=== PATIENT | male | born 1940 | race Caucasian/White ===

== ENCOUNTER 2021-08-09 22:47 | Emergency (ER) | payer MEDICARE, SELFPAY ==
[2021-08-09 22:55] VITALS: BP 94/58; PULSE 85; RESP 17; TEMP 37.3; O2SAT 96; BMI 21.4
--- NOTE | 2021-08-10 00:43 | XRR_ITS ---
PROCEDURE INFORMATION: Exam: XR Chest Exam date and time: 08/10/2021 12:43 AM Age: 80 years old Clinical indication: Patient HX: C/O fever with loss of appetite. TECHNIQUE: Imaging protocol: XR of the chest. Views: 1 view. COMPARISON: No relevant prior studies available. FINDINGS: Lungs: Unremarkable. No consolidation. Pleural spaces: Unremarkable. No pleural effusion. No pneumothorax. Heart/Mediastinum: Unremarkable. No cardiomegaly. Bones/joints: Dextroscoliosis. XR/XR chest 1V portable [id number] IMPRESSION: No acute findings.
[2021-08-10 02:57] LABS: Basophils # 0.1 10^3/uL (0.0-0.1); Basophils % 0.5 %; Eosinophils % 0.1 %; Hematocrit 43.4 % (42.0-52.0); Hemoglobin 14.5 g/dL (11.7-16.6); Lymphocytes # 0.7 10^3/uL (0.8-4.8); Lymphocytes % 4.2 %; Mean Corpuscular HGB Conc 33.4 g/dL (30.0-36.0); Mean Corpuscular Hemoglobin 30.5 pg (28.0-34.0); Mean Corpuscular Volume 91.2 fl (80-94); Mean Platelet Volume 10.1 fL (7.4-10.4); Monocytes # 1.2 10^3/uL (0.2-0.9); Monocytes % 7.6 %; Neutrophils # 14.23 10^3/uL (1.8-7.7); Neutrophils % 86.9 %; Nucleated Red Blood Cells % 0 %; Platelet Count 183 10^3/cmm (130-400); Red Blood Count 4.76 10^6/uL (4.1-5.3); Red Cell Distribution Width 13.2 % (12.1-15.1); White Blood Count 16.4 10^3/uL (4.0-10.0)
--- NOTE | 2021-08-10 03:03 | CTR_ITS ---
PROCEDURE INFORMATION: Exam: CT Abdomen And Pelvis With Contrast Exam date and time: 08/10/2021 3:03 AM Age: 80 years old Clinical indication: Abdominal pain; Prior surgery; Surgery type: Gb; Patient HX: Periumbilical pain with fever and elevated wbc. ; Additional info: Abd oain TECHNIQUE: Imaging protocol: Computed tomography of the abdomen and pelvis with contrast. Radiation optimization: All CT scans at this facility use at least one of these dose optimization techniques: automated exposure control; mA and/or kV adjustment per patient size (includes targeted exams where dose is matched to clinical indication); or iterative reconstruction. Contrast material: OMNI 300; Contrast volume: 95 ml; Contrast route: INTRAVENOUS (IV); COMPARISON: CR (CHEST, ) 08/10/2021 2:59 AM RADIATION DOSE METRICS: Total DLP (mGy-cm): 956.62 FINDINGS: Lungs: Bibasilar fibrosis or scarring and tiny right basilar calcified granulomas. Liver: No acute abnormality. Incidental small inferior right hepatic lobe cyst. Gallbladder and bile ducts: Previous cholecystectomy. Pancreas: No acute abnormality. No ductal dilation. Spleen: No acute abnormality. Adrenal glands: No acute abnormality. No mass. Kidneys and ureters: Incidental simple appearing 6 cm posterior left renal cyst. No hydronephrosis or hydroureter. Stomach and bowel: A couple mid and distal duodenal diverticula. No significant or disproportionate large or small bowel distention. Fluid within small bowel with scattered air-fluid levels. [id number] amount of gas and stool within the colon. Colonic diverticulosis without CT evidence of diverticulitis. Appendix: No findings to suggest acute appendicitis. Intraperitoneal space: No significant fluid collection. No free air. Vasculature: Atherosclerotic vascular calcification. No aortic aneurysm. Lymph nodes: No enlarged lymph nodes. Urinary bladder: Mildly thickened but incompletely distended urinary bladder. Reproductive: Enlarged prostate which indents the urinary bladder base. Bones/joints: No acute osseous abnormality. No dislocation. Soft tissues: Mild right inguinal scarring. CT/CT abdomen pelvis w con* [id number] IMPRESSION: 1. Mild nonspecific ileus versus enteritis. 2. Colonic diverticulosis without CT evidence of diverticulitis. 3. Mildly thickened urinary bladder which may be secondary to incomplete distention versus cystitis/UTI. 4. Enlarged prostate which indents the urinary bladder base. 5. Previous cholecystectomy. COMMENTS: Consistent with the [employer]'s Incidental Findings Committee white paper (J Am Umesh Radiol 2018): Any incidental renal lesion less than 1 cm or classified as too small to characterize, or any incidental cystic renal lesion characterized as simple-appearing, is likely benign. No follow-up imaging is recommended for these lesions per consensus recommendations based on imaging criteria.
--- NOTE | 2021-08-10 03:11 | W.ED.FEVER ---
HPI - Fever General: Chief Complaint: Fever Stated Complaint: FEVER Time Seen by Provider: 08/10/21 02:59 Source: patient Mode of arrival: ambulatory Limitations: no limitations History of Present Illness: 80-year-old male states that over the last 5 to 6 days has been having generalized abdominal pain that is been cramping in nature states that it is currently a 4 out of 10 at its worst was yesterday about a 7 out of 10. He states that he is also had low-grade fevers he does have a temperature 99.2 here. Had some nausea denies any vomiting or diarrhea. Denies any worsening improving factors he is resting comfortably here. Denies any cough or congestion. Associated symptoms: Reports abdominal pain and chills; Deny chest pain, dysuria or headache(s) Review of Systems Const: Reports: fever(s) and chills Eyes: Denies: blurry vision or eye discomfort ENMT: Denies: throat pain or dental pain Card: Denies: chest pain Resp: Denies: dyspnea GI: Reports: abdominal pain : Denies: dysuria Musc: Denies: neck pain or back pain Skin/Breast: Denies: rash Neuro: Denies: headache(s) Psych: Denies: depression Eddie/Lymph: Denies: easy bruising All/Imm: Denies: urticaria PFSH ED PFSH: Family History (Updated 08/10/21 @ 03:12 by Bret Quesada MD) Denies family history of Cancer Social History (Updated 08/10/21 @ 03:12 by Bret Quesada MD) Substance/Drug Use: never Physical Exam Const: COMMON NORMALS: patient oriented x3 and healthy appearing HENMT: COMMON NORMALS: normocephalic and atraumatic HEAD & SCALP: normocephalic and atraumatic Eye: COMMON NORMALS: Equal, round and reactive pupils present and EOMs intact bilaterally PUPIL: Yes Equal, round and reactive pupils present Neck/C-Spine: COMMON NORMALS: full ROM and supple Chest: COMMONS NORMALS: normal inspection of the chest and normal palpation of entire chest wall Resp: COMMON NORMALS: normal respiratory effort, No retractions, No use of accessory muscles and clear to auscultation bilaterally AUSCULTATION: clear to auscultation bilaterally Cardio: COMMON NORMALS: regular rate, regular rhythm and No murmurs present (Cardio) RATE: regular rate RHYTHM: regular rhythm GI: COMMON NORMALS: Normal to inspection, nondistended, normoactive bowel sounds present, Soft to palpation, non-tender and no masses PALPATION: Yes Soft to palpation Extremity: COMMON NORMALS: normal to inspection and full ROM Neuro: COMMON NORMALS: patient oriented x3, moves all extremities and no focal motor deficits Psych: COMMON NORMALS: mental status grossly normal, Normal thought process present and cooperative THOUGHT PROCESS: Normal thought process present Skin: COMMON NORMALS: no rashes or lesions noted and no wounds GENERAL SKIN EXAM: no rashes or lesions noted Course Vital Signs: Vital signs: Vital Signs Temperature 99.2 F 08/09/21 22:55 Pulse Rate 82 08/10/21 04:04 Respiratory Rate 17 08/10/21 04:04 Blood Pressure 102/54 08/10/21 04:04 Pulse Oximetry 94 08/10/21 04:04 MDM - Fever Medical Decision Making Patient presents here with some abdominal cramping especially his lower abdominal area along with a fever. Does have an elevated white count possible urinary tract infection seen on CT does have hematuria as well. Lactates normal his exam initially and at discharge is benign with no signs of acute abdomen. We will place him on Keflex getting follow-up with urology. If he has any worsening symptoms he is to return immediately he understands and agrees to plan. Lab Data : 08/10/21 02:54 08/10/21 02:54 Radiology Impressions Chest X-Ray 08/10/21 00:43 IMPRESSION: No acute findings. Abdomen/Pelvis CT 08/10/21 03:03 IMPRESSION: 1. Mild nonspecific ileus versus enteritis. 2. Colonic diverticulosis without CT evidence of diverticulitis. 3. Mildly thickened urinary bladder which may be secondary to incomplete distention versus cystitis/UTI. 4. Enlarged prostate which indents the urinary bladder base. 5. Previous cholecystectomy. COMMENTS: Consistent with the [employer]'s Incidental Findings Committee white paper (J Am Umesh Radiol 2018): Any incidental renal lesion less than 1 cm or classified as too small to characterize, or any incidental cystic renal lesion characterized as simple-appearing, is likely benign. No follow-up imaging is recommended for these lesions per consensus recommendations based on imaging criteria. Laboratory Results WBC 16.4 10^3/uL (4.0-10.0) H 08/10/21 02:54 RBC 4.76 10^6/uL (4.1-5.3) 08/10/21 02:54 Hgb 14.5 g/dL (11.7-16.6) 08/10/21 02:54 Hct 43.4 % (42.0-52.0) 08/10/21 02:54 MCV 91.2 fl (80-94) 08/10/21 02:54 MCH 30.5 pg (28.0-34.0) 08/10/21 02:54 MCHC 33.4 g/dL (30.0-36.0) 08/10/21 02:54 RDW 13.2 % (12.1-15.1) 08/10/21 02:54 Plt Count 183 10^3/cmm (130-400) 08/10/21 02:54 MPV 10.1 fL (7.4-10.4) 08/10/21 02:54 Neut % (Auto) 86.9 % 08/10/21 02:54 Lymph % (Auto) 4.2 % 08/10/21 02:54 [place] % (Auto) 7.6 % 08/10/21 02:54 Eos % (Auto) 0.1 % 08/10/21 02:54 Baso % (Auto) 0.5 % 08/10/21 02:54 Neut # (Auto) 14.23 10^3/uL (1.8-7.7) H 08/10/21 02:54 Lymph # (Auto) 0.7 10^3/uL (0.8-4.8) L 08/10/21 02:54 [place] # (Auto) 1.2 10^3/uL (0.2-0.9) H 08/10/21 02:54 Eos # (Auto) 0.0 10^3/uL (0.0-0.8) 08/10/21 02:54 Baso # (Auto) 0.1 10^3/uL (0.0-0.1) 08/10/21 02:54 Nucleated RBC % (auto) 0 % 08/10/21 02:54 Nucleated RBCs # 0.0 /100WBC 08/10/21 02:54 Sodium 132 mmol/L (136-145) L 08/10/21 02:54 Potassium 4.7 mmol/L (3.5-5.1) 08/10/21 02:54 Chloride 98 mmol/L (98-107) 08/10/21 02:54 Carbon Dioxide 18 mmol/L (22-29) L 08/10/21 02:54 Anion Gap 20.7 (5-19) H 08/10/21 02:54 BUN 28 mg/dL (8-23) H 08/10/21 02:54 Creatinine 1.0 mg/dL (0.7-1.2) 08/10/21 02:54 GFR Calculation Not Reportable 08/10/21 02:54 Glucose 143 mg/dL (65-115) H 08/10/21 02:54 Calculated Osmolality 282 mOsm/kg (285-295) L 08/10/21 02:54 Lactate 1.3 mmol/L (0.5-2.2) 08/10/21 03:47 Calcium 9.5 mg/dL (8.5-10.5) 08/10/21 02:54 Total Bilirubin 0.7 mg/dL (0.15-1.2) 08/10/21 02:54 AST 47 U/L (0-40) H 08/10/21 02:54 ALT 31 U/L (0-41) 08/10/21 02:54 Alkaline Phosphatase 115 IU/L (40-130) 08/10/21 02:54 Total Protein 7.3 g/dL (6.6-8.7) 08/10/21 02:54 Albumin 3.7 g/dL (3.5-5.2) 08/10/21 02:54 Globulin 3.6 g/dL (1.3-4.6) 08/10/21 02:54 Lipase 34 U/L (13-60) 08/10/21 02:54 Urine Color Yellow (Yellow) 08/10/21 05:28 Urine Appearance Sl hazy (CLEAR) 08/10/21 05:28 Urine pH 5 (5-7) 08/10/21 05:28 Ur Specific [place] 1.020 (1.005-1.030) 08/10/21 05:28 Urine Protein Trace (Negative) 08/10/21 05:28 Urine Glucose (UA) Norm (Normal) 08/10/21 05:28 Urine Ketones 1+ (Negative) H 08/10/21 05:28 Urine Blood 3+ (Negative) H 08/10/21 05:28 Urine Nitrate Negative (Negative) 08/10/21 05:28 Urine Bilirubin 1+ (Negative) H 08/10/21 05:28 Urine Urobilinogen 1 mg/dL (Negative) H 08/10/21 05:28 Ur Leukocyte Esterase Negative (Negative) 08/10/21 05:28 Urine RBC >100 /hpf (0-2) H 08/10/21 05:28 Urine WBC 0-4 /hpf (0-5) H 08/10/21 05:28 Ur Squamous Epith Cells 0-4 /hpf (0-5) H 08/10/21 05:28 Amorphous Sediment Not Reportable 08/10/21 05:28 Urine Bacteria Trace /hpf (NONE) 08/10/21 05:28 Hyaline Casts 0-4 /lpf H 08/10/21 05:28 Urine Mucus 2+ /hpf 08/10/21 05:28 SARS-CoV-2 Ag (Rapid) Negative (Negative) 08/10/21 03:37 Imaging Data CXR: Radiologist's impression: XR/XR chest 1V portable [id number] IMPRESSION: No acute findings. CT Abd/Pel: Radiologist's impression: IMPRESSION: 1. Mild nonspecific ileus versus enteritis. 2. Colonic diverticulosis without CT evidence of diverticulitis. 3. Mildly thickened urinary bladder which may be secondary to incomplete distention versus cystitis/UTI. 4. Enlarged prostate which indents the urinary bladder base. 5. Previous cholecystectomy. 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
[2021-08-10 03:25] LABS: Alanine Aminotransferase 31 U/L (0-41); Albumin Level 3.7 g/dL (3.5-5.2); Alkaline Phosphatase 115 IU/L (40-130); Anion Gap 20.7 (5-19); Aspartate Amino Transferase 47 U/L (0-40); Blood Urea Nitrogen 28 mg/dL (8-23); Calcium 9.5 mg/dL (8.5-10.5); Carbon Dioxide 18 mmol/L (22-29); Chloride 98 mmol/L (98-107); Globulin 3.6 g/dL (1.3-4.6); Glucose 143 mg/dL (65-115); Lipase 34 U/L (13-60); Osmolality Calculated 282 mOsm/kg (285-295); Potassium 4.7 mmol/L (3.5-5.1); Sodium 132 mmol/L (136-145); Total Bilirubin 0.7 mg/dL (0.15-1.2); Total Protein 7.3 g/dL (6.6-8.7)
[2021-08-10 03:28] VITALS: BP 99/61; PULSE 88; RESP 17; O2SAT 93
[2021-08-10] MEDS: sodium chloride 0.9% 1,000 ML 999 ML IV (03:58)
[2021-08-10] MEDS: ondansetron 2 mg/ML SDV 2 mL 4 MG IVP (03:59)
[2021-08-10] MEDS: acetaminophen 325 mg Tablet 650 MG PO (03:59)
[2021-08-10 04:04] VITALS: BP 102/54; PULSE 82; RESP 17; O2SAT 94
[2021-08-10 04:32] LABS: Lactate (Lactic Acid level) 1.3 mmol/L (0.5-2.2)
[2021-08-10] MEDS: iohexol 300 mg/mL 100 mL Btl IV (04:37)
[2021-08-10 04:46] LABS: SARS Covid-2 Antigen Negative (Negative)
[2021-08-10 05:38] LABS: Bilirubin Urine 1+ (Negative); Blood Urine 3+ (Negative); Glucose Urine UA Norm (Normal); Ketones Urine 1+ (Negative); Leukocyte Esterase Urine Negative (Negative); Nitrate Urine Negative (Negative); Protein Urine Trace (Negative); Urine Appearance SL Hazy (CLEAR); Urine Color Yellow (Yellow); Urobilinogen Urine 1 mg/dL (Negative); pH Urine 5 (5-7)
[2021-08-10 05:39] LABS: Add Urine Culture? Yes; Add Urine Microscopic? YES; Bacteria Urine TRACE /hpf; Hyaline Casts Urine 0-4 /lpf; Mucus Urine 2+ /hpf; RBC Urine >100 /hpf (0-2); Squamous Epithelial Cell Urine 0-4 /hpf (0-5); WBC Urine 0-4 /hpf (0-5)
[2021-08-10 05:50] VITALS: TEMP 36.9
[2021-08-10 05:54] VITALS: BP 113/60; PULSE 76; RESP 18; O2SAT 95
--- NOTE | 2021-08-11 11:39 | DCPLANNER ---
Addendum entered by Deana Chavez 09/23/21 11:40: Patient had a follow up appointment scheduled for 09.02.[address] - patient did attend appointment. Addendum entered by Deana Chavez 08/12/21 04:32: Patient has a follow up appointment scheduled for Thursday, September 02, 2021 at 11:[address] Clinic will call patient with appointment information. Original Note: subcontracts manager had message to schedule a follow up appointment for patient with Dr. St. subcontracts manager emailed patients information to Yohan Baker and Julie at the office of Dr. St. Patients information will be printed and reviewed. Clinic will call patient with appointment information.
== END 2021-08-10 05:52 | disposition home or self-care (01) ==
PROVIDERS: Emergency Provider Emergency Medicine
DX: N30.01 Acute cystitis with hematuria (principal); Z20.822 Contact with and (suspected) exposure to COVID-19
CPT/HCPCS: 36415; 71045; 74177; 80053; 81001; 83605; 83690; 85025; 87086; 87426; 96361; 96374; 99284; J2405; J7030; Q9967

== ENCOUNTER → 2021-09-02 11:39 | Outpatient (BNVA) | payer MEDICARE, SELFPAY | PROVIDERS: PCP Urology; Visit Provider Urology | DX: R31.29 Other microscopic hematuria (principal) | CPT/HCPCS: 81003 ==

== ENCOUNTER 2021-12-30 15:41 | Emergency (ER) | payer MEDICARE, SELFPAY ==
[2021-12-30 16:02] VITALS: BP 117/74; PULSE 74; RESP 18; TEMP 37.6; O2SAT 97; BMI 21.6
[2021-12-30 17:02] LABS: Basophils # 0.1 10^3/uL (0.0-0.1); Eosinophils # 0.2 10^3/uL (0.0-0.8); Eosinophils % 1.8 %; Hematocrit 42.9 % (42.0-52.0); Hemoglobin 14.9 g/dL (11.7-16.6); Lymphocytes # 1.1 10^3/uL (0.8-4.8); Lymphocytes % 12.2 %; Mean Corpuscular HGB Conc 34.7 g/dL (30.0-36.0); Mean Corpuscular Hemoglobin 30.7 pg (28.0-34.0); Mean Corpuscular Volume 88.3 fl (80-94); Mean Platelet Volume 9.8 fL (7.4-10.4); Monocytes # 1.3 10^3/uL (0.2-0.9); Monocytes % 14.1 %; Neutrophils # 6.61 10^3/uL (1.8-7.7); Neutrophils % 70.4 %; Nucleated Red Blood Cells % 0 %; Platelet Count 165 10^3/cmm (130-400); Red Blood Count 4.86 10^6/uL (4.1-5.3); Red Cell Distribution Width 13.2 % (12.1-15.1); White Blood Count 9.4 10^3/uL (4.0-10.0)
[2021-12-30 17:21] LABS: Alanine Aminotransferase 21 U/L (0-41); Albumin Level 3.7 g/dL (3.5-5.2); Alkaline Phosphatase 74 IU/L (40-130); Anion Gap 16.5 (5-19); Aspartate Amino Transferase 27 U/L (0-40); Blood Urea Nitrogen 19 mg/dL (8-23); Calcium 8.8 mg/dL (8.5-10.5); Carbon Dioxide 22 mmol/L (22-29); Chloride 100 mmol/L (98-107); Globulin 4.1 g/dL (1.3-4.6); Glucose 67 mg/dL (65-115); Osmolality Calculated 279 mOsm/kg (285-295); Potassium 4.5 mmol/L (3.5-5.1); Sodium 134 mmol/L (136-145); Total Bilirubin 0.6 mg/dL (0.15-1.2); Total Protein 7.8 g/dL (6.6-8.7)
--- NOTE | 2021-12-30 17:36 | W.ED.WEAKNES ---
Documented by User: Maxim Louis DO 01/02/22 08:48 HPI - Weakness General: Chief complaint: Weakness Stated complaint: PCP sent for possible sepsis Time Seen by Provider: 12/30/21 17:35 Source: patient Mode of arrival: ambulatory Limitations: no limitations History of Present Illness: 81 yo male with generalized weakness. Sent in by his PCP. Patient was reporting hypotension generalized weakness. Report was at the doctor's office his blood pressures in the 80s he says he is felt weak for the last several days. He reports having history of pyelonephritis he still has several times the past he denies dysuria urgency or frequency or hematuria. MD Complaint: generalized weakness Onset (ago): minute(s) Duration: constant Location: generalized Severity: mild Relieving factors: none Exacerbating factors: none Associated symptoms: Denies chest pain, chills, confusion, melena, decreased appetite, diaphoresis, dysuria, easy bruising, fever(s), headache(s), myalgias, nausea, rash, short of breath, syncope or vomiting Review of Systems Const: Denies: fever(s), chills or diaphoresis Card: Denies: chest pain or syncope GI: Denies: nausea, vomiting or melena : Denies: dysuria Neuro: Denies: headache(s) or confusion Eddie/Lymph: Denies: easy bruising PFSH ED PFSH: Medical History (Updated 01/02/22 @ 08:48 by Maxim Louis DO) Diabetes mellitus Hematuria Myasthenia gravis Surgical History (Updated 01/02/22 @ 08:48 by Maxim Louis DO) Hx of appendectomy Hx of cholecystectomy Family History Father , AT 73 Heart disease Mother , AT 64 Diabetes Social History Smoking and tobacco status: never smoked Alcohol intake: never Marital status: Current occupational status: retired and disabled History of recent travel: No Physical Exam Const: GENERAL APPEARANCE: cooperative and comfortable ORIENTATION/CONSCIOUSNESS: Yes awake, Yes oriented to person, Yes oriented to place and Yes oriented to time HENMT: COMMON NORMALS: normocephalic and atraumatic HEAD & SCALP: normocephalic and atraumatic Neck/C-Spine: COMMON NORMALS: no JVD Resp: COMMON NORMALS: normal respiratory effort, No retractions, No use of accessory muscles and clear to auscultation bilaterally AUSCULTATION: clear to auscultation bilaterally Cardio: COMMON NORMALS: no JVD, regular rate, regular rhythm and No murmurs present (Cardio) RATE: regular rate RHYTHM: regular rhythm GI: COMMON NORMALS: Soft to palpation and No hepatosplenomegaly present AUSCULTATION: Yes normoactive bowel sounds PALPATION: Yes Soft to palpation, No Tenderness to palpation present (GI), No Guarding due to palpation present (GI) and Yes No hepatosplenomegaly present Extremity: COMMON NORMALS: normal to inspection, capillary refill normal, no clubbing, cyanosis or edema, no calf tenderness and no pedal edema Neuro: SENSORIUM/ORIENTATION: Yes oriented to person, Yes oriented to place and Yes oriented to time Skin: COMMON NORMALS: no rashes or lesions noted GENERAL SKIN EXAM: no rashes or lesions noted Course Vital Signs: Vital signs: Vital Signs Temperature 99.7 F H 12/30/21 16:02 Pulse Rate 72 12/30/21 20:03 Respiratory Rate 16 12/30/21 20:03 Blood Pressure 140/68 12/30/21 20:03 Pulse Oximetry 98 12/30/21 20:03 MDM - Weakness Medical Decision Making Care turned over to Dr. Benton at change of shift see his notes for final diagnosis and disposition Chest x-ray reveals a right lower lobe thin infiltrate, likely early. CBC is normal. BMP is normal. Urinalysis shows hematuria without infection. He will be placed on doxycycline, allowed home. His temperature was 99.7 here. He has not hypoxic. He has normal vital signs Lab Data : 12/30/21 16:55 12/30/21 16:55 Radiology Impressions Chest X-Ray 12/30/21 19:27 IMPRESSION: Background chronic interstitial lung disease. Cannot exclude more localized right lower lobe airspace disease. Consider pneumonia. Laboratory Results WBC 9.4 10^3/uL (4.0-10.0) 12/30/21 16:55 RBC 4.86 10^6/uL (4.1-5.3) 12/30/21 16:55 Hgb 14.9 g/dL (11.7-16.6) 12/30/21 16:55 Hct 42.9 % (42.0-52.0) 12/30/21 16:55 MCV 88.3 fl (80-94) 12/30/21 16:55 MCH 30.7 pg (28.0-34.0) 12/30/21 16:55 MCHC 34.7 g/dL (30.0-36.0) 12/30/21 16:55 RDW 13.2 % (12.1-15.1) 12/30/21 16:55 Plt Count 165 10^3/cmm (130-400) 12/30/21 16:55 MPV 9.8 fL (7.4-10.4) 12/30/21 16:55 Neut % (Auto) 70.4 % 12/30/21 16:55 Lymph % (Auto) 12.2 % 12/30/21 16:55 [place] % (Auto) 14.1 % 12/30/21 16:55 Eos % (Auto) 1.8 % 12/30/21 16:55 Baso % (Auto) 1.0 % 12/30/21 16:55 Neut # (Auto) 6.61 10^3/uL (1.8-7.7) 12/30/21 16:55 Lymph # (Auto) 1.1 10^3/uL (0.8-4.8) 12/30/21 16:55 [place] # (Auto) 1.3 10^3/uL (0.2-0.9) H 12/30/21 16:55 Eos # (Auto) 0.2 10^3/uL (0.0-0.8) 12/30/21 16:55 Baso # (Auto) 0.1 10^3/uL (0.0-0.1) 12/30/21 16:55 Nucleated RBC % (auto) 0 % 12/30/21 16:55 Nucleated RBCs # 0.0 /100WBC 12/30/21 16:55 Sodium 134 mmol/L (136-145) L 12/30/21 16:55 Potassium 4.5 mmol/L (3.5-5.1) 12/30/21 16:55 Chloride 100 mmol/L (98-107) 12/30/21 16:55 Carbon Dioxide 22 mmol/L (22-29) 12/30/21 16:55 Anion Gap 16.5 (5-19) 12/30/21 16:55 BUN 19 mg/dL (8-23) 12/30/21 16:55 Creatinine 1.0 mg/dL (0.7-1.2) 12/30/21 16:55 GFR Calculation Not Reportable 12/30/21 16:55 Glucose 67 mg/dL (65-115) 12/30/21 16:55 Calculated Osmolality 279 mOsm/kg (285-295) L 12/30/21 16:55 Calcium 8.8 mg/dL (8.5-10.5) 12/30/21 16:55 Total Bilirubin 0.6 mg/dL (0.15-1.2) 12/30/21 16:55 AST 27 U/L (0-40) 12/30/21 16:55 ALT 21 U/L (0-41) 12/30/21 16:55 Alkaline Phosphatase 74 IU/L (40-130) 12/30/21 16:55 Total Protein 7.8 g/dL (6.6-8.7) 12/30/21 16:55 Albumin 3.7 g/dL (3.5-5.2) 12/30/21 16:55 Globulin 4.1 g/dL (1.3-4.6) 12/30/21 16:55 Urine Color Yellow (Yellow) 12/30/21 17:25 Urine Appearance Clear (CLEAR) 12/30/21 17:25 Urine pH 5 (5-7) 12/30/21 17:25 Ur Specific [place] 1.020 (1.005-1.030) 12/30/21 17:25 Urine Protein Neg (Negative) 12/30/21 17:25 Urine Glucose (UA) Norm (Normal) 12/30/21 17:25 Urine Ketones Negative (Negative) 12/30/21 17:25 Urine Blood 3+ (Negative) H 12/30/21 17:25 Urine Nitrate Negative (Negative) 12/30/21 17:25 Urine Bilirubin Neg (Negative) 12/30/21 17:25 Urine Urobilinogen Norm mg/dL (Negative) 12/30/21 17:25 Ur Leukocyte Esterase Negative (Negative) 12/30/21 17:25 Urine RBC 5-10 /hpf (0-2) H 12/30/21 17:25 Urine WBC 0-4 /hpf (0-5) H 12/30/21 17:25 Ur Squamous Epith Cells 0-4 /hpf (0-5) H 12/30/21 17:25 Amorphous Sediment Not Reportable 12/30/21 17:25 Urine Bacteria None /hpf (NONE) 12/30/21 17:25 Discharge Plan Discharge Patient Disposition: Home Clinical Impression: Pneumonia Condition: Stable Prescriptions: New doxycycline hyclate 100 mg capsule 100 mg PO BID 10 Days Qty: 20 0RF No Action carvedilol 6.25 mg tablet 6.25 mg PO BID 0RF Rx Instructions: must administer with a meal/food Levemir FlexTouch U-100 Insuln 100 unit/mL (3 mL) insulin pen 100 unit SUBCUT DAILY 0RF acyclovir 200 mg capsule 200 mg PO DAILY 0RF docusate sodium 100 mg capsule 100 mg PO DAILY 0RF pyridostigmine bromide 60 mg tablet 60 mg PO TID 0RF pantoprazole 40 mg tablet,delayed release (DR/EC) 40 mg PO DAILY 0RF multivitamin Tablet 1 tab PO DAILY 0RF simvastatin 40 mg tablet 40 mg PO DAILY 0RF ramipril 5 mg capsule 5 mg PO DAILY 0RF rivaroxaban 20 mg tablet 20 mg PO DAILY 0RF Rx Instructions: must administer with evening meal insulin aspart U-100 [Novolog U-100 Insulin aspart] 100 unit/mL solution 10 unit SUBCUT TID 0RF Discharge Orders: Discharge ED (Routine); Ordered 12/30/21 Ordered By: Jackson Benton Referrals: Amado St MD [Primary Care Provider] - Discharge Diet: Advance as tolerated Discharge Activity: Increase activity as tolerated Patient Instructions: Pneumonia (ED) Activity Restrictions/Additional Instructions: Watch your temperature at least twice daily for the next 48 hours. Antibiotics as directed. Return for inability to control temperature with Tylenol, etc. Return also for worsening mental status, shortness of breath, fever despite 3-4 doses of antibiotics, any other concerning symptoms. Coding Level of Care Code ED Waterworks Operator for Chg Fwd Exam Comprehensive Documented by User: Jackson Benton DO 01/02/22 13:25 HPI - Weakness General: Chief complaint: Weakness Stated complaint: PCP sent for possible sepsis Time Seen by Provider: 12/30/21 17:35 History of Present Illness: 81 yo male with generalized weakness. Sent in by his doctor. No specific complaints. PFSH ED PFSH: Medical History (Updated 01/02/22 @ 08:48 by Maxim Louis DO) Diabetes mellitus Hematuria Myasthenia gravis Surgical History (Updated 01/02/22 @ 08:48 by Maxim Louis DO) Hx of appendectomy Hx of cholecystectomy Family History Father , AT 73 Heart disease Mother , AT 64 Diabetes Social History Smoking and tobacco status: never smoked Alcohol intake: never Marital status: Current occupational status: retired and disabled History of recent travel: No Course Vital Signs: Vital signs: Vital Signs Temperature 99.7 F H 12/30/21 16:02 Pulse Rate 72 12/30/21 20:03 Respiratory Rate 16 12/30/21 20:03 Blood Pressure 140/68 12/30/21 20:03 Pulse Oximetry 98 12/30/21 20:03 MDM - Weakness Medical Decision Making Chest x-ray reveals a right lower lobe thin infiltrate, likely early. CBC is normal. BMP is normal. Urinalysis shows hematuria without infection. He will be placed on doxycycline, allowed home. His temperature was 99.7 here. He has not hypoxic. He has normal vital signs Lab Data : 12/30/21 16:55 12/30/21 16:55 Radiology Impressions Chest X-Ray 12/30/21 19:27 IMPRESSION: Background chronic interstitial lung disease. Cannot exclude more localized right lower lobe airspace disease. Consider pneumonia. Laboratory Results WBC 9.4 10^3/uL (4.0-10.0) 12/30/21 16:55 RBC 4.86 10^6/uL (4.1-5.3) 12/30/21 16:55 Hgb 14.9 g/dL (11.7-16.6) 12/30/21 16:55 Hct 42.9 % (42.0-52.0) 12/30/21 16:55 MCV 88.3 fl (80-94) 12/30/21 16:55 MCH 30.7 pg (28.0-34.0) 12/30/21 16:55 MCHC 34.7 g/dL (30.0-36.0) 12/30/21 16:55 RDW 13.2 % (12.1-15.1) 12/30/21 16:55 Plt Count 165 10^3/cmm (130-400) 12/30/21 16:55 MPV 9.8 fL (7.4-10.4) 12/30/21 16:55 Neut % (Auto) 70.4 % 12/30/21 16:55 Lymph % (Auto) 12.2 % 12/30/21 16:55 [place] % (Auto) 14.1 % 12/30/21 16:55 Eos % (Auto) 1.8 % 12/30/21 16:55 Baso % (Auto) 1.0 % 12/30/21 16:55 Neut # (Auto) 6.61 10^3/uL (1.8-7.7) 12/30/21 16:55 Lymph # (Auto) 1.1 10^3/uL (0.8-4.8) 12/30/21 16:55 [place] # (Auto) 1.3 10^3/uL (0.2-0.9) H 12/30/21 16:55 Eos # (Auto) 0.2 10^3/uL (0.0-0.8) 12/30/21 16:55 Baso # (Auto) 0.1 10^3/uL (0.0-0.1) 12/30/21 16:55 Nucleated RBC % (auto) 0 % 12/30/21 16:55 Nucleated RBCs # 0.0 /100WBC 12/30/21 16:55 Sodium 134 mmol/L (136-145) L 12/30/21 16:55 Potassium 4.5 mmol/L (3.5-5.1) 12/30/21 16:55 Chloride 100 mmol/L (98-107) 12/30/21 16:55 Carbon Dioxide 22 mmol/L (22-29) 12/30/21 16:55 Anion Gap 16.5 (5-19) 12/30/21 16:55 BUN 19 mg/dL (8-23) 12/30/21 16:55 Creatinine 1.0 mg/dL (0.7-1.2) 12/30/21 16:55 GFR Calculation Not Reportable 12/30/21 16:55 Glucose 67 mg/dL (65-115) 12/30/21 16:55 Calculated Osmolality 279 mOsm/kg (285-295) L 12/30/21 16:55 Calcium 8.8 mg/dL (8.5-10.5) 12/30/21 16:55 Total Bilirubin 0.6 mg/dL (0.15-1.2) 12/30/21 16:55 AST 27 U/L (0-40) 12/30/21 16:55 ALT 21 U/L (0-41) 12/30/21 16:55 Alkaline Phosphatase 74 IU/L (40-130) 12/30/21 16:55 Total Protein 7.8 g/dL (6.6-8.7) 12/30/21 16:55 Albumin 3.7 g/dL (3.5-5.2) 12/30/21 16:55 Globulin 4.1 g/dL (1.3-4.6) 12/30/21 16:55 Urine Color Yellow (Yellow) 12/30/21 17:25 Urine Appearance Clear (CLEAR) 12/30/21 17:25 Urine pH 5 (5-7) 12/30/21 17:25 Ur Specific [place] 1.020 (1.005-1.030) 12/30/21 17:25 Urine Protein Neg (Negative) 12/30/21 17:25 Urine Glucose (UA) Norm (Normal) 12/30/21 17:25 Urine Ketones Negative (Negative) 12/30/21 17:25 Urine Blood 3+ (Negative) H 12/30/21 17:25 Urine Nitrate Negative (Negative) 12/30/21 17:25 Urine Bilirubin Neg (Negative) 12/30/21 17:25 Urine Urobilinogen Norm mg/dL (Negative) 12/30/21 17:25 Ur Leukocyte Esterase Negative (Negative) 12/30/21 17:25 Urine RBC 5-10 /hpf (0-2) H 12/30/21 17:25 Urine WBC 0-4 /hpf (0-5) H 12/30/21 17:25 Ur Squamous Epith Cells 0-4 /hpf (0-5) H 12/30/21 17:25 Amorphous Sediment Not Reportable 12/30/21 17:25 Urine Bacteria None /hpf (NONE) 12/30/21 17:25 Discharge Plan Discharge Patient Disposition: Home Clinical Impression: Pneumonia Condition: Stable Prescriptions: New doxycycline hyclate 100 mg capsule 100 mg PO BID 10 Days Qty: 20 0RF No Action carvedilol 6.25 mg tablet 6.25 mg PO BID 0RF Rx Instructions: must administer with a meal/food Levemir FlexTouch U-100 Insuln 100 unit/mL (3 mL) insulin pen 100 unit SUBCUT DAILY 0RF acyclovir 200 mg capsule 200 mg PO DAILY 0RF docusate sodium 100 mg capsule 100 mg PO DAILY 0RF pyridostigmine bromide 60 mg tablet 60 mg PO TID 0RF pantoprazole 40 mg tablet,delayed release (DR/EC) 40 mg PO DAILY 0RF multivitamin Tablet 1 tab PO DAILY 0RF simvastatin 40 mg tablet 40 mg PO DAILY 0RF ramipril 5 mg capsule 5 mg PO DAILY 0RF rivaroxaban 20 mg tablet 20 mg PO DAILY 0RF Rx Instructions: must administer with evening meal insulin aspart U-100 [Novolog U-100 Insulin aspart] 100 unit/mL solution 10 unit SUBCUT TID 0RF Discharge Orders: Discharge ED (Routine); Ordered 12/30/21 Ordered By: Jackson Benton Referrals: Amado St MD [Primary Care Provider] - Discharge Diet: Advance as tolerated Discharge Activity: Increase activity as tolerated Patient Instructions: Pneumonia (ED) Activity Restrictions/Additional Instructions: Watch your temperature at least twice daily for the next 48 hours. Antibiotics as directed. Return for inability to control temperature with Tylenol, etc. Return also for worsening mental status, shortness of breath, fever despite 3-4 doses of antibiotics, any other concerning symptoms. Coding Level of Care Code ED Waterworks Operator for g Fwd Exam Comprehensive
[2021-12-30 17:49] VITALS: BP 129/64; PULSE 73; RESP 16; O2SAT 95
[2021-12-30 18:01] LABS: Add Urine Microscopic? YES; Bilirubin Urine Neg (Negative); Blood Urine 3+ (Negative); Glucose Urine UA Norm (Normal); Ketones Urine Negative (Negative); Leukocyte Esterase Urine Negative (Negative); Nitrate Urine Negative (Negative); Protein Urine Neg (Negative); Urine Appearance Clear (CLEAR); Urine Color Yellow (Yellow); Urobilinogen Urine Norm (Negative); pH Urine 5 (5-7)
[2021-12-30 18:05] LABS: Add Urine Culture? No; Squamous Epithelial Cell Urine 0-4 /hpf (0-5); WBC Urine 0-4 /hpf (0-5)
--- NOTE | 2021-12-30 19:27 | XRR_ITS ---
PROCEDURE INFORMATION: Exam: XR Chest Exam date and time: 12/30/2021 7:33 PM Age: 81 years old Clinical indication: Other: Weakness TECHNIQUE: Imaging protocol: Radiologic exam of the chest. Views: 1 view. COMPARISON: CR XR chest 1V portable [id number] 08/10/2021 2:59 AM FINDINGS: Lungs: Reticular changes of interstitium. Suspect lower lung fibrosis. No definite consolidation. However, increased infrahilar markings on the right are nonspecific. Pleural spaces: Unremarkable. No pleural effusion. No pneumothorax. Heart/Mediastinum: Unremarkable. No cardiomegaly. Bones/joints: Unremarkable. XR/XR chest 1V portable [id number] IMPRESSION: Background chronic interstitial lung disease. Cannot exclude more localized right lower lobe airspace disease. Consider pneumonia.
[2021-12-30] MEDS: doxycycline 100 mg Tablet PO (20:00)
[2021-12-30 20:03] VITALS: BP 140/68; PULSE 72; RESP 16; O2SAT 98
== END 2021-12-30 20:07 | disposition home or self-care (01) ==
PROVIDERS: Family Medicine; Emergency Provider Emergency Medicine; PCP Urology
DX: J18.9 Pneumonia, unspecified organism (principal); Z79.4 Long term (current) use of insulin; E11.9 Type 2 diabetes mellitus without complications
CPT/HCPCS: 71045; 80053; 81000; 81001; 85025; 99284

== ENCOUNTER 2022-01-17 12:25 | Observation (INO) | payer MEDICARE, SELFPAY ==
[2022-01-17 12:54] VITALS: BP 83/49; PULSE 87; RESP 20; TEMP 36.7; O2SAT 95; BMI 21.2
--- NOTE | 2022-01-17 13:01 | XRR_ITS ---
PROCEDURE INFORMATION: Exam: XR Chest Exam date and time: 01/17/2022 2:21 PM Age: 81 years old Clinical indication: Shortness of breath; Prior surgery; Surgery type: Gallbladder, appendix TECHNIQUE: Imaging protocol: Radiologic exam of the chest. Views: 1 view. COMPARISON: CR (CHEST, ) 12/30/2021 7:33 PM FINDINGS: Lungs: Unremarkable. No consolidation. Pleural spaces: Unremarkable. No pleural effusion. No pneumothorax. Heart/Mediastinum: Unremarkable. No cardiomegaly. Bones/joints: Unremarkable. XR/XR chest 1V portable [id number] IMPRESSION: No acute findings.
[2022-01-17 13:59] LABS: Influenza A by IFA Negative (Negative); Influenza B by IFA Negative (Negative)
[2022-01-17 14:16] LABS: Add Urine Microscopic? NO; Charge for UA Resulting for Rev
[2022-01-17 14:18] LABS: Bilirubin Urine Neg (Negative); Blood Urine Neg (Negative); Glucose Urine UA Norm (Normal); Ketones Urine Negative (Negative); Leukocyte Esterase Urine Negative (Negative); Nitrate Urine Negative (Negative); Protein Urine Neg (Negative); Urine Appearance Clear (CLEAR); Urine Color Yellow (Yellow); Urobilinogen Urine Norm (Negative); pH Urine 5 (5-7)
[2022-01-17 14:27] LABS: Basophils # 0.1 10^3/uL (0.0-0.1); Basophils % 0.6 %; Eosinophils # 0.1 10^3/uL (0.0-0.8); Eosinophils % 0.6 %; Hematocrit 45.9 % (42.0-52.0); Hemoglobin 15.8 g/dL (11.7-16.6); Lymphocytes # 1.2 10^3/uL (0.8-4.8); Lymphocytes % 5.8 %; Mean Corpuscular HGB Conc 34.4 g/dL (30.0-36.0); Mean Corpuscular Hemoglobin 30.6 pg (28.0-34.0); Mean Corpuscular Volume 88.8 fl (80-94); Monocytes # 1.6 10^3/uL (0.2-0.9); Monocytes % 7.6 %; Neutrophils # 17.95 10^3/uL (1.8-7.7); Neutrophils % 84.2 %; Nucleated Red Blood Cells % 0 %; Platelet Count 239 10^3/cmm (130-400); Red Blood Count 5.17 10^6/uL (4.1-5.3); Red Cell Distribution Width 13.3 % (12.1-15.1); White Blood Count 21.3 10^3/uL (4.0-10.0)
[2022-01-17 14:43] LABS: Lactic Sepsis W/Reflex 2.2 mmol/L (0.5-2.2)
[2022-01-17 15:17] LABS: Alanine Aminotransferase 49 U/L (0-41); Albumin Level 3.8 g/dL (3.5-5.2); Alkaline Phosphatase 80 IU/L (40-130); Anion Gap 14.2 (5-19); Aspartate Amino Transferase 39 U/L (0-40); Blood Urea Nitrogen 25 mg/dL (8-23); Calcium 9.3 mg/dL (8.5-10.5); Carbon Dioxide 29 mmol/L (22-29); Chloride 99 mmol/L (98-107); Globulin 3.2 g/dL (1.3-4.6); Glucose 99 mg/dL (65-115); Osmolality Calculated 290 mOsm/kg (285-295); Potassium 4.2 mmol/L (3.5-5.1); Sodium 138 mmol/L (136-145); Total Bilirubin 0.6 mg/dL (0.15-1.2)
[2022-01-17 15:20] LABS: Procalcitonin 1.91 ng/mL (0-0.5)
[2022-01-17 16:11] LABS: Reflex Lactate Order REFLEX LACTIC ORDERD
[2022-01-17 16:58] LABS: Adenovirus Not Detected (NOT DETECT); Chlamydia Pneumoniae Not Detected (NOT DETECT); Coronavirus 229E,HKU1,NL63,OC4 Not Detected (NOT DETECT); Human Metapneumovirus Not Detected (NOT DETECT); Human Rhinovirus/Enterovirus Not Detected (NOT DETECT); Influenza A Not Detected (NOT DETECT); Influenza A H1 Not Detected (NOT DETECT); Influenza A H1-2009 Not Detected (NOT DETECT); Influenza A H3 Not Detected (NOT DETECT); Influenza B Not Detected (NOT DETECT); Mycoplasma Pneumoniae Not Detected (NOT DETECT); Parainfluenza Virus Type 1 Not Detected (NOT DETECT); Parainfluenza Virus Type 2 Not Detected (NOT DETECT); Parainfluenza Virus Type 3 Not Detected (NOT DETECT); Parainfluenza Virus Type 4 Not Detected (NOT DETECT); Respiratory Syncytial Virus A Not Detected (NOT DETECT); Respiratory Syncytial Virus B Not Detected (NOT DETECT); SARS-COV-2 Not Detected (NOT DETECT)
[2022-01-17 17:39] LABS: Glucose Point of Care 233 mg/dL (70-110)
[2022-01-17 18:00] VITALS: BP 92/42; PULSE 72; RESP 16; TEMP 37.5; O2SAT 97
--- NOTE | 2022-01-17 18:22 | ED_ITS ---
HPI - General Adult General: Chief complaint: COVID symptoms Stated complaint: cough, fever, ams Time Seen by Provider: 01/17/22 17:42 History of Present Illness: Patient is a 81-year-old male with a history of diabetes, myasthenia gravis who presents the emergency room for evaluation of nonproductive cough, fever and chills and respiratory distress this morning. Patient woke up this morning feeling chills since then has not been feeling well. Patient reports shortness of breath and nonproductive cough. Patient denies any history of COPD or asthma does not require oxygen at baseline. Denies any history of smoking. Patient denies any associate chest pain, nausea/vomiting, diarrhea melena hematochezia. Patient denies any urinary complaints Onset: earlier today Duration:ongoing Location:home Severity:moderate Associated symptoms: Reports dyspnea and malaise; Deny chest pain, nausea, rash, palpitations or vomiting Review of Systems Const: Reports: fever(s), chills, fatigue and malaise Eyes: Denies: change in vision ENMT: Denies: mouth pain Card: Denies: chest pain or palpitations Resp: Reports: dyspnea and non-productive cough GI: Denies: abdominal pain, nausea, vomiting or diarrhea : Denies: dysuria Musc: Denies: extremity pain Skin/Breast: Denies: rash or new lesions Neuro: Denies: weakness in extremities Psych: Reports: other (Normal mood) Eddie/Lymph: Denies: easy bruising PFSH ED PFSH: Medical History Diabetes mellitus Hematuria Myasthenia gravis Surgical History Hx of appendectomy Hx of cholecystectomy Family History Father , AT 73 Heart disease Mother , AT 64 Diabetes Social History Smoking and tobacco status: never smoked Alcohol intake: never Marital status: Current occupational status: retired and disabled History of recent travel: No Physical Exam Const: COMMON NORMALS: alert HENMT: COMMON NORMALS: atraumatic HEAD & SCALP: atraumatic MOUTH: moist mucous membranes not abnormal Eye: COMMON NORMALS: EOMs intact bilaterally and conjunctivae normal CONJUNCTIVA: Yes conjunctivae normal Neck/C-Spine: COMMON NORMALS: full ROM and supple Resp: COMMON NORMALS: normal respiratory effort and clear to auscultation bilaterally AUSCULTATION: clear to auscultation bilaterally Cardio: COMMON NORMALS: regular rate RATE: regular rate GI: COMMON NORMALS: Soft to palpation and non-tender PALPATION: Yes Soft to palpation Extremity: COMMON NORMALS: full ROM Neuro: SENSORIUM/ORIENTATION: Yes alert MOTOR EXAM: No Abnormal motor strength present and Other motor observations present (no focal motor deficits) Psych: COMMON NORMALS: speech normal SPEECH: Yes normal speech MOOD & AFFECT: Yes euthymic mood Course Vital Signs: Vital signs: Vital Signs Temperature 99.5 F 01/17/22 18:00 Pulse Rate 67 01/17/22 19:26 Respiratory Rate 19 H 01/17/22 19:26 Blood Pressure 95/52 01/17/22 19:26 Pulse Oximetry 95 01/17/22 19:26 [facility] - General Adult Medical Decision Making 81-year-old male with history of diabetes, myasthenia gravis presenting to the emergency room with dyspnea, generalized weakness, cough, and fatigue since this morning. On arrival, patient is afebrile in ER. O2 sats greater 96% on room air. Patient is noted to have white count 21 0.3. X-ray chest negative for any pneumonia. Pro-Gabe appears to be elevated. COVID PCR is negative. At this time, it is presumed that patient may have pneumonia. Patient received ceftriaxone azithromycin. Patient will be admitted to the hospital for further evaluation. Disposition: admission Lab Data : 01/17/22 14:20 01/17/22 14:20 Radiology Impressions Chest X-Ray 01/17/22 13:01 IMPRESSION: No acute findings. Laboratory Results WBC 21.3 10^3/uL (4.0-10.0) H 01/17/22 14:20 RBC 5.17 10^6/uL (4.1-5.3) 01/17/22 14:20 Hgb 15.8 g/dL (11.7-16.6) 01/17/22 14:20 Hct 45.9 % (42.0-52.0) 01/17/22 14:20 MCV 88.8 fl (80-94) 01/17/22 14:20 MCH 30.6 pg (28.0-34.0) 01/17/22 14:20 MCHC 34.4 g/dL (30.0-36.0) 01/17/22 14:20 RDW 13.3 % (12.1-15.1) 01/17/22 14:20 Plt Count 239 10^3/cmm (130-400) 01/17/22 14:20 MPV 10.0 fL (7.4-10.4) 01/17/22 14:20 Neut % (Auto) 84.2 % 01/17/22 14:20 Lymph % (Auto) 5.8 % 01/17/22 14:20 [place] % (Auto) 7.6 % 01/17/22 14:20 Eos % (Auto) 0.6 % 01/17/22 14:20 Baso % (Auto) 0.6 % 01/17/22 14:20 Neut # (Auto) 17.95 10^3/uL (1.8-7.7) H 01/17/22 14:20 Lymph # (Auto) 1.2 10^3/uL (0.8-4.8) 01/17/22 14:20 [place] # (Auto) 1.6 10^3/uL (0.2-0.9) H 01/17/22 14:20 Eos # (Auto) 0.1 10^3/uL (0.0-0.8) 01/17/22 14:20 Baso # (Auto) 0.1 10^3/uL (0.0-0.1) 01/17/22 14:20 Nucleated RBC % (auto) 0 % 01/17/22 14:20 Nucleated RBCs # 0.0 /100WBC 01/17/22 14:20 Sodium 138 mmol/L (136-145) 01/17/22 14:20 Potassium 4.2 mmol/L (3.5-5.1) 01/17/22 14:20 Chloride 99 mmol/L (98-107) 01/17/22 14:20 Carbon Dioxide 29 mmol/L (22-29) 01/17/22 14:20 Anion Gap 14.2 (5-19) 01/17/22 14:20 BUN 25 mg/dL (8-23) H 01/17/22 14:20 Creatinine 1.1 mg/dL (0.7-1.2) 01/17/22 14:20 GFR Calculation Not Reportable 01/17/22 14:20 Glucose 99 mg/dL (65-115) 01/17/22 14:20 POC Glucose 233 mg/dL (70-110) H 01/17/22 17:37 Calculated Osmolality 290 mOsm/kg (285-295) 01/17/22 14:20 Lactic Acid 2.2 mmol/L (0.5-2.2) 01/17/22 14:20 Lactic Acid (Sepsis) 3.0 mmol/L (0.5-2.2) H 01/17/22 17:42 Calcium 9.3 mg/dL (8.5-10.5) 01/17/22 14:20 Total Bilirubin 0.6 mg/dL (0.15-1.2) 01/17/22 14:20 AST 39 U/L (0-40) 01/17/22 14:20 ALT 49 U/L (0-41) H 01/17/22 14:20 Alkaline Phosphatase 80 IU/L (40-130) 01/17/22 14:20 Total Protein 7.0 g/dL (6.6-8.7) 01/17/22 14:20 Albumin 3.8 g/dL (3.5-5.2) 01/17/22 14:20 Globulin 3.2 g/dL (1.3-4.6) 01/17/22 14:20 Procalcitonin 1.91 ng/mL (0-0.5) H 01/17/22 14:20 Urine Color Yellow (Yellow) 01/17/22 14:12 Urine Appearance Clear (CLEAR) 01/17/22 14:12 Urine pH 5 (5-7) 01/17/22 14:12 Ur Specific [place] 1.010 (1.005-1.030) 01/17/22 14:12 Urine Protein Neg (Negative) 01/17/22 14:12 Urine Glucose (UA) Norm (Normal) 01/17/22 14:12 Urine Ketones Negative (Negative) 01/17/22 14:12 Urine Blood Neg (Negative) 01/17/22 14:12 Urine Nitrate Negative (Negative) 01/17/22 14:12 Urine Bilirubin Neg (Negative) 01/17/22 14:12 Urine Urobilinogen Norm mg/dL (Negative) 01/17/22 14:12 Ur Leukocyte Esterase Negative (Negative) 01/17/22 14:12 Coronavirus 229E (PCR) Not detected (NOT DETECT) 01/17/22 13:00 Influenza Type A Ag Negative (Negative) 01/17/22 13:00 Influenza Type B Ag Negative (Negative) 01/17/22 13:00 SARS-CoV-2 (PCR) Not detected (NOT DETECT) 01/17/22 13:00 Imaging Data Other Imaging: Radiologist's impression: [address] [id number] XRay Report Signed Patient: Willam Christina Unit #: [id number] : 1940 Age/Sex: 81 / M ADM Date: 01/17/22 Loc: ER Room/Bed: Attending Dr: Ordering Provider/Ordering MD: Maxim Louis DO Date of Service: 01/17/22 Procedure(s): XR chest 1V portable [id number] Accession Number(s): [id number] Report Number: [id number] PROCEDURE INFORMATION: Exam: XR Chest Exam date and time: 01/17/2022 2:21 PM Age: 81 years old Clinical indication: Shortness of breath; Prior surgery; Surgery type: Gallbladder, appendix TECHNIQUE: Imaging protocol: Radiologic exam of the chest. Views: 1 view. COMPARISON: CR (CHEST, ) 12/30/2021 7:33 PM FINDINGS: Lungs: Unremarkable. No consolidation. Pleural spaces: Unremarkable. No pleural effusion. No pneumothorax. Heart/Mediastinum: Unremarkable. No cardiomegaly. Bones/joints: Unremarkable. XR/XR chest 1V portable [id number] IMPRESSION: No acute findings. ? Dictated By: Willam Vides MD Signed By: Willam Vides MD Signed Date/Time: 01/17/22 1443 DD/ 1421 Discharge Plan Discharge Patient Disposition: Admitted As Inpatient Clinical Impression: Dyspnea, Fever, Cough Condition: Stable Coding Level of Care Code ED Application Development Consultant for Chg Fwd Exam Comprehensive
[2022-01-17 18:25] VITALS: O2SAT 97
[2022-01-17] MEDS: cefTRIAXone 1,000 MG in sodium chloride 0.9% (plus) 50 ML 100 MG IV (18:56)
[2022-01-17] MEDS: sodium chloride 0.9% 500 ML IV (18:57)
[2022-01-17 19:26] VITALS: BP 95/52; PULSE 67; RESP 19; O2SAT 95
[2022-01-17] MEDS: azithromycin 500 MG in sodium chloride 0.9% 250 ML 250 MG IV (19:47)
[2022-01-17 20:30] VITALS: BP 135/61; PULSE 68; RESP 16; O2SAT 95
--- NOTE | 2022-01-17 20:31 | PM.HP ---
Providers/Chief Complaint Chief Complaint: cough, fever, ams History of Present Illness Very pleasant 81-year-old gentleman with history of myasthenia gravis, history of colitis, diabetes, with peritoneal disease, presented to the hospital due to fever at home 102 Fahrenheit, malaise, body aches. In ER noted with leukocytosis 21.3, mostly neutrophilic. She reports having some mild dry cough (although he states it is chronic for years) although this is mostly chronic, and so in ER was thought to be possibly developing pneumonia, PCR viral studies negative for coronavirus, negative influenza antigen. Chest x-ray without acute findings. Urinalysis without acute findings. As per discussion with his family they also note that he had had multiple sessions of dental work done, several months ago he had very deep cleaning done, and 2 weeks ago he had a posterior right lower molar grounded down in preparation for a crown. It appears that despite quite tooth decay, plans were to try to salvage the teeth he has instead of getting them extracted. He had an additional dental examination yesterday, pending additional evaluation due to chronic soreness in his mouth to the point that he has difficulty chewing anything, and family states that plans have been for him to be referred for a gum biopsy. In addition, he states that he was scheduled for tomorrow to have a procedure to dilate his throat due to difficulties with swallowing secondary to myasthenia gravis. He states that intermittently food will come up after eating at. Family state he occasionally coughs with drinking water. He tells me he has to cut down his food into quite small pieces. Review of Systems Const: Reports: fever(s), chills, body aches and malaise Eyes: Denies: change in vision, eye discomfort or eye redness ENMT: Reports: mouth pain and dental pain; Denies: throat pain or ear or mastoid pain Card: Denies: chest pain, edema, pre-syncope or dyspnea on exertion Resp: Denies: dyspnea, productive cough, change in phlegm color or hemoptysis GI: Denies: abdominal pain, nausea, vomiting, diarrhea, constipation, hematochezia or melena : Denies: flank pain, difficulty urinating, urinary frequency or hematuria Musc: Denies: back pain, joint swelling or joint redness Skin/Breast: Denies: rash or new lesions Neuro: Denies: headache(s), numbness in extremities, weakness in extremities, dizziness, confusion or seizure-like activity Endo: Denies: polyuria or polydipsia Eddie/Lymph: Denies: easy bleeding or tender lymph nodes All/Imm: Denies: urticaria or tongue swelling Medications/Allergies Home Medications Medication Instructions Recorded Confirmed Last Taken Type acyclovir 200 mg capsule 200 mg PO DAILY cap 09/02/21 01/17/22 01/17/22 History carvedilol 6.25 mg tablet 6.25 mg PO BID 09/02/21 01/17/22 01/17/22 History docusate sodium 100 mg capsule 100 mg PO DAILY 09/02/21 01/17/22 01/17/22 History insulin aspart U-100 100 unit/mL 10 unit SUBCUT TID 09/02/21 01/17/22 01/17/22 History subcutaneous solution (Novolog U-100 Insulin aspart) insulin detemir U-100 100 unit/mL 18 unit SUBCUT DAILY 09/02/21 01/17/22 01/17/22 History (3 mL) subcutaneous pen (Levemir FlexTouch U-100 Insulin) multivitamin 1 tab PO DAILY 09/02/21 01/17/22 01/17/22 History pantoprazole 40 mg tablet,delayed 40 mg PO DAILY 09/02/21 01/17/22 01/17/22 History release pyridostigmine bromide 60 mg tablet 60 mg PO TID 09/02/21 01/17/22 Unknown History ramipril 5 mg capsule 5 mg PO DAILY 09/02/21 01/17/22 01/17/22 History rivaroxaban 20 mg tablet 20 mg PO DAILY 09/02/21 01/17/22 01/17/22 History simvastatin 40 mg tablet 40 mg PO DAILY 09/02/21 01/17/22 01/17/22 History acetaminophen 325 mg capsule 325 mg PO QID PRN 01/17/22 01/17/22 01/17/22 History (Tylenol) Allergies Allergy/AdvReac Type Severity Reaction Status Date / Time Penicillins Allergy ALGY-Hives Verified 01/17/22 19:13 PFSH Acute PFSH: Medical History (Updated 01/17/22 @ 20:35 by Jeanmarie Wilder MD) C. difficile colitis Diabetes mellitus Dysphagia Hematuria Myasthenia gravis Periodontal disease Tooth decay Surgical History Hx of appendectomy Hx of cholecystectomy Family History Father , AT 73 Heart disease Mother , AT 64 Diabetes Social History Smoking and tobacco status: never smoked Alcohol intake: never Marital status: Current occupational status: retired and disabled History of recent travel: No Vitals/I&O/Wt Last Vital Signs Temp 99.5 F 01/17/22 18:00 Pulse 67 01/17/22 19:26 Resp 19 H 01/17/22 19:26 BP 95/52 01/17/22 19:26 Pulse Ox 95 01/17/22 19:26 Weight last 48 hrs Weight 63.503 kg Physical Exam Narrative: Accompanied by family by the bedside Const: COMMON NORMALS: alert GENERAL APPEARANCE: cooperative ORIENTATION/CONSCIOUSNESS: Yes awake HENMT: COMMON NORMALS: normocephalic, EAC's normal, Normal external nose present and moist oral mucous membranes HEAD & SCALP: normocephalic NOSE: Normal external nose present EXTERNAL AUDITORY CANAL: EAC's normal TEETH & GINGIVA: Yes abnormal tooth and associated gingiva, Yes caries, Yes poor dentition, Yes teeth discoloration and Yes other (periodontitis) Neck/C-Spine: COMMON NORMALS: no meningeal signs Chest: CHEST: Yes Symmetrical chest wall rise Resp: COMMON NORMALS: clear to auscultation bilaterally AUSCULTATION: clear to auscultation bilaterally Cardio: COMMON NORMALS: regular rate, regular rhythm and No murmurs present (Cardio) RATE: regular rate RHYTHM: regular rhythm GI: COMMON NORMALS: Normal to inspection, nondistended, normoactive bowel sounds present, Soft to palpation and non-tender PALPATION: Yes Soft to palpation Extremity: COMMON NORMALS: no pedal edema Neuro: COMMON NORMALS: moves all extremities SENSORIUM/ORIENTATION: Yes alert MENINGEAL SIGNS: Yes no meningeal signs Psych: COMMON NORMALS: mental status grossly normal Skin: COMMON NORMALS: no wounds RASHES: no rashes Data : 01/17/22 14:20 07/19/22 14:20 Micro: Microbiology 01/17/22 17:42 Blood Culture - Preliminary Blood SPECIMEN COLLECTED 01/17/22 17:42 Blood Culture - Preliminary Blood SPECIMEN COLLECTED A&P Assessment and plan (1) Fever: With significant tooth decay, peritonitis, and after multiple dental procedures. He does have dry cough, and so initially thought was possibly developing pneumonia and discussed with his family as well, however, I discussed also higher suspicion that peridental disease is causing his fever, possible sepsis. With multiple dental procedures recently, concern may also be regarding possibility of bacteremia, transient, or consideration may need to be also given to possibility of endocarditis. Blood cultures were collected. Empiric antibiotics at this time. Was started on ceftriaxone and azithromycin, will add Flagyl. Follow blood cultures. Consider repeat cultures in case of persistent symptoms or positive cultures. At the moment I do not see stigmata of embolic disease, however, continue reevaluation with this in mind. We will also repeat chest x-ray tomorrow, as he does also have risk of aspiration, has dysphagia, family reports occasional cough with water. Chest x-ray currently is unremarkable, less likely pneumonia/aspiration pneumonia. Follow-up chest x-ray. ST evaluation. He states also pending balloon dilation (unclear if esophageal or other), due to intermittent food regurgitation. Possible sepsis with leukocytosis 21.3, fever 102 Fahrenheit, lactic acid elevation of 3. Blood cultures collected. Antibiotics as above. Received partial IV hydration with 500 now NS bolus. Will give additional liter. I see that he is just coming off steroids as well after a Solu-Medrol course, and with myasthenia gravis, due to concern for possible adrenal sufficiency, will hold for now provide coverage with hydrocortisone as well. May need a taper. Status: Acute (2) Periodontal disease: Discussed with him and his family, I am not a dentist, but with significant tooth decay, periductal disease, fever, history of C. difficile, it may not be worth trying to save the decaying teeth and consider rather proceeding with extraction especially if there is risk that he may need additional course of antibiotics, risk of recurrence of C. difficile. Status: Acute (3) Tooth decay: Status: Acute (4) Dysphagia: ST evaluation. Dysphagia diet. Reports has a pending scheduled balloon dilation (possibly esophageal) procedure. Status: Acute (5) Cough: Mild dry cough currently. Possibility of aspiration discussed. Although he does report some chronicity of this cough over the last years. Status: Acute Plan Myasthenia gravis History of C. difficile Penicillin allergy: Discussed with him and family to discuss further with primary provider consideration of penicillin allergy testing. Attestations Medical Necessity Statement*: Admission of over 2 midnights is anticipated for fever, possible sepsis, with lactic acidosis, not a clear source, possible dental source, with possible bacteremia after recent dental procedures. Possible pneumonia. 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
[2022-01-17] MEDS: hydrocortisone 100 mg/2 mL SDV 50 MG IVP (22:10)
[2022-01-17] MEDS: sodium chloride 0.9% 1,000 ML 999 ML IV (22:10)
[2022-01-17 22:47] VITALS: BP 145/67; PULSE 86; RESP 16; TEMP 37.2; O2SAT 98
[2022-01-18] VITALS (8 sets, daily range): BP systolic 104–148; BP diastolic 45–62; PULSE 43–81; RESP 16–22; TEMP 36.8–37.4; O2SAT 94–99
[2022-01-18 00:18] LABS: Glucose Point of Care 213 mg/dL (70-110)
[2022-01-18] MEDS: insulin lispro 100 unit/1 mL SUBCUT ×4 (00:25→21:11)
[2022-01-18] MEDS: pyridostigmine 60 mg Tablet PO ×4 (00:26→20:44)
[2022-01-18] MEDS: metroNIDAZOLE IV 500 MG/100 ML PREMIX 100 MG IV ×4 (00:26→23:37)
[2022-01-18 07:48] LABS: Glucose Point of Care 141 mg/dL (70-110)
[2022-01-18] MEDS: lisinopril 10 mg Tablet PO (09:51)
[2022-01-18] MEDS: docusate sodium 100 mg Capsule PO (09:51)
[2022-01-18] MEDS: atorvastatin 40 mg Tablet 20 MG PO (09:51)
[2022-01-18] MEDS: pantoprazole DR 40 mg Tablet PO (09:51)
[2022-01-18] MEDS: rivaroxaban 10 mg Tablet 20 MG PO (09:51)
[2022-01-18] MEDS: acyclovir 400 mg Tablet 200 MG PO (09:52)
[2022-01-18] MEDS: hydrocortisone 100 mg/2 mL SDV 50 MG IVP ×2 (09:54→22:11)
[2022-01-18 10:16] LABS: Basophils # 0.1 10^3/uL (0.0-0.1); Basophils % 0.5 %; Eosinophils # 0.1 10^3/uL (0.0-0.8); Eosinophils % 0.8 %; Hematocrit 41.5 % (42.0-52.0); Hemoglobin 14.3 g/dL (11.7-16.6); Lymphocytes # 1.9 10^3/uL (0.8-4.8); Lymphocytes % 13.3 %; Mean Corpuscular HGB Conc 34.5 g/dL (30.0-36.0); Mean Corpuscular Hemoglobin 30.6 pg (28.0-34.0); Mean Corpuscular Volume 88.9 fl (80-94); Mean Platelet Volume 10.2 fL (7.4-10.4); Monocytes # 1.2 10^3/uL (0.2-0.9); Monocytes % 8.3 %; Neutrophils # 11.06 10^3/uL (1.8-7.7); Neutrophils % 76.7 %; Nucleated Red Blood Cells % 0 %; Platelet Count 185 10^3/cmm (130-400); Red Blood Count 4.67 10^6/uL (4.1-5.3); Red Cell Distribution Width 13.4 % (12.1-15.1); White Blood Count 14.4 10^3/uL (4.0-10.0)
[2022-01-18 10:54] LABS: Alanine Aminotransferase 40 U/L (0-41); Albumin Level 3.5 g/dL (3.5-5.2); Alkaline Phosphatase 77 IU/L (40-130); Aspartate Amino Transferase 28 U/L (0-40); Blood Urea Nitrogen 18 mg/dL (8-23); Calcium 8.5 mg/dL (8.5-10.5); Carbon Dioxide 27 mmol/L (22-29); Chloride 100 mmol/L (98-107); Globulin 2.2 g/dL (1.3-4.6); Glucose 137 mg/dL (65-115); Osmolality Calculated 286 mOsm/kg (285-295); Sodium 136 mmol/L (136-145); Total Bilirubin 0.7 mg/dL (0.15-1.2); Total Protein 5.7 g/dL (6.6-8.7)
[2022-01-18 11:38] LABS: Glucose Point of Care 258 mg/dL (70-110)
[2022-01-18 16:32] LABS: Glucose Point of Care 205 mg/dL (70-110)
[2022-01-18] MEDS: cefTRIAXone 2,000 MG in sodium chloride 0.9% (plus) 50 ML 100 MG IV (17:51)
--- NOTE | 2022-01-18 19:37 | P.PN_ITS ---
Subjective Subjective: Patient was seen and examined this morning, has remained afebrile, saturating well on room air, has longstanding persistent cough, He was able to tolerate diet, continue to be empirically on antibiotics, his other vitals and labs have been reviewed. Medications: Medication Review Details: Generic Name Dose Route Start Last Admin Trade Name Viviana PRN Reason Stop Dose Admin Acyclovir 200 mg 01/18/22 09:00 01/18/22 09:52 Acyclovir 400 Mg Tablet PO 200 mg DAILY BING Administration Atorvastatin Calci um 20 mg 01/18/22 09:00 01/18/22 09:51 Atorvastatin 40 Mg Tablet PO 20 mg DAILY BING Administration Carvedilol 6.25 mg 01/18/22 09:00 01/18/22 17:19 Carvedilol 6.25 Mg Tablet PO Not Given BID BING Docusate Sodium 100 mg 01/18/22 09:00 01/18/22 09:51 Docusate Sodium 100 Mg Capsule PO 100 mg DAILY BING Administration Hydrocortisone Sod ium Succinate 50 mg 01/17/22 21:15 01/18/22 09:54 Hydrocortisone 1 00 Mg/2 Ml Sdv IVP 50 mg Q12H BING Administration Ceftriaxone Sodium 2,000 mg/ 50 mls @ 100 mls/ hr 01/18/22 18:00 01/18/22 19:33 Sodium Chloride IV Infused Q24H BING Infusion Protocol Metronidazole 500 mg in 100 mls @ 100 mls/hr 01/17/22 23:24 01/18/22 19:33 Flagyl Iv IV Infused Q8H BING Infusion Protocol Insulin Human Lisp ro 0 unit 01/17/22 23:24 01/18/22 18:15 Insulin Lispro 1 00 Unit/1 Ml SUBCUT 4 unit WM&BEDTIME BING Administration Protocol Lisinopril 10 mg 01/18/22 09:00 01/18/22 09:51 Lisinopril 10 Mg Tablet PO 10 mg DAILY BING Administration Pantoprazole Sodiu m 40 mg 01/18/22 09:00 01/18/22 09:[address] 40 Mg Tablet PO 40 mg DAILY BING Administration Pyridostigmine Bro mide 60 mg 01/17/22 23:24 01/18/22 15:52 Pyridostigmine 6 0 Mg Tablet PO 60 mg TID BING Administration Rivaroxaban 20 mg 01/18/22 09:00 01/18/22 09:51 Rivaroxaban 10 M g Tablet PO 20 mg DAILY BING Administration Vitals/I&O/Wt Last Vital Signs Temp 99.3 F 01/18/22 15:23 Pulse 81 01/18/22 15:23 Resp 17 01/18/22 15:23 BP 104/45 01/18/22 15:23 Pulse Ox 96 01/18/22 15:23 01/18/22 01/18/22 01/18/22 06:59 14:59 22:59 Intake Total 100 / 100 100 / 100 390 / 490 Output Total 400 / 400 Balance 100 / 100 100 / 100 -10 / 90 Weight last 48 hrs Weight 67.784 kg Weight 63.503 kg Physical Exam Const: COMMON NORMALS: patient oriented x3 HENMT: COMMON NORMALS: normocephalic and atraumatic HEAD & SCALP: normocephalic and atraumatic Resp: COMMON NORMALS: clear to auscultation bilaterally EFFORT & INSPECTION: Yes symmetric chest movement AUSCULTATION: clear to auscultation bilaterally Cardio: COMMON NORMALS: regular rate, regular rhythm, S1 normal heart sound present, S2 normal heart sound present, No gallops present (Cardio), No murmurs present (Cardio), No rub (Cardio) and Peripheral pulses 2+ throughout RATE: regular rate RHYTHM: regular rhythm HEART SOUNDS: S1 normal heart sound present and S2 normal heart sound present PERIPHERAL PULSES: Peripheral puls es 2+ throughout GI: COMMON NORMALS: Normal to inspection, nondistended, normoactive bowel sounds present, Soft to palpation, non-tender, No hepatosplenomegaly present and no masses AUSCULTATION: Yes normoactive bowel sounds PALPATION: Yes Soft to palpation and Yes No hepatosplenomegaly present RECTAL EXAM: Yes deferred Extremity: COMMON NORMALS: no clubbing, cyanosis or edema and no pedal edema Neuro: COMMON NORMALS: patient oriented x3 Data : 01/18/22 09:52 01/18/22 09:52 Micro: Microbiology 01/17/22 17:42 Blood Culture - Preliminary Blood NEGATIVE TO DATE 01/17/22 17:42 Blood Culture - Preliminary Blood NEGATIVE TO DATE A&P Assessment and plan (1) Fever: With significant tooth decay, peritonitis, and after multiple dental procedures. He does have dry cough, and so initially thought was possibly developing pneumonia and discussed with his family as well, however, I discussed also higher suspicion that peridental disease is causing his fever, possible sepsis. With multiple dental procedures recently, concern may also be regarding possibility of bacteremia, transient, or consideration may need to be also given to possibility of endocarditis. Blood cultures were collected. Empiric antibiotics at this time. Was started on ceftriaxone and azithromycin, will add Flagyl. Follow blood cultures. Consider repeat cultures in case of persistent symptoms or positive cultures. At the moment I do not see stigmata of embolic disease, however, continue reevaluation with this in mind. We will also repeat chest x-ray tomorrow, as he does also have risk of aspiration, has dysphagia, family reports occasional cough with water. Chest x- ray currently is unremarkable, less likely pneumonia/aspiration pneumonia. Follow-up chest x-ray. ST evaluation. He states also pending balloon dilation (unclear if esophageal or other), due to intermittent food regurgitation. Possible sepsis with leukocytosis 21.3, fever 102 Fahrenheit, lactic acid elevation of 3. Blood cultures collected. Antibiotics as above. Received partial IV hydration with 500 now NS bolus. Will give additional liter. I see that he is just coming off steroids as well after a Solu-Medrol course, and with myasthenia gravis, due to concern for possible adrenal sufficiency, will hold for now provide coverage with hydrocortisone as well. May need a taper. Status: Acute (2) Periodontal disease: Discussed with him and his family, I am not a dentist, but with significant tooth decay, periductal disease, fever, history of C. difficile, it may not be worth trying to save the decaying teeth and consider rather proceeding with extraction especially if there is risk that he may need additional course of antibiotics, risk of recurrence of C. difficile. Status: Acute (3) Tooth decay: Status: Acute (4) Dysphagia: ST evaluation. Dysphagia diet. Reports has a pending scheduled balloon dilation (possibly esophageal) procedure. Status: Acute (5) Cough: Mild dry cough currently. Possibility of aspiration discussed. Although he does report some chronicity of this cough over the last years. Status: Acute Plan Myasthenia gravis History of C. difficile Penicillin allergy: Discussed with him and family to discuss further with primary provider consideration of penicillin allergy testing. Attestations Medical Necessity Statement*: Patient needs to be in hospital for management of fever, empiric need for IV antibiotics, pending cultures. 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
--- NOTE | 2022-01-18 20:21 | PC.NURSE ---
i reported low pulse 54 to nurse
[2022-01-18] MEDS: azithromycin 500 MG in sodium chloride 0.9% 250 ML 250 MG IV (20:43)
[2022-01-18 20:57] LABS: Glucose Point of Care 252 mg/dL (70-110)
[2022-01-19] VITALS (9 sets, daily range): BP systolic 111–157; BP diastolic 59–67; PULSE 40–70; RESP 16–18; TEMP 36.4–36.7; O2SAT 97–99
--- NOTE | 2022-01-19 00:27 | PC.NURSE ---
i reported pulse rate 59 to nurse
--- NOTE | 2022-01-19 05:59 | PC.NURSE ---
i reported low pulse 44 to nurse
[2022-01-19 06:20] LABS: Glucose Point of Care 125 mg/dL (70-110)
[2022-01-19 06:26] LABS: Basophils % 0.4 %; Eosinophils % 0.4 %; Hematocrit 39.1 % (42.0-52.0); Hemoglobin 12.6 g/dL (11.7-16.6); Lymphocytes # 1.6 10^3/uL (0.8-4.8); Lymphocytes % 13.8 %; Mean Corpuscular HGB Conc 32.2 g/dL (30.0-36.0); Mean Corpuscular Volume 93.1 fl (80-94); Mean Platelet Volume 10.1 fL (7.4-10.4); Monocytes # 0.8 10^3/uL (0.2-0.9); Monocytes % 7.2 %; Neutrophils # 8.75 10^3/uL (1.8-7.7); Neutrophils % 77.5 %; Nucleated Red Blood Cells % 0 %; Platelet Count 170 10^3/cmm (130-400); Red Cell Distribution Width 13.5 % (12.1-15.1); White Blood Count 11.3 10^3/uL (4.0-10.0)
[2022-01-19 06:49] LABS: Alanine Aminotransferase 29 U/L (0-41); Albumin Level 2.9 g/dL (3.5-5.2); Alkaline Phosphatase 65 IU/L (40-130); Anion Gap 11.5 (5-19); Aspartate Amino Transferase 19 U/L (0-40); Blood Urea Nitrogen 17 mg/dL (8-23); Calcium 8.5 mg/dL (8.5-10.5); Carbon Dioxide 27 mmol/L (22-29); Chloride 108 mmol/L (98-107); Globulin 2.6 g/dL (1.3-4.6); Glucose 123 mg/dL (65-115); Osmolality Calculated 297 mOsm/kg (285-295); Potassium 4.5 mmol/L (3.5-5.1); Sodium 142 mmol/L (136-145); Total Bilirubin 0.3 mg/dL (0.15-1.2); Total Protein 5.5 g/dL (6.6-8.7)
[2022-01-19] MEDS: metroNIDAZOLE IV 500 MG/100 ML PREMIX 100 MG IV ×3 (06:49→22:51)
--- NOTE | 2022-01-19 08:35 | ECG_ITS ---
[facility] Test Date: 2022-01-19 Pat Name: Willam Christina Department: Room: 279 Gender: Male Lead Generation Specialist: : [id number] Requested By: Victor Hugo Devi Order Number: [id number] Story MD: Inge Holden M.D. Measurements Intervals [place] Rate: 43 P: 61 TN: 177 QRS: -45 QRSD: 169 T: -58 QT: 510 QTc: 435 Interpretive Statements SINUS BRADYCARDIA LEFT AXIS DEVIATION [QRS AXIS < -30] LEFT BUNDLE BRANCH BLOCK [120+ ms QRS DURATION, 80+ ms Q/S IN V1/V2, 85+ ms R IN I/aVL/V5/V6] No previous ECG available for comparison Electronically Signed On 01-19-2022 21:20:25 CDT by Inge Holden M.D. [id number]
--- NOTE | 2022-01-19 09:00 | XR_ITS ---
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 There wa s significant resolution with residual abnormalities in both lung bases on 01/17/2022. There has been further improvement in the lung opacities in the right lower lung and baseline may hav e been achieved. There continues to be reticular interstitial density in the left lower lung. There is questionable interval blunting of the right costophrenic angle which may indicate pleural fl uid accumulation. XR/XR chest 1V portable [id number] IMPRESSION: Continued resolving of lung abnormalities with residual in the left lower lung. Questionable interval right pleural fluid accumulation. If present, small volum e.
[2022-01-19] MEDS: atorvastatin 40 mg Tablet 20 MG PO (09:46)
[2022-01-19] MEDS: acyclovir 400 mg Tablet 200 MG PO (09:46)
[2022-01-19] MEDS: rivaroxaban 10 mg Tablet 20 MG PO (09:47)
[2022-01-19] MEDS: lisinopril 10 mg Tablet PO (09:47)
[2022-01-19] MEDS: pyridostigmine 60 mg Tablet PO ×3 (09:47→21:30)
[2022-01-19] MEDS: docusate sodium 100 mg Capsule PO (09:47)
[2022-01-19] MEDS: pantoprazole DR 40 mg Tablet PO (09:47)
[2022-01-19] MEDS: hydrocortisone 100 mg/2 mL SDV 50 MG IVP (09:48)
[2022-01-19 12:48] LABS: Glucose Point of Care 217 mg/dL (70-110)
[2022-01-19] MEDS: insulin lispro 100 unit/1 mL SUBCUT ×3 (12:50→21:31)
--- NOTE | 2022-01-19 13:53 | P.PN_ITS ---
Subjective Subjective: Patient was seen and examined this morning, has remained afebrile, telemetry monitoring has revealed persistent sinus bradycardia With heart rate dropping into 40s, but patient has remained asymptomatic, denied any chest pain shortness of breath dizziness, maintaining a good MAP, currently off carvedilol for the last 24 hours. Medications: Medication Review Details: Generic Name Dose Route Start Last Admin Trade Name Viviana PRN Reason Stop Dose Admin Acyclovir 200 mg 01/18/22 09:00 01/18/22 09:52 Acyclovir 400 Mg Tablet PO 200 mg DAILY BING Administration Atorvastatin Calci um 20 mg 01/18/22 09:00 01/18/22 09:51 Atorvastatin 40 Mg Tablet PO 20 mg DAILY BING Administration Carvedilol 6.25 mg 01/18/22 09:00 01/18/22 17:19 Carvedilol 6.25 Mg Tablet PO Not Given BID BING Docusate Sodium 100 mg 01/18/22 09:00 01/18/22 09:51 Docusate Sodium 100 Mg Capsule PO 100 mg DAILY BING Administration Hydrocortisone Sod ium Succinate 50 mg 01/17/22 21:15 01/18/22 09:54 Hydrocortisone 1 00 Mg/2 Ml Sdv IVP 50 mg Q12H BING Administration Ceftriaxone Sodium 2,000 mg/ 50 mls @ 100 mls/ hr 01/18/22 18:00 01/18/22 19:33 Sodium Chloride IV Infused Q24H BING Infusion Protocol Metronidazole 500 mg in 100 mls @ 100 mls/hr 01/17/22 23:24 01/18/22 19:33 Flagyl Iv IV Infused Q8H [facility] Infusion Protocol Insulin Human Lisp ro 0 unit 01/17/22 23:24 01/18/22 18:15 Insulin Lispro 1 00 Unit/1 Ml SUBCUT 4 unit WM&BEDTIME BING Administration Protocol Lisinopril 10 mg 01/18/22 09:00 01/18/22 09:51 Lisinopril 10 Mg Tablet PO 10 mg DAILY BING Administration Pantoprazole Sodiu m 40 mg 01/18/22 09:00 01/18/22 09:[address] 40 Mg Tablet PO 40 mg DAILY BING Administration Pyridostigmine Bro mide 60 mg 01/17/22 23:24 01/18/22 15:52 Pyridostigmine 6 0 Mg Tablet PO 60 mg TID BING Administration Rivaroxaban 20 mg 01/18/22 09:00 01/18/22 09:51 Rivaroxaban 10 M g Tablet PO 20 mg DAILY BING Administration Vitals/I&O/Wt Last Vital Signs Temp 98 F 01/19/22 08:00 Pulse 46 L 01/19/22 08:00 Resp 18 01/19/22 08:00 BP 150/67 01/19/22 08:00 Pulse Ox 98 01/19/22 08:00 01/18/22 01/19/22 01/19/22 22:59 06:59 14:59 Intake Total 640 / 740 100 / 840 Output Total 400 / 400 Balance 240 / 340 100 / 440 Weight last 48 hrs Weight 66.769 kg Weight 67.784 kg Physical Exam Const: COMMON NORMALS: patient oriented x3 HENMT: COMMON NORMALS: normocephalic and atraumatic HEAD & SCALP: normocephalic and atraumatic Resp: COMMON NORMALS: clear to auscultation bilaterally EFFORT & INSPECTION : Yes symmetric chest movement AUSCULTATION: clear to auscultation bilaterally Cardio: COMMON NORMALS: regular rate, regular rhythm, S1 normal heart sound present, S2 normal heart sound present, No gallops present (Cardio), No murmurs present (Cardio), No rub (Cardio) and Peripheral pulses 2+ throughout RATE: regular rate RHYTHM: regular rhythm HEART SOUNDS: S1 normal heart sound present and S2 normal heart sound present PERIPHERAL PULSES: Peripheral pulses 2+ throughout GI: COMMON NORMALS: Normal to inspection, nondistended, normoactive bowel sounds present, Soft to palpation, non-tender, No hepatosplenomegaly present and no masses AUSCULTATION: Yes normoactive bowel sounds PALPATION: Yes Soft to palpation and Yes No hepatosplenomegaly present RECTAL EXAM: Yes deferred Extremity: COMMON NORMALS: no clubbing, cyanosis or edema and no pedal edema Neuro: COMMON NORMALS: patient oriented x3 Data : 01/19/22 06:08 01/19/22 06:08 Micro: Microbiology 01/17/22 17:42 Blood Culture - Preliminary Blood NEGATIVE TO DATE 01/17/22 17:42 Blood Culture - Preliminary Blood NEGATIVE TO DATE A&P Assessment and plan (1) Fever: With significant tooth decay, peritonitis, and after multiple dental procedures. He does have dry cough, and so initially thought was possibly developing pneumonia and discussed with his family as well, however, I discussed also higher suspicion that peridental disease is causing his fever, possible sepsis. With multiple dental procedures recently, concern may also be regarding possibility of bacteremia, transient, or consideration may need to be also given to possibility of endocarditis. Blood cultures were collected. Empiric antibiotics at this time. Was started on ceftriaxone and azithromycin, will add Flagyl. Follow blood cultures. Consider repeat cultures in case of persistent symptoms or positive cultures. At the moment I do not see stigmata of embolic disease, however, continue reevaluation with this in mind. We will also repeat chest x-ray tomorrow, as he does also have risk of aspiration, has dysphagia, family reports occasional cough with water. Chest x- ray currently is unremarkable, less likely pneumonia/aspiration pneumonia. Follow-up chest x-ray. ST evaluation. He states also pending balloon dilation (unclear if esophageal or other), due to intermittent food regurgitation. Possible sepsis with leukocytosis 21.3, fever 102 Fahrenheit, lactic acid elevation of 3. Blood cultures collected. Antibiotics as above. Received partial IV hydration with 500 now NS bolus. Will give additional liter. I see that he is just coming off steroids as well after a Solu-Medrol course, and with myasthenia gravis, due to concern for possible adrenal sufficiency, will hold for now provide coverage with hydrocortisone as well. May need a taper. Status: Acute (2) Periodontal disease: Discussed with him and his family, I am not a dentist, but with significant tooth decay, periductal disease, fever, history of C. difficile, it may not be worth trying to save the decaying teeth and consider rather proceeding with extraction especially if there is risk that he may need additional course of antibiotics, risk of recurrence of C. difficile. Status: Acute (3) Tooth decay: Status: Acute (4) Dysphagia: ST evaluation. Dysphagia diet. Reports has a pending scheduled balloon dilation (possibly esophageal) procedure. Status: Acute (5) Cough: Mild dry cough currently. Possibility of aspiration discussed. Although he does report some chronicity of this cough over the last years. Status: Acute (6) Sinus bradycardia: Status: Acute Plan Myasthenia gravis History of C. difficile Penicillin allergy: Discussed with him and family to discuss further with primary provider consideration of penicillin allergy testing. Attestations Medical Necessity Statement*: Patient needs to be in hospital for evaluation of fever. Coding Level of Care Code Acute Cleaner Laboratory Equipment for g Fwd Exam Detailed Diagnoses Fever R50.9 Periodontal disease K05.6 Tooth decay K02.9 Dysphagia R13.10 Cough R05.9 Sinus bradycardia R00.1
[2022-01-19 18:02] LABS: Glucose Point of Care 201 mg/dL (70-110)
[2022-01-19] MEDS: cefTRIAXone 2,000 MG in sodium chloride 0.9% (plus) 50 ML 100 MG IV (18:25)
[2022-01-19 20:49] LABS: Glucose Point of Care 224 mg/dL (70-110)
--- NOTE | 2022-01-19 21:28 | PC.NURSE ---
i reported low pulse 54 to nurse
[2022-01-19] MEDS: azithromycin 500 MG in sodium chloride 0.9% 250 ML 250 MG IV (21:30)
[2022-01-20 03:53] VITALS: BP 113/71; PULSE 54; RESP 15; TEMP 36.8; O2SAT 96
[2022-01-20 06:00] VITALS: PULSE 70
[2022-01-20 06:12] LABS: Basophils # 0.1 10^3/uL (0.0-0.1); Basophils % 0.6 %; Eosinophils # 0.3 10^3/uL (0.0-0.8); Eosinophils % 2.5 %; Hematocrit 39.6 % (42.0-52.0); Hemoglobin 13.3 g/dL (11.7-16.6); Lymphocytes % 23.4 %; Mean Corpuscular HGB Conc 33.6 g/dL (30.0-36.0); Mean Corpuscular Hemoglobin 30.4 pg (28.0-34.0); Mean Corpuscular Volume 90.4 fl (80-94); Mean Platelet Volume 10.2 fL (7.4-10.4); Monocytes # 1.3 10^3/uL (0.2-0.9); Monocytes % 9.7 %; Neutrophils # 8.17 10^3/uL (1.8-7.7); Neutrophils % 63.2 %; Nucleated Red Blood Cells % 0 %; Platelet Count 142 10^3/cmm (130-400); Red Blood Count 4.38 10^6/uL (4.1-5.3); Red Cell Distribution Width 13.5 % (12.1-15.1); White Blood Count 12.9 10^3/uL (4.0-10.0)
--- NOTE | 2022-01-20 07:00 | PC.NURSE ---
Blood sugar 50. pt is provided w/ OJ. pt is alert, oriented.
[2022-01-20 08:00] VITALS: BP 148/71; PULSE 62; RESP 14; TEMP 36.6; O2SAT 98
[2022-01-20] MEDS: metroNIDAZOLE IV 500 MG/100 ML PREMIX 100 MG IV (08:18)
[2022-01-20] MEDS: rivaroxaban 10 mg Tablet 20 MG PO (08:18)
[2022-01-20] MEDS: docusate sodium 100 mg Capsule PO (08:19)
[2022-01-20] MEDS: lisinopril 10 mg Tablet PO (08:19)
[2022-01-20] MEDS: pantoprazole DR 40 mg Tablet PO (08:19)
[2022-01-20] MEDS: pyridostigmine 60 mg Tablet PO (08:19)
[2022-01-20] MEDS: atorvastatin 40 mg Tablet 20 MG PO (08:19)
[2022-01-20 09:55] LABS: Alanine Aminotransferase 33 U/L (0-41); Albumin Level 3.2 g/dL (3.5-5.2); Alkaline Phosphatase 64 IU/L (40-130); Anion Gap 11.4 (5-19); Aspartate Amino Transferase 26 U/L (0-40); Blood Urea Nitrogen 11 mg/dL (8-23); Calcium 8.7 mg/dL (8.5-10.5); Carbon Dioxide 29 mmol/L (22-29); Chloride 105 mmol/L (98-107); Globulin 2.8 g/dL (1.3-4.6); Glucose 63 mg/dL (65-115); Osmolality Calculated 291 mOsm/kg (285-295); Potassium 3.4 mmol/L (3.5-5.1); Sodium 142 mmol/L (136-145); Total Bilirubin 0.3 mg/dL (0.15-1.2)
[2022-01-20] MEDS: hydrocortisone 100 mg/2 mL SDV 50 MG IVP (10:16)
--- NOTE | 2022-01-20 11:45 | PC.SOCIAL ---
IMM update IMM updated with patient and family at bedside. Verbalized an understanding. Copy Pg 2 provided. Initialled, dated, timed, and placed in chart.
[2022-01-20 12:00] VITALS: BP 129/57; PULSE 70; RESP 14; TEMP 36.6; O2SAT 95
[2022-01-20 12:20] LABS: Glucose Point of Care 50 mg/dL (70-110)
[2022-01-20 12:20] LABS: Glucose Point of Care 196 mg/dL (70-110)
[2022-01-20 13:15] VITALS: BP 129/57; PULSE 70; RESP 14; TEMP 36.6; O2SAT 95
--- NOTE | 2022-01-20 13:41 | P.DS_ITS ---
Discharge Providers Date of Admission: 01/17/22 23:24 Date of Discharge: January 20, 2022 Attending Provider at Admission: Jeanmarie Wilder Attending Provider at Discharge: Victor Hugo Devi MD Diagnoses at Discharge Discharge Diagnosis (1) Fever: (2) Periodontal disease: (3) Tooth decay: (4) Dysphagia: (5) Cough: (6) Sinus bradycardia: Reason for Visit Reason for Visit: cough, fever, ams Hospital Course Hospital Course 81-year-old gentleman with history of myasthenia gravis, history of colitis, diabetes, with peritoneal disease, presented to the hospital due to fever at home 102 Fahrenheit, malaise, body aches.He was admitted for the management of Sepsis likely 2/2 recent peridontal disease s/p dental procedure, patient was kept on Abx cultures were drawan which remained negative at the time of discharge,patient remained afebrile during the hospital stay and otherwise hemodynamically stable. Patient was in asymptomatic sinus Bradycardia during the hospital stay with H/R Dropping in 4Os mostly while sleeping, patient was on Carvedilol at home which has been kept on hold on discharge, and he has been asked to monitor his H/R as well as B/P. post carvedilol hold H/R was picking up, he will keep a track on his blood pressure and H/R and will follow with his pcp as well as with his air table operator and at that based on his H/R decision can be made regarding carvedilol, possibility of event monitor was also discussed which he may need.Patient follow cardiology in [facility].Patient has been asked to continue to follow with his PCP, air table operator as well as neurologist as outpatient. Over all he has responded well to above medical managment and is being discharged in stable condition to home. Physical Exam Const: COMMON NORMALS: patient oriented x3 HENMT: COMMON NORMALS: normocephalic and atraumatic HEAD & SCALP: normocephalic and atraumatic Resp: COMMON NORMALS: clear to auscultation bilaterally EFFORT & INSPECTION: Yes symmetric chest movement AUSCULTATION: clear to auscultation bilaterally Cardio: COMMON NORMALS: regular rate, regular rhythm, S1 normal heart sound present, S2 normal heart sound present, No gallops present (Cardio), No murmurs present (Cardio), No rub (Cardio) and Peripheral pulses 2+ throughout RATE: regular rate RHYTHM: regular rhythm HEART SOUNDS: S1 normal heart sound p resent and S2 normal heart sound present PERIPHERAL PULSES: Peripheral pulses 2+ throughout GI: COMMON NORMALS: Normal to inspection, nondistended, normoactive bowel sounds present, Soft to palpation, non-tender, No hepatosplenomegaly present and no masses AUSCULTATION: Yes normoactive bowel sounds PALPATION: Yes Soft to palpation and Yes No hepatosplenomegaly present RECTAL EXAM: Yes deferred Extremity: COMMON NORMALS: no clubbing, cyanosis or edema and no pedal edema Neuro: COMMON NORMALS: patient oriented x3 Discharge Data Studies Completed and Pending Completed Studies During Hospitalization Category Date Time Status XR chest 1V portable [id number] Routine Exams 01/19/22 09:00 Completed XR chest 1V portable [id number] Stat Exams 01/17/22 13:01 Completed Pending at discharge Category Date Time Status Blood Culture Stat Lab 01/17/22 17:42 Results Radiology Impressions Chest X-Ray 01/19/22 09:00 IMPRESSION: Continued resolving of lung abnormalities with residual in the left lower lung. Questionable interval right pleural fluid accumulation. If present, small volume. Laboratory Results WBC 12.9 10^3/uL (4.0-10.0) H 01/20/22 05:56 RBC 4.38 10^6/uL (4.1-5.3) 01/20/22 05:56 Hgb 13.3 g/dL (11.7-16.6) 01/20/22 05:56 Hct 39.6 % (42.0-52.0) L 01/20/22 05:56 MCV 90.4 fl (80-94) 01/20/22 05:56 MCH 30.4 pg (28.0-34.0) 01/20/22 05:56 MCHC 33.6 g/dL (30.0-36.0) 01/20/22 05:56 RDW 13.5 % (12.1-15.1) 01/20/22 05:56 Plt Count 142 10^3/cmm (130-400) 01/20/22 05:56 MPV 10.2 fL (7.4-10.4) 01/20/22 05:56 Neut % (Auto) 63.2 % 01/20/22 05:56 Lymph % (Auto) 23.4 % 01/20/22 05:56 [place] % (Auto) 9.7 % 01/20/22 05:56 Eos % (Auto) 2.5 % 01/20/22 05:56 Baso % (Auto) 0.6 % 01/20/22 05:56 Neut # (Auto) 8.17 10^3/uL (1.8-7.7) H 01/20/22 05:56 Lymph # (Auto) 3.0 10^3/uL (0.8-4.8) 01/20/22 05:56 [place] # (Auto) 1.3 10^3/uL (0.2-0.9) H 01/20/22 05:56 Eos # (Auto) 0.3 10^3/uL (0.0-0.8) 01/20/22 05:56 Baso # (Auto) 0.1 10^3/uL (0.0-0.1) 01/20/22 05:56 Nucleated RBC % (auto) 0 % 01/20/22 05:56 Nucleated RBCs # 0.0 /100WBC 01/20/22 05:56 Sodium 142 mmol/L (136-145) 01/20/22 08:50 Potassium 3.4 mmol/L (3.5-5.1) L 01/20/22 08:50 Chloride 105 mmol/L (98-107) 01/20/22 08:50 Carbon Dioxide 29 mmol/L (22-29) 01/20/22 08:50 Anion Gap 11.4 (5-19) 01/20/22 08:50 BUN 11 mg/dL (8-23) 01/20/22 08:50 Creatinine 0.7 mg/dL (0.7-1.2) 01/20/22 08:50 GFR Calculation Not Reportable 01/20/22 08:50 Glucose 63 mg/dL (65-115) L 01/20/22 08:50 POC Glucose 196 mg/dL (70-110) H 01/20/22 11:12 Calculated Osmolality 291 mOsm/kg (285-295) 01/20/22 08:50 Lactic Acid 2.2 mmol/L (0.5-2.2) 01/17/22 14:20 Lactic Acid (Sepsis) 3.0 mmol/L (0.5-2.2) H 01/17/22 17:42 Calcium 8.7 mg/dL (8.5-10.5) 01/20/22 08:50 Total Bilirubin 0.3 mg/dL (0.15-1.2) 01/20/22 08:50 AST 26 U/L (0-40) 01/20/22 08:50 ALT 33 U/L (0-41) 01/20/22 08:50 Alkaline Phosphatase 64 IU/L (40-130) 01/20/22 08:50 Total Protein 6.0 g/dL (6.6-8.7) L 01/20/22 08:50 Albumin 3.2 g/dL (3.5-5.2) L 01/20/22 08:50 Globulin 2.8 g/dL (1.3-4.6) 01/20/22 08:50 Procalcitonin 1.91 ng/mL (0-0.5) H 01/17/22 14:20 Urine Color Yellow (Yellow) 01/17/22 14:12 Urine Appearance Clear (CLEAR) 01/17/22 14:12 Urine pH 5 (5-7) 01/17/22 14:12 Ur Specific [place] 1.010 (1.005-1.030) 01/17/22 14:12 Urine Protein Neg (Negative) 01/17/22 14:12 Urine Glucose (UA) Norm (Normal) 01/17/22 14:12 Urine Ketones Negative (Negative) 01/17/22 14:12 Urine Blood Neg (Negative) 01/17/22 14:12 Urine Nitrate Negative (Negative) 01/17/22 14:12 Urine Bilirubin Neg (Negative) 01/17/22 14:12 Urine Urobilinogen Norm mg/dL (Negative) 01/17/22 14:12 Ur Leukocyte Esterase Negative (Negative) 01/17/22 14:12 Coronavirus 229E (PCR) Not detected (NOT DETECT) 01/17/22 13:00 Influenza Type A Ag Negative (Negative) 01/17/22 13:00 Influenza Type B Ag Negative (Negative) 01/17/22 13:00 SARS-CoV-2 (PCR) Not detected (NOT DETECT) 01/17/22 13:00 Vitals Last Vital Signs Temp 97.9 F 01/20/22 13:15 Pulse 70 01/20/22 13:15 Resp 14 01/20/22 13:15 BP 129/57 01/20/22 13:15 Pulse Ox 95 01/20/22 13:15 Discharge Plan Discharge Patient Disposition: Home Condition: Stable Prescriptions: New levofloxacin 500 mg tablet 500 mg PO DAILY 7 Days Qty: 7 0RF metronidazole 500 mg tablet 500 mg PO BID 7 Days Qty: 14 0RF Continued Levemir FlexTouch U-100 Insuln 100 unit/mL (3 mL) insulin pen 18 unit SUBCUT DAILY 0RF docusate sodium 100 mg capsule 100 mg PO DAILY 0RF pyridostigmine bromide 60 mg tablet 60 mg PO TID 0RF pantoprazole 40 mg tablet,delayed release (DR/EC) 40 mg PO DAILY 0RF multivitamin Tablet 1 tab PO DAILY 0RF simvastatin 40 mg tablet 40 mg PO DAILY 0RF ramipril 5 mg capsule 5 mg PO DAILY 0RF rivaroxaban 20 mg tablet 20 mg PO DAILY 0RF Rx Instructions: must administer with evening meal insulin aspart U-100 [Novolog U-100 Insulin aspart] 100 unit/mL solution 10 unit SUBCUT TID 0RF Tylenol 325 mg Capsule 325 mg PO QID PRN (Reason: Pain) 0RF Held carvedilol 6.25 mg tablet 6.25 mg PO BID 0RF Hold Instructions: Resume on 01/27/22. Rx Instructions: must administer with a meal/food Discontinued acyclovir 200 mg capsule 200 mg PO DAILY 0RF Discharge Orders: Discharge Order (Routine); Ordered 01/20/22 Ordered By: Victor Hugo Devi Patient Instructions: Metronidazole (By mouth), Levofloxacin (By mouth), Fever - Adult, Opioid Safety Activity Restrictions/Additional Instructions: Please continue to follow with your pcp and air table operator. Discharge Attestations Time Spent in Discharge Care*: less than 30 min Quality Metrics Clinical Quality Measures [ No reported AMI, CVA or VTE this stay] Coding Level of Care Code Acute Chg FW DC note Diagnoses Fever R50.9 Periodontal disease K05.6 Tooth decay K02.9 Dysphagia R13.10 Cough R05.9 Sinus bradycardia R00.1
== END 2022-01-20 13:54 | disposition home or self-care (01) ==
LOC: ER 18:22 → ER IP 01-18 01:08 → MEDSURG 01-18 07:46
PROVIDERS: Family Medicine; Physician Assistant; Admitting Provider Internal Medicine; Emergency Provider Emergency Medicine; Visit Provider Internal Medicine
DX: R50.9 Fever, unspecified (principal); K05.6 Periodontal disease, unspecified; K02.9 Dental caries, unspecified; R13.10 Dysphagia, unspecified; R05.9 Cough, unspecified; R00.1 Bradycardia, unspecified; G70.00 Myasthenia gravis without (acute) exacerbation; E11.9 Type 2 diabetes mellitus without complications
CPT/HCPCS: 36415; 36416; 71045; 80053; 81003; 82962; 83605; 84145; 85025; 87040; 87635; 87804; 93005; 96365; 96367; 96372; 96375; 99285; G0378; J0456; J0696; J1720; J1815; J7030; J7040; J7050; J8499; S0030

== ENCOUNTER 2022-01-25 10:49 | Inpatient (IN) | payer MEDICARE, SELFPAY ==
[2022-01-25] VITALS (11 sets, daily range): BP systolic 123–156; BP diastolic 59–93; PULSE 78–90; RESP 16–22; TEMP 36.4–37.4; O2SAT 92–100; BMI 20.7
--- NOTE | 2022-01-25 12:40 | CT_ITS ---
WS: [id number] CT ABDOMEN AND PELVIS NONCONTRAST HISTORY: Abdominal pain TECHNIQUE: Imaging performed through the abdomen and pelvis. Coronal and sagittal reformats are submi tted. All CT scans at [facility] use at least one of these dose optimization techniques: auto mated exposure control; mA and/or kV adjustment per patient size (includes targeted exams where dose is matched to clinical indication); or iterative reconstruction. DLP: 960.13 mGy.cm COMPARISON: 08/10/2021 Lower thorax: Honeycombing and fibrotic changes at the lung bases. Mild pleural thickening. Heart is normal size. Moderate-sized hiatal hernia. Liver: 10 mm cyst inferior RIGHT lobe of the liver. No bile duct dilatation. Granulomata. Gallbladder: Prior cholecystectomy. Pancreas: Normal size and attenuation. Normal pancreatic duct. No pancreatitis or mass. Spleen: Normal. Adrenal glands: Normal. No mass. Right kidney: Normal size kidney with no mass or hydronephrosis. Left kidney: Cystic mass overlies the central pelvis measuring 5.6 x 5.9 cm. Similar to the prior darryn dy. No hydronephrosis. No solid mass. Aorta: Moderate to severe atherosclerosis abdominal aorta. No aneurysm. Atherosclerosis continues int o the common iliac arteries. No free fluid, intraperitoneal air or significant lymphadenopathy. GI tract: Prior appendectomy. No GI tract obstruction. Mild fluid distention of the colon. No signifi cant diverticular disease. Abdominal wall: Negative. No hernia. Pelvis: LEFT inguinal hernia containing fat. No adenopathy. Prostate gland is very mildly enlarged. V ynes minimal asymmetric wall thickening of the urinary bladder. This asymmetry was also noted on the p rior study from 08/10/2021. Osseous structures: No destructive bone lesions prior CT/CT abdomen pelvis wo con [id number] IMPRESSION: 1. There is mild constipation and fluid retention throughout the colon. No obs truction. 2. Prior appendectomy. 3. Mild asymmetric thickening of the bladder wall was described also on the pr ior study from 08/10/2021 without change. 4. Large LEFT renal cyst. 5. Prior cholecystectomy. 6. No renal obstruction. 7. Fat-containing LEFT inguinal hernia.
--- NOTE | 2022-01-25 12:49 | ECG_ITS ---
[facility] Test Date: 2022-01-25 Pat Name: Willam Christina Department: Room: Gender: Male Tool Checker: : 1940 Requested By: Maxim Colbert Order Number: [id number] Porsha MD: Nahun Khoury M.D. Measurements Intervals [place] Rate: 69 P: 71 FL: 167 QRS: -42 QRSD: 162 T: 15 QT: 452 QTc: 487 Interpretive Statements SINUS RHYTHM POSSIBLE LEFT ATRIAL ENLARGEMENT [-0.1mV P WAVE IN V1/V2] LEFT AXIS DEVIATION [QRS AXIS < -30] LEFT BUNDLE BRANCH BLOCK [120+ ms QRS DURATION, 80+ ms Q/S IN V1/V2, 85+ ms R IN I/aVL/V5/V6] Compared to ECG 01/19/2022 08:55:51 Sinus bradycardia no longer present Electronically Signed On 01-25-2022 16:30:21 CDT by Nahun Khoury M.D. [id number]
--- NOTE | 2022-01-25 12:57 | PC.NURSE ---
PT PLACED ON CONTINUOUS NIBP, SPO2, AND CM
--- NOTE | 2022-01-25 13:01 | W.ED.ABDPA2 ---
Documented by User: Maxim Louis DO 01/31/22 06:25 HPI - Abdominal Pain General: Chief Complaint: Abdominal Pain Stated Complaint: abd pain Time Seen by Provider: 01/25/22 12:32 Source: patient Mode of arrival: ambulatory Limitations: no limitations History of Present Illness: 85-year-old male presents emergency room with complaints of abdominal pain. He localizes pain to the right lower quadrant. He previously had hernia surgery there. He also previously had appendectomy and cholecystectomy. States that began this morning became progressively worse to the point where now he can barely tolerate even light touch or even movement. Patient has a history of diabetes mellitus and gastroesophageal reflux disease in addition to that he has a history of myasthenia gravis. He denies any dysuria urgency or frequency nausea vomiting or diarrhea. He has been able to void and empty his bladder and evacuate his bowels without difficulty. MD elicited complaint: abdominal pain Onset (ago): hour(s) Pain Consistency: constant Location: RLQ Quality: cramping Radiation: suprapubic Exacerbating factors: movement Relieving factors: nothing Associated Symptoms: Reports anorexia, bloating, GI cramping, heartburn, nausea and poor appetite; Denies belching, change in bowel habits, change in stool character, chills, coffee ground emesis, constipation, diarrhea, dyspepsia, dysuria, excessive flatus, fever(s), hematochezia, hematuria, hematemesis, fecal incontinence, loose stools, melena, syncope and vomiting Review of Systems Const: Denies: fever(s) or chills ENMT: Denies: throat pain, ear or mastoid pain, nasal discharge or nasal congestion Card: Denies: syncope Resp: Denies: dyspnea, productive cough or non-productive cough GI: Reports: nausea, heartburn, bloating and GI cramping; Denies: vomiting, hematemesis, coffee ground emesis, diarrhea, constipation, belching, excessive flatus, fecal incontinence, change in bowel habits, change in stool character, hematochezia or melena : Denies: dysuria or hematuria Skin/Breast: Denies: rash or pruritus PFSH ED PFSH: Medical History C. difficile colitis Cough Diabetes mellitus Dysphagia Dyspnea Fever Hematuria Myasthenia gravis Periodontal disease Sinus bradycardia Tooth decay Surgical History Hx of appendectomy Hx of cholecystectomy Family History Father , AT 73 Heart disease Mother , AT 64 Diabetes Social History Smoking and tobacco status: never smoked Alcohol intake: never Marital status: Current occupational status: retired and disabled History of recent travel: No Physical Exam Const: GENERAL APPEARANCE: cooperative and comfortable ORIENTATION/CONSCIOUSNESS: Yes awake, Yes oriented to person, Yes oriented to place and Yes oriented to time HENMT: COMMON NORMALS: normocephalic, atraumatic and hearing grossly normal bilaterally HEAD & SCALP: normocephalic and atraumatic Resp: COMMON NORMALS: normal respiratory effort, No retractions, No use of accessory muscles and clear to auscultation bilaterally AUSCULTATION: clear to auscultation bilaterally Cardio: COMMON NORMALS: regular rate, regular rhythm and No murmurs present (Cardio) RATE: regular rate RHYTHM: regular rhythm GI: COMMON NORMALS: No hepatosplenomegaly present AUSCULTATION: Yes normoactive bowel sounds PALPATION: Yes Tenderness to palpation present (GI) (lali-Umbilical), Yes Guarding due to palpation present (GI) and Yes No hepatosplenomegaly present Extremity: COMMON NORMALS: normal to inspection, capillary refill normal, no clubbing, cyanosis or edema, no calf tenderness and no pedal edema Neuro: SENSORIUM/ORIENTATION: Yes oriented to person, Yes oriented to place and Yes oriented to time Skin: COMMON NORMALS: no rashes or lesions noted GENERAL SKIN EXAM: no rashes or lesions noted Course Vital Signs: Vital signs: Vital Signs Temperature 99.3 F 01/31/22 04:00 Pulse Rate 59 L 01/31/22 04:00 Respiratory Rate 17 01/31/22 04:00 Blood Pressure 141/69 01/31/22 04:00 Pulse Oximetry 97 01/31/22 04:00 Oxygen Delivery Me thod 01/30/22 15:57 MDM - Abdominal Pain Medical Decision Making CTA pending. CT showed inflammation and questionable pneumatosis of a portion of small bowel with what looked like some ischemia on the initial CT. Care signed out to Dr. Quesada at change of shift. See final notes for diagnosis and disposition. Patient presents here with abdominal pain his lactate is improved CTA showed more gastroenteritis picture. I did speak to Brendan abernathy over labs and CT scan will admit with serial lactates patient is given antibiotics and he is to reassess in the morning. Patient's vital signs here been stable. Lab Data : 01/31/22 05:30 01/30/22 05:08 Labs/Radiology: Radiology Impressions Abdomen/Pelvis CT 01/25/22 12:40 IMPRESSION: 1. There is mild constipation and fluid retention throughout the colon. No obstruction. 2. Prior appendectomy. 3. Mild asymmetric thickening of the bladder wall was described also on the prior study from 08/10/2021 without change. 4. Large LEFT renal cyst. 5. Prior cholecystectomy. 6. No renal obstruction. 7. Fat-containing LEFT inguinal hernia. ADDENDUM: 01/25/22 1526 IMPRESSION: Focal short segment loop of ischemic small bowel in the central abdomen just above the umbilicus with pneumatosis. No free air is identified. Volvulus-like appearance of a very short segment small bowel loop. Surgical consultation necessary. Notified Maxim Louis DO at 01/25/2022 3:19 PM. Abdomen CTA 01/25/22 15:24 IMPRESSION: 1. Nonspecific segmental wall thickening with mesenteric inflammatory change/free fluid in the anterior mid abdominal region which shows an increased amount of fluid compared with the prior imaging. 2. Short segment intussusception should be included in the differential. Underlying lead point mass cannot be excluded. Short segment bowel with vascular compromise cannot be excluded. Chest X-Ray 01/25/22 21:47 IMPRESSION: No focal acute pulmonary disease. Abdomen X-Ray 01/27/22 06:00 IMPRESSION: Nonobstructive bowel gas pattern. KUB X-Ray 01/28/22 08:14 IMPRESSION: Nonobstructive bowel gas pattern. Laboratory Results WBC 14.1 10^3/uL (4.0-10.0) H 01/25/22 12:45 RBC 5.04 10^6/uL (4.1-5.3) 01/25/22 12:45 Hgb 15.4 g/dL (11.7-16.6) 01/25/22 12:45 Hct 45.9 % (42.0-52.0) 01/25/22 12:45 MCV 91.1 fl (80-94) 01/25/22 12:45 MCH 30.6 pg (28.0-34.0) 01/25/22 12:45 MCHC 33.6 g/dL (30.0-36.0) 01/25/22 12:45 RDW 13.7 % (12.1-15.1) 01/25/22 12:45 Plt Count 229 10^3/cmm (130-400) 01/25/22 12:45 MPV 10.1 fL (7.4-10.4) 01/25/22 12:45 Neut % (Auto) 78.0 % 01/25/22 12:45 Lymph % (Auto) 12.4 % 01/25/22 12:45 [place] % (Auto) 7.0 % 01/25/22 12:45 Eos % (Auto) 1.1 % 01/25/22 12:45 Baso % (Auto) 0.6 % 01/25/22 12:45 Neut # (Auto) 10.97 10^3/uL (1.8-7.7) H 01/25/22 12:45 Lymph # (Auto) 1.8 10^3/uL (0.8-4.8) 01/25/22 12:45 [place] # (Auto) 1.0 10^3/uL (0.2-0.9) H 01/25/22 12:45 Eos # (Auto) 0.2 10^3/uL (0.0-0.8) 01/25/22 12:45 Baso # (Auto) 0.1 10^3/uL (0.0-0.1) 01/25/22 12:45 Nucleated RBC % (auto) 0 % 01/25/22 12:45 Nucleated RBCs # 0.0 /100WBC 01/25/22 12:45 PT 17.70 SECONDS (12.1-14.9) H 01/25/22 12:45 INR 1.42 (0.8-1.2) H 01/25/22 12:45 Sodium 139 mmol/L (136-145) 01/25/22 12:45 Potassium 4.1 mmol/L (3.5-5.1) 01/25/22 12:45 Chloride 101 mmol/L (98-107) 01/25/22 12:45 Carbon Dioxide 23 mmol/L (22-29) 01/25/22 12:45 Anion Gap 19.1 (5-19) H 01/25/22 12:45 BUN 14 mg/dL (8-23) 01/25/22 12:45 Creatinine 0.9 mg/dL (0.7-1.2) 01/25/22 12:45 GFR Calculation Not Reportable 01/25/22 12:45 Glucose 180 mg/dL (65-115) H 01/25/22 12:45 POC Glucose 157 mg/dL (70-110) H 01/25/22 20:04 Calculated Osmolality 293 mOsm/kg (285-295) 01/25/22 12:45 Lactic Acid 1.6 mmol/L (0.5-2.2) 01/25/22 19:20 Lactate 4.2 mmol/L (0.5-2.2) H* 01/25/22 12:45 Calcium 9.1 mg/dL (8.5-10.5) 01/25/22 12:45 Total Bilirubin 0.5 mg/dL (0.15-1.2) 01/25/22 12:45 AST 33 U/L (0-40) 01/25/22 12:45 ALT 36 U/L (0-41) 01/25/22 12:45 Alkaline Phosphatase 85 IU/L (40-130) 01/25/22 12:45 Total Protein 7.1 g/dL (6.6-8.7) 01/25/22 12:45 Albumin 3.7 g/dL (3.5-5.2) 01/25/22 12:45 Globulin 3.4 g/dL (1.3-4.6) 01/25/22 12:45 Lipase 87 U/L (13-60) H 01/25/22 12:45 Urine Color Dark yellow (Yellow) 01/25/22 14:15 Urine Appearance Clear (CLEAR) 01/25/22 14:15 Urine pH 7 (5-7) 01/25/22 14:15 Ur Specific [place] 1.010 (1.005-1.030) 01/25/22 14:15 Urine Protein Neg (Negative) 01/25/22 14:15 Urine Glucose (UA) Norm (Normal) 01/25/22 14:15 Urine Ketones 1+ (Negative) H 01/25/22 14:15 Urine Blood 2+ (Negative) H 01/25/22 14:15 Urine Nitrate Negative (Negative) 01/25/22 14:15 Urine Bilirubin Neg (Negative) 01/25/22 14:15 Urine Urobilinogen Norm mg/dL (Negative) 01/25/22 14:15 Ur Leukocyte Esterase Trace (Negative) H 01/25/22 14:15 Urine RBC 0-4 /hpf (0-2) H 01/25/22 14:15 Urine WBC 0-4 /hpf (0-5) H 01/25/22 14:15 Ur Squamous Epith Cells None /hpf (0-5) 01/25/22 14:15 Amorphous Sediment Not Reportable 01/25/22 14:15 Urine Bacteria None /hpf (NONE) 01/25/22 14:15 Urine Mucus N /hpf 01/25/22 14:15 Discharge Plan Discharge Patient Disposition: Admitted As Inpatient Admit Provider: Anju Abel Clinical Impression: Volvulus, Myasthenia gravis Condition: Stable Coding Level of Care Code ED [employer] for Chg Fwd Exam Detailed Documented by User: Bret Quesada MD 01/25/22 20:40 HPI - Abdominal Pain General: Chief Complaint: Abdominal Pain Stated Complaint: abd pain Time Seen by Provider: 01/25/22 12:32 PFSH ED PFSH: Medical History C. difficile colitis Cough Diabetes mellitus Dysphagia Dyspnea Fever Hematuria Myasthenia gravis Periodontal disease Sinus bradycardia Tooth decay Surgical History Hx of appendectomy Hx of cholecystectomy Family History Father , AT 73 Heart disease Mother , AT 64 Diabetes Social History Smoking and tobacco status: never smoked Alcohol intake: never Marital status: Current occupational status: retired and disabled History of recent travel: No Course Vital Signs: Vital signs: Vital Signs Temperature 99.3 F 01/31/22 04:00 Pulse Rate 59 L 01/31/22 04:00 Respiratory Rate 17 01/31/22 04:00 Blood Pressure 141/69 01/31/22 04:00 Pulse Oximetry 97 01/31/22 04:00 Oxygen Delivery Me thod 01/30/22 15:57 MDM - Abdominal Pain Medical Decision Making Patient presents here with abdominal pain his lactate is improved CTA showed more gastroenteritis picture. I did speak to Brendan andres labs and CT scan will admit with serial lactates patient is given antibiotics and he is to reassess in the morning. Patient's vital signs here been stable. Lab Data : 01/31/22 05:30 01/30/22 05:08 Labs/Radiology: Radiology Impressions Abdomen/Pelvis CT 01/25/22 12:40 IMPRESSION: 1. There is mild constipation and fluid retention throughout the colon. No obstruction. 2. Prior appendectomy. 3. Mild asymmetric thickening of the bladder wall was described also on the prior study from 08/10/2021 without change. 4. Large LEFT renal cyst. 5. Prior cholecystectomy. 6. No renal obstruction. 7. Fat-containing LEFT inguinal hernia. ADDENDUM: 01/25/22 1526 IMPRESSION: Focal short segment loop of ischemic small bowel in the central abdomen just above the umbilicus with pneumatosis. No free air is identified. Volvulus-like appearance of a very short segment small bowel loop. Surgical consultation necessary. Notified Maxim Louis DO at 01/25/2022 3:19 PM. Abdomen CTA 01/25/22 15:24 IMPRESSION: 1. Nonspecific segmental wall thickening with mesenteric inflammatory change/free fluid in the anterior mid abdominal region which shows an increased amount of fluid compared with the prior imaging. 2. Short segment intussusception should be included in the differential. Underlying lead point mass cannot be excluded. Short segment bowel with vascular compromise cannot be excluded. Chest X-Ray 01/25/22 21:47 IMPRESSION: No focal acute pulmonary disease. Abdomen X-Ray 01/27/22 06:00 IMPRESSION: Nonobstructive bowel gas pattern. KUB X-Ray 01/28/22 08:14
[2022-01-25 13:25] LABS: Basophils # 0.1 10^3/uL (0.0-0.1); Basophils % 0.6 %; Eosinophils # 0.2 10^3/uL (0.0-0.8); Eosinophils % 1.1 %; Hematocrit 45.9 % (42.0-52.0); Hemoglobin 15.4 g/dL (11.7-16.6); Lymphocytes # 1.8 10^3/uL (0.8-4.8); Lymphocytes % 12.4 %; Mean Corpuscular HGB Conc 33.6 g/dL (30.0-36.0); Mean Corpuscular Hemoglobin 30.6 pg (28.0-34.0); Mean Corpuscular Volume 91.1 fl (80-94); Mean Platelet Volume 10.1 fL (7.4-10.4); Neutrophils # 10.97 10^3/uL (1.8-7.7); Nucleated Red Blood Cells % 0 %; Platelet Count 229 10^3/cmm (130-400); Red Blood Count 5.04 10^6/uL (4.1-5.3); Red Cell Distribution Width 13.7 % (12.1-15.1); White Blood Count 14.1 10^3/uL (4.0-10.0)
[2022-01-25 13:26] LABS: INR 1.42 (0.8-1.2)
[2022-01-25] MEDS: morphine 4 mg/mL SDV 1 mL IVP ×2 (13:26→20:15)
[2022-01-25] MEDS: ondansetron 2 mg/ML SDV 2 mL 4 MG IVP (13:27)
[2022-01-25 13:34] LABS: Lactate (Lactic Acid level) 4.2 mmol/L (0.5-2.2)
[2022-01-25 13:39] LABS: Alanine Aminotransferase 36 U/L (0-41); Albumin Level 3.7 g/dL (3.5-5.2); Alkaline Phosphatase 85 IU/L (40-130); Anion Gap 19.1 (5-19); Aspartate Amino Transferase 33 U/L (0-40); Blood Urea Nitrogen 14 mg/dL (8-23); Calcium 9.1 mg/dL (8.5-10.5); Carbon Dioxide 23 mmol/L (22-29); Chloride 101 mmol/L (98-107); Globulin 3.4 g/dL (1.3-4.6); Glucose 180 mg/dL (65-115); Lipase 87 U/L (13-60); Osmolality Calculated 293 mOsm/kg (285-295); Potassium 4.1 mmol/L (3.5-5.1); Sodium 139 mmol/L (136-145); Total Bilirubin 0.5 mg/dL (0.15-1.2); Total Protein 7.1 g/dL (6.6-8.7)
[2022-01-25] MEDS: metroNIDAZOLE IV 500 MG/100 ML PREMIX 100 MG IV ×2 (14:11→22:46)
[2022-01-25] MEDS: ciprofloxacin 400 MG/200 ML PREMIX 200 MG IV (14:11)
[2022-01-25 14:36] LABS: Urine Appearance Clear (CLEAR); Urine Color Dark Yellow (Yellow)
[2022-01-25 14:37] LABS: Add Urine Microscopic? YES; Bilirubin Urine Neg (Negative); Blood Urine 2+ (Negative); Glucose Urine UA Norm (Normal); Ketones Urine 1+ (Negative); Leukocyte Esterase Urine Trace (Negative); Nitrate Urine Negative (Negative); Protein Urine Neg (Negative); Urobilinogen Urine Norm (Negative); pH Urine 7 (5-7)
[2022-01-25 14:40] LABS: Add Urine Culture? No; Mucus Urine N /hpf; RBC Urine 0-4 /hpf (0-2); WBC Urine 0-4 /hpf (0-5)
--- NOTE | 2022-01-25 15:24 | CTR_ITS ---
PROCEDURE INFORMATION: Exam: CTA Abdomen With Contrast Exam date and time: 01/25/2022 7:00 PM Age: 81 years old Clinical indication: Abdominal pain; Acute; Additional info: Abd pain TECHNIQUE: Imaging protocol: Computed tomographic angiography of the abdomen with contrast. 3D rendering (Not supervised by radiologist): MIP and/or 3D reconstructed images were created by the technologist. Radiation optimization: All CT scans at this facility use at least one of these dose optimization techniques: automated exposure control; mA and/or kV adjustment per patient size (includes targeted exams where dose is matched to clinical indication); or iterative reconstruction. Contrast material: OMNIPAQUE 350; Contrast volume: 75 ml; Contrast route: INTRAVENOUS (IV); COMPARISON: CT abdomen pelvis wo con [id number] 01/25/2022 1:08 PM RADIATION DOSE METRICS: Total DLP (mGy-cm): 433.19 FINDINGS: Lungs: Fibrotic interstitial lung changes at the bases. Peripheral honeycombing at the posteroinferior right lower lobe aspect. Aorta: Small volume plaques of abdominal aorta. Negative for aneurysm. No dissection. Celiac trunk and mesenteric arteries: No occlusion or significant stenosis. Renal arteries: No occlusion or significant stenosis. Liver: Simple cyst in segment 6 of the liver measures 1.5 cm x 1.5 cm. Gallbladder and bile ducts: Cholecystectomy. Mildly dilated intrahepatic and extrahepatic biliary system which is nonspecific after cholecystectomy. Pancreas: Normal. No ductal dilation. Spleen: Normal. No splenomegaly. Adrenal glands: Normal. No mass. Kidneys and ureters: Left kidney posterior interpolar region simple cyst measures 6.4 cm x 5.8 cm. Stomach and bowel: There is redemonstration of the segmental small bowel wall thickening in the anterior mid abdominal region which show surrounding mesenteric free fluid/inflammatory changes. Matted segment of bowel is noted with poorly defined surrounding tissue planes. No extravasation of contrast into the bowel lumen. Bowel loops are nondilated. Lymph nodes: Unremarkable. No enlarged lymph nodes. Intraperitoneal space: No free air seen. No loculated intraperitoneal fluid collection identified. Bones/joints: Unremarkable. No acute fracture. Soft tissues: Unremarkable. CT/CT angio abdomen [id number] IMPRESSION: 1. Nonspecific segmental wall thickening with mesenteric inflammatory change/free fluid in the anterior mid abdominal region which shows an increased amount of fluid compared with the prior imaging. 2. Short segment intussusception should be included in the differential. Underlying lead point mass cannot be excluded. Short segment bowel with vascular compromise cannot be excluded.
[2022-01-25] MEDS: iohexol 350 mg/mL 100 mL Btl IV (16:48)
[2022-01-25 19:44] LABS: Lactic Sepsis W/Reflex 1.6 mmol/L (0.5-2.2)
[2022-01-25 20:19] LABS: Glucose Point of Care 157 mg/dL (70-110)
[2022-01-25] MEDS: sodium chloride 0.9% 1,000 ML 999 ML IV (20:19)
--- NOTE | 2022-01-25 21:47 | XRR_ITS ---
PROCEDURE INFORMATION: Exam: XR Chest Exam date and time: 01/25/2022 10:00 PM Age: 81 years old Clinical indication: Condition or disease; Lung condition and disease; Pneumonia TECHNIQUE: Imaging protocol: Radiologic exam of the chest. Views: 1 view. COMPARISON: CR XR chest 1V portable [id number] 01/19/2022 8:59 AM FINDINGS: Lungs: Reticular changes of interstitium. No focal airspace consolidation. Pleural spaces: Unremarkable. No pleural effusion. No pneumothorax. Heart/Mediastinum: Unremarkable. No cardiomegaly. Diaphragm: Mild right diaphragm elevation. Bones/joints: Unremarkable. XR/XR chest 1V portable [id number] IMPRESSION: No focal acute pulmonary disease.
--- NOTE | 2022-01-25 21:55 | PM.HP ---
Providers/Chief Complaint Admitting Physician: Anju Abel MD Chief Complaint: abd pain History of Present Illness Willam Christina is a 81 year old male recently discharged from the hospital on January 20 after being treated for community-acquired pneumonia, periodontitis. States he was feeling well after discharge and was recovering. Yesterday afternoon he started to develop abdominal pain, which was sharp, 10 on 10 at its peak intensity, nonradiating without any apparent exacerbating or relieving factors. States that it felt like his intestines were moving inside of his belly. His last bowel movement was over 24 hours ago. He had diarrhea, however has been using laxatives since his discharge from the hospital with 1-2 bowel movements per day. He has a past history of C. difficile colitis. He denies any vomiting. Denies any fever at home. He presented to the ER today due to worsening abdominal pain, and his abdomen now being tender to touch and palpation. CT of the abdomen showed focal short segment loop of ischemic small bowel just above the umbilicus with pneumatosis with volvulus-like appearance. Follow-up CTA was performed which showed nonspecific segmental wall thickening with mesenteric inflammation and a possible short segment intussusception. Short segment bowel with vascular compromise could not be excluded. His medical comorbidities include myasthenia gravis, history of colitis, diabetes,asymptomatic sinus bradycardia Review of Systems General: Reports: 10 or more systems reviewed and unremarkable except in HPI and below Const: Denies: fever(s), chills or body aches Eyes: Denies: change in vision, blurry vision or photophobia ENMT: Reports: hoarseness; Denies: throat pain, enlarged tonsils, odynophagia or nasal congestion Card: Denies: chest pain, palpitations, irregular heart rhythm, edema, swelling of feet/ankles, lightheadedness, pre-syncope, dyspnea on exertion or orthopnea Resp: Denies: dyspnea, productive cough, non-productive cough, wheezing, stridor, pain on inspiration, change in phlegm color, hemoptysis or chest congestion GI: Denies: abdominal pain, nausea, vomiting, hematemesis, coffee ground emesis, dysphagia, heartburn, diarrhea, constipation, GI cramping, change in stool character, hematochezia or melena : Denies: flank pain, dysuria, urinary frequency, urinary urgency, urinary hesitancy or hematuria Musc: Denies: neck pain, back pain, extremity pain, joint swelling, joint warmth or deformity Neuro: Denies: headache(s), numbness in extremities, weakness in extremities, sensory changes, difficulty walking, frequent falls, dizziness, vertigo, behavioral changes, Slurred speech present or seizure-like activity Psych: Denies: anxiety, depression, suicidal ideation or homicidal ideation Endo: Denies: polyuria, polydipsia, tired all the time, cold intolerance or hot flashes Eddie/Lymph: Denies: easy bruising or easy bleeding Medications/Allergies Home Medications Medication Instructions Recorded Confirmed Last Taken Type insulin aspart U-100 100 unit/mL See Rx Instructions .Route .COMPLEX 09/02/21 01/25/22 01/25/22 History subcutaneous solution (Novolog U-100 Insulin aspart) insulin detemir U-100 100 unit/mL 18 unit SUBCUT BEDTIME 09/02/21 01/25/22 01/24/22 History (3 mL) subcutaneous pen (Levemir FlexTouch U-100 Insulin) multivitamin 1 tab PO DAILY 09/02/21 01/25/22 01/17/22 History pyridostigmine bromide 60 mg tablet 60 mg PO TID 09/02/21 01/25/22 01/25/22 History ramipril 5 mg capsule 5 mg PO DAILY 09/02/21 01/25/22 01/25/22 History rivaroxaban 20 mg tablet 20 mg PO BEDTIME 09/02/21 01/25/22 01/24/22 History simvastatin 40 mg tablet 40 mg PO BEDTIME 09/02/21 01/25/22 01/24/22 History acetaminophen 325 mg capsule 325 mg PO QID PRN Pain 01/17/22 01/25/22 01/17/22 History (Tylenol) chlorhexidine gluconate 0.12 % 15 ml PO BID 01/25/22 01/25/22 01/24/22 History mouthwash Allergies Allergy/AdvReac Type Severity Reaction Status Date / Time Penicillins Allergy ALGY-Hives Verified 01/17/22 19:13 PFSH Acute PFSH: Medical History C. difficile colitis Cough Diabetes mellitus Dysphagia Dyspnea Fever Hematuria Myasthenia gravis Periodontal disease Sinus bradycardia Tooth decay Surgical History Hx of appendectomy Hx of cholecystectomy Family History Father , AT 73 Heart disease Mother , AT 64 Diabetes Social History Smoking and tobacco status: never smoked Alcohol intake: never Marital status: Current occupational status: retired and disabled History of recent travel: No Vitals/I&O/Wt Last Vital Signs Temp 99.3 F 01/25/22 21:00 Pulse 90 01/25/22 21:00 Resp 16 01/25/22 21:00 BP 134/63 01/25/22 21:00 Pulse Ox 95 01/25/22 21:00 O2 Del Method 01/25/22 21:00 01/25/22 01/25/22 01/25/22 06:59 14:59 22:59 Intake Total 1300 / 1300 Balance 1300 / 1300 Weight last 48 hrs Weight 61.689 kg Physical Exam Narrative: General: alert, awake and oriented x3, HEENT: PERRLA, pupils bilaterally equal and reactive, pallors not present Chest: Normal vesicular breath sounds, no added sounds, equal good air entry bilaterally CVS: S1-S2 regular, no murmurs, no tachycardia, no gallops, no rubs Abdomen: Soft, non distended, tender and firm to palpation Neuro: No focal deficits, no facial deformity, AO x3, power 5/5 in all limbs Data : 01/25/22 12:45 01/25/22 12:45 Other Labs: Radiology Impressions Abdomen/Pelvis CT 01/25/22 12:40 IMPRESSION: 1. There is mild constipation and fluid retention throughout the colon. No obstruction. 2. Prior appendectomy. 3. Mild asymmetric thickening of the bladder wall was described also on the prior study from 08/10/2021 without change. 4. Large LEFT renal cyst. 5. Prior cholecystectomy. 6. No renal obstruction. 7. Fat-containing LEFT inguinal hernia. ADDENDUM: 01/25/22 [id number] IMPRESSION: Focal short segment loop of ischemic small bowel in the central abdomen just above the umbilicus with pneumatosis. No free air is identified. Volvulus-like appearance of a very short segment small bowel loop. Surgical consultation necessary. Notified Maxim Louis DO at 01/25/2022 3:19 PM. Abdomen CTA 01/25/22 15:24 IMPRESSION: 1. Nonspecific segmental wall thickening with mesenteric inflammatory change/free fluid in the anterior mid abdominal region which shows an increased amount of fluid compared with the prior imaging. 2. Short segment intussusception should be included in the differential. Underlying lead point mass cannot be excluded. Short segment bowel with vascular compromise cannot be excluded. Chest X-Ray 01/25/22 21:47 IMPRESSION: No focal acute pulmonary disease. Laboratory Results WBC 14.1 10^3/uL (4.0-10.0) H 01/25/22 12:45 RBC 5.04 10^6/uL (4.1-5.3) 01/25/22 12:45 Hgb 15.4 g/dL (11.7-16.6) 01/25/22 12:45 Hct 45.9 % (42.0-52.0) 01/25/22 12:45 MCV 91.1 fl (80-94) 01/25/22 12:45 MCH 30.6 pg (28.0-34.0) 01/25/22 12:45 MCHC 33.6 g/dL (30.0-36.0) 01/25/22 12:45 RDW 13.7 % (12.1-15.1) 01/25/22 12:45 Plt Count 229 10^3/cmm (130-400) 01/25/22 12:45 MPV 10.1 fL (7.4-10.4) 01/25/22 12:45 Neut % (Auto) 78.0 % 01/25/22 12:45 Lymph % (Auto) 12.4 % 01/25/22 12:45 [place] % (Auto) 7.0 % 01/25/22 12:45 Eos % (Auto) 1.1 % 01/25/22 12:45 Baso % (Auto) 0.6 % 01/25/22 12:45 Neut # (Auto) 10.97 10^3/uL (1.8-7.7) H 01/25/22 12:45 Lymph # (Auto) 1.8 10^3/uL (0.8-4.8) 01/25/22 12:45 [place] # (Auto) 1.0 10^3/uL (0.2-0.9) H 01/25/22 12:45 Eos # (Auto) 0.2 10^3/uL (0.0-0.8) 01/25/22 12:45 Baso # (Auto) 0.1 10^3/uL (0.0-0.1) 01/25/22 12:45 Nucleated RBC % (auto) 0 % 01/25/22 12:45 Nucleated RBCs # 0.0 /100WBC 01/25/22 12:45 PT 17.70 SECONDS (12.1-14.9) H 01/25/22 12:45 INR 1.42 (0.8-1.2) H 01/25/22 12:45 Sodium 139 mmol/L (136-145) 01/25/22 12:45 Potassium 4.1 mmol/L (3.5-5.1) 01/25/22 12:45 Chloride 101 mmol/L (98-107) 01/25/22 12:45 Carbon Dioxide 23 mmol/L (22-29) 01/25/22 12:45 Anion Gap 19.1 (5-19) H 01/25/22 12:45 BUN 14 mg/dL (8-23) 01/25/22 12:45 Creatinine 0.9 mg/dL (0.7-1.2) 01/25/22 12:45 GFR Calculation Not Reportable 01/25/22 12:45 Glucose 180 mg/dL (65-115) H 01/25/22 12:45 POC Glucose 157 mg/dL (70-110) H 01/25/22 20:04 Calculated Osmolality 293 mOsm/kg (285-295) 01/25/22 12:45 Lactic Acid 1.6 mmol/L (0.5-2.2) 01/25/22 19:20 Lactate 4.2 mmol/L (0.5-2.2) H* 01/25/22 12:45 Calcium 9.1 mg/dL (8.5-10.5) 01/25/22 12:45 Total Bilirubin 0.5 mg/dL (0.15-1.2) 01/25/22 12:45 AST 33 U/L (0-40) 01/25/22 12:45 ALT 36 U/L (0-41) 01/25/22 12:45 Alkaline Phosphatase 85 IU/L (40-130) 01/25/22 12:45 Total Protein 7.1 g/dL (6.6-8.7) 01/25/22 12:45 Albumin 3.7 g/dL (3.5-5.2) 01/25/22 12:45 Globulin 3.4 g/dL (1.3-4.6) 01/25/22 12:45 Lipase 87 U/L (13-60) H 01/25/22 12:45 Urine Color Dark yellow (Yellow) 01/25/22 14:15 Urine Appearance Clear (CLEAR) 01/25/22 14:15 Urine pH 7 (5-7) 01/25/22 14:15 Ur Specific Ambler 1.010 (1.005-1.030) 01/25/22 14:15 Urine Protein Neg (Negative) 01/25/22 14:15 Urine Glucose (UA) Norm (Normal) 01/25/22 14:15 Urine Ketones 1+ (Negative) H 01/25/22 14:15 Urine Blood 2+ (Negative) H 01/25/22 14:15 Urine Nitrate Negative (Negative) 01/25/22 14:15 Urine Bilirubin Neg (Negative) 01/25/22 14:15 Urine Urobilinogen Norm mg/dL (Negative) 01/25/22 14:15 Ur Leukocyte Esterase Trace (Negative) H 01/25/22 14:15 Urine RBC 0-4 /hpf (0-2) H 01/25/22 14:15 Urine WBC 0-4 /hpf (0-5) H 01/25/22 14:15 Ur Squamous Epith Cells None /hpf (0-5) 01/25/22 14:15 Amorphous Sediment Not Reportable 01/25/22 14:15 Urine Bacteria None /hpf (NONE) 01/25/22 14:15 Urine Mucus N /hpf 01/25/22 14:15 Micro: Microbiology 01/25/22 14:53 Blood Culture - Preliminary Blood SPECIMEN COLLECTED A&P Assessment and plan (1) Volvulus: Status: Acute (2) Myasthenia gravis: Status: Acute Plan Admit to med/surg - Ct findings as noted above - currently pain relieved after morphine - Concern for bowel ischemia, elevated lactate 4.2 -->1.6 after hydration, trend every 6 hrs - iv ceftriaxone and iv flagyl for empiric coverage - General surgery consult - hold xarelto in case surgical intervention is needed -NPO, bowel rest Attestations Medical Necessity Statement*: >2midnight admission anticipated for above defined care Coding Level of Care Code Acute Help Desk Specialist for [facility] Diagnoses Volvulus K56.2 Myasthenia gravis G70.00
[2022-01-25] MEDS: famotidine 20 mg/2 mL INJ IVP (22:45)
[2022-01-25] MEDS: sodium chloride 0.9% 1,000 ML 75 ML IV (22:45)
[2022-01-25] MEDS: heparin 5,000 unit/mL INJ 1 mL 5000 UNIT SUBCUT (22:47)
[2022-01-26] VITALS (8 sets, daily range): BP systolic 109–136; BP diastolic 58–69; PULSE 75–95; RESP 12–20; TEMP 36.6–38.8; O2SAT 92–96
[2022-01-26] MEDS: morphine 4 mg/mL SDV 1 mL 2 MG IVP ×4 (00:09→14:45)
[2022-01-26] MEDS: cefTRIAXone 1,000 MG in sodium chloride 0.9% (plus) 50 ML 100 MG IV (00:09)
[2022-01-26 05:58] LABS: Basophils # 0.1 10^3/uL (0.0-0.1); Basophils % 0.9 %; Eosinophils # 0.1 10^3/uL (0.0-0.8); Eosinophils % 0.8 %; Hematocrit 37.1 % (42.0-52.0); Hemoglobin 12.9 g/dL (11.7-16.6); Lymphocytes # 1.1 10^3/uL (0.8-4.8); Lymphocytes % 7.9 %; Mean Corpuscular HGB Conc 34.8 g/dL (30.0-36.0); Mean Corpuscular Hemoglobin 30.3 pg (28.0-34.0); Mean Corpuscular Volume 87.1 fl (80-94); Mean Platelet Volume 9.5 fL (7.4-10.4); Monocytes # 1.4 10^3/uL (0.2-0.9); Monocytes % 9.8 %; Neutrophils # 11.17 10^3/uL (1.8-7.7); Neutrophils % 79.9 %; Nucleated Red Blood Cells % 0 %; Platelet Count 161 10^3/cmm (130-400); Red Blood Count 4.26 10^6/uL (4.1-5.3); Red Cell Distribution Width 13.9 % (12.1-15.1)
[2022-01-26] MEDS: metroNIDAZOLE IV 500 MG/100 ML PREMIX 100 MG IV ×3 (06:14→22:57)
[2022-01-26 06:17] LABS: Alanine Aminotransferase 43 U/L (0-41); Albumin Level 2.5 g/dL (3.5-5.2); Alkaline Phosphatase 67 IU/L (40-130); Aspartate Amino Transferase 48 U/L (0-40); Blood Urea Nitrogen 10 mg/dL (8-23); Calcium 8.2 mg/dL (8.5-10.5); Carbon Dioxide 22 mmol/L (22-29); Chloride 106 mmol/L (98-107); Globulin 3.2 g/dL (1.3-4.6); Glucose 132 mg/dL (65-115); Lactic Sepsis W/Reflex 0.7 mmol/L (0.5-2.2); Osmolality Calculated 285 mOsm/kg (285-295); Sodium 137 mmol/L (136-145); Total Bilirubin 0.7 mg/dL (0.15-1.2); Total Protein 5.7 g/dL (6.6-8.7)
[2022-01-26 06:33] LABS: Glucose Point of Care 146 mg/dL (70-110)
[2022-01-26 07:00] LABS: NT Pro B Type Natriuretic Pept 909 pg/mL (0-450); Procalcitonin 0.28 ng/mL (0-0.5)
[2022-01-26] MEDS: pyridostigmine 60 mg Tablet PO ×3 (08:53→20:26)
[2022-01-26] MEDS: acetaminophen 325 mg Tablet 650 MG PO ×2 (08:53→20:26)
--- NOTE | 2022-01-26 10:07 | PC.CHAP ---
Pastoral Care Encounter/Spiritual Assessment Type of Contact [] Declined human resources operations director visit [] Patient/Family/Request visit [] Outpatient visit [] Follow-up visit [] Physician referral [] Code/Alert [x] Routine visit [] Staff referral [] Actively dying [] Patient sleeping [] Family support [] [] Out of room [] Palliative care [] [x] Receiving care in room [] Pre-surgical visit [] Trauma [x] Long length of stay [] ICU visit [] Other: Relational/Emotional Strength [] Patient feels connected with others/family/visitors/staff [x] Distress [] Loneliness/isolation [] Abandonment Spirituality of Patient [x] Person of Azra [] Attends Alevism of their Azra [x] Believes in Prayer [] Reads Bible or Evangelical materials [] There are Spiritual issues to be addressed Cylinder Sander Operator Interventions [x] Prayer [x] Active listening [x] Non-anxious presence [x] Spiritual/emotional support [] Crisis/trauma care [x] Spiritual counseling [] Bereavement support [] Provided bereavement packet [] Provided Bible/devotional materials [] Provided toy/stuffed animal, coloring book to patient or family member [] Provided Communion [] Anointing/[place] [] Salvation [x] Completed spiritual assessment [] Other: Impact on Illness or Injury [] Angry [] Fearful [x] Anxious [] Often cries [] Exhaustion [x] Unable to work [] Unable to attend muslim [] Unable to walk/stand [] Unable to read [] Unable to drive [] Unable to eat/drink [] Unable to sleep [] Unable to be with family [] Patient intubated [] Other: Summary dealing with swelling in lower abnoum waiting on tests to see what needs to done +1 well go home at some point both have a good attitude Time spent with patient 15 mins
[2022-01-26] MEDS: heparin 5,000 unit/mL INJ 1 mL 5000 UNIT SUBCUT ×2 (10:46→22:57)
[2022-01-26] MEDS: famotidine 20 mg/2 mL INJ IVP ×2 (10:46→20:26)
[2022-01-26] MEDS: sodium chloride 0.9% 1,000 ML 75 ML IV (10:55)
[2022-01-26 11:24] LABS: Glucose Point of Care 136 mg/dL (70-110)
--- NOTE | 2022-01-26 12:03 | PM.PN ---
Subjective Subjective: Patient was seen this morning, he continues to complain of abdominal pain, abdominal distention, has not had a bowel movement, not passing gas, no nausea, no vomiting, no fevers, daughter at bedside, IN detail discussed patient's CT scan findings, awaiting surgical consultation, does have a history of CHF, no history of CAD, no history of COPD, does have multiple abdominal surgery including appendectomy, cholecystectomy, and inguinal hernia repair Vitals/I&O/Wt Last Vital Signs Temp 99.0 F 01/26/22 08:00 Pulse 85 01/26/22 08:00 Resp 16 01/26/22 08:00 BP 118/61 01/26/22 08:00 Pulse Ox 96 01/26/22 08:00 O2 Del Method 01/26/22 08:00 01/25/22 01/26/22 01/26/22 22:59 06:59 14:59 Intake Total 1300 / 1300 100 / 1400 1062.5 / 1062.5 Balance 1300 / 1300 100 / 1400 1062.5 / 1062.5 Weight last 48 hrs Weight 61.689 kg Physical Exam Const: COMMON NORMALS: no acute distress and patient oriented x3 Neck/C-Spine: COMMON NORMALS: no JVD Resp: COMMON NORMALS: normal respiratory effort, No retractions, No use of accessory muscles and clear to auscultation bilaterally AUSCULTATION: clear to auscultation bilaterally Cardio: COMMON NORMALS: no JVD, regular rate, regular rhythm, S1 normal heart sound present and S2 normal heart sound present RATE: regular rate RHYTHM: regular rhythm HEART SOUNDS: S1 normal heart sound present and S2 normal heart sound present Extremity: COMMON NORMALS: no pedal edema Neuro: COMMON NORMALS: patient oriented x3 Psych: COMMON NORMALS: mental status grossly normal Data : 01/26/22 05:45 01/26/22 05:45 Micro: Microbiology 01/26/22 05:45 Blood Culture - Preliminary Blood SPECIMEN COLLECTED 01/25/22 14:53 Blood Culture - Preliminary Blood SPECIMEN COLLECTED A&P Assessment and plan (1) Volvulus: Status: Acute (2) Myasthenia gravis: Status: Acute Plan Admit to med/surg - Ct findings 1. Nonspecific segmental wall thickening with mesenteric inflammatory change/free fluid in the anterior mid abdominal region which shows an increased amount of fluid compared with the prior imaging. 2. Short segment intussusception should be included in the differential. Underlying lead point mass cannot be excluded. Short segment bowel with vascular compromise cannot be excluded. - currently pain relieved after morphine - Concern for bowel ischemia, elevated lactate 4.2 --> 1.0 after hydration, trend every 6 hrs - iv ceftriaxone and iv flagyl for empiric coverage - General surgery consult - hold xarelto in case surgical intervention is needed -NPO, bowel rest -Serial abdominal exams Attestations Medical Necessity Statement*: Patient requires position for abdominal pain, concern for bowel ischemia secondary to possible intussusception versus volvulus Coding Level of Care Code Acute Blower Room Attendant for [facility] Diagnoses Volvulus K56.2 Myasthenia gravis G70.00
--- NOTE | 2022-01-26 12:06 | XR_ITS ---
WS: [id number] Exam: XR KUB portable [id number] Date/Time of Exam: 01/26/2022 12:46 PM Reason For Exam: abdominal pain No bowel obstruction or free air. No sign of organ enlargement. Radiographic contrast in the urinary bladder. Bony structures are intact. Signs of prior cholecystectomy. XR/XR KUB portable [id number] IMPRESSION: 1. No acute abdominal process. Other minor nonacute findings as noted above.
--- NOTE | 2022-01-26 13:12 | PM.CONSULT ---
Providers/Reason For Consult Consulting Physician/Specialty*: General Surgery Dr. Cardona Reason for Consult*: Abdominal pain Attending Physician: Jose Tesfaye MD History of Present Illness History of Present Illness Willam Christina is a 81 year old male who presented to the ER yesterday with complaints of severe abdominal pain since earlier in the day. Patient states that the pain initially started in the right lower quadrant and moved to the mid abdomen. He initially thought that he might have a complication from his hernia repair. He was recently discharged from hospital after being treated for pneumonia. He is currently on Xarelto and took his last dose day before yesterday. He denies any fevers, chills, nausea, vomiting, constipation or diarrhea. No similar episodes in the past. On initial presentation his CT scan showed possible pneumatosis and his lactate was 4 and therefore a CTA was obtained which showed nonspecific segmental wall thickening with mesenteric inflammatory changes. His repeat lactate after couple of liters of saline was down to 1.3 Review of Systems General: Reports: 10 or more systems reviewed and unremarkable except in HPI and below Medications/Allergies Home Medications Medication Instructions Recorded Confirmed Last Taken Type insulin aspart U-100 100 unit/mL See Rx Instructions .Route .COMPLEX 09/02/21 01/25/22 01/25/22 History subcutaneous solution (Novolog U-100 Insulin aspart) insulin detemir U-100 100 unit/mL 18 unit SUBCUT BEDTIME 09/02/21 01/25/22 01/24/22 History (3 mL) subcutaneous pen (Levemir FlexTouch U-100 Insulin) multivitamin 1 tab PO DAILY 09/02/21 01/25/22 01/17/22 History pyridostigmine bromide 60 mg tablet 60 mg PO TID 09/02/21 01/25/22 01/25/22 History ramipril 5 mg capsule 5 mg PO DAILY 09/02/21 01/25/22 01/25/22 History rivaroxaban 20 mg tablet 20 mg PO BEDTIME 09/02/21 01/25/22 01/24/22 History simvastatin 40 mg tablet 40 mg PO BEDTIME 09/02/21 01/25/22 01/24/22 History acetaminophen 325 mg capsule 325 mg PO QID PRN Pain 01/17/22 01/25/22 01/17/22 History (Tylenol) chlorhexidine gluconate 0.12 % 15 ml PO BID 01/25/22 01/25/22 01/24/22 History mouthwash Allergies Allergy/AdvReac Type Severity Reaction Status Date / Time Penicillins Allergy ALGY-Hives Verified 01/17/22 19:13 Current Medications Generic Name Dose Route Start Last Admin Trade Name Freq PRN Reason Stop Dose Admin Acetaminophen 650 mg 01/25/22 21:47 01/26/22 08:53 Acetaminophen 325 Mg Tablet PO 650 mg Q6H PRN Administration Mild/Mod Pain Or Temp >/= 101 Famotidine 20 mg 01/25/22 22:00 01/26/22 10:46 Famotidine 20 Mg/2 Ml Inj IVP 20 mg Q12H BING Administration Heparin Sodium (Porcine) 5,000 unit 01/25/22 23:00 01/26/22 10:46 Heparin 5,000 Unit/Ml Inj 1 Ml SUBCUT 5,000 unit Q12H BING Administration Sodium Chloride 1,000 mls @ 75 mls/hr 01/25/22 22:00 01/26/22 10:55 Sodium Chloride 0.9% IV 75 mls/hr .[id number] BING Administration Ceftriaxone Sodium 1,000 mg/ 50 mls @ 100 mls/hr 01/26/22 00:00 01/26/22 08:58 Sodium Chloride IV Infused Q24H BING Infusion Protocol Metronidazole 500 mg in 100 mls @ 100 mls/hr 01/25/22 23:00 01/26/22 08:58 Flagyl Iv IV Infused Q8H BING Infusion Protocol Insulin Human Lispro 0 unit 01/26/22 08:00 01/26/22 12:02 Insulin Lispro 100 Unit/1 Ml SUBCUT Not Given WM&BEDTIME BING Protocol Morphine Sulfate 2 mg 01/25/22 21:47 01/26/22 10:43 Morphine 4 Mg/Ml Sdv 1 Ml IVP 2 mg Q4H PRN Administration SEVERE PAIN Pyridostigmine [place] 60 mg 01/26/22 09:00 01/26/22 08:53 Pyridostigmine 60 Mg Tablet PO 60 mg TID BING Administration PFSH Acute PFSH: Medical History C. difficile colitis Cough Diabetes mellitus Dysphagia Dyspnea Fever Hematuria Myasthenia gravis Periodontal disease Sinus bradycardia Tooth decay Surgical History Hx of appendectomy Hx of cholecystectomy Family History Father , AT 73 Heart disease Mother , AT 64 Diabetes Social History Smoking and tobacco status: never smoked Alcohol intake: never Marital status: Current occupational status: retired and disabled History of recent travel: No Vitals/I&O/Wt Last Vital Signs Temp 98.7 F 01/26/22 12:00 Pulse 75 01/26/22 12:00 Resp 16 01/26/22 12:00 BP 119/65 01/26/22 12:00 Pulse Ox 96 01/26/22 12:00 O2 Del Method 01/26/22 12:00 01/25/22 01/26/22 01/26/22 22:59 06:59 14:59 Intake Total 1300 / 1400 100 / 1400 1062.5 / 1062.5 Balance 1300 / 1400 100 / 1400 1062.5 / 1062.5 Weight last 48 hrs Weight 136 lb Physical Exam Narrative: HEENT: Normocephalic Eye: Sclera /conjunctiva normal Abdomen: Soft to palpation, nondistended, tender just superior to the umbilicus with voluntary guarding, no rigidity, the rest of the abdomen was nontender Neurological: Oriented to place person and time Skin: Intact, no lesions appreciated on gross exam Data : 01/27/22 05:23 01/27/22 05:23 Micro: Microbiology 01/26/22 05:45 Blood Culture - Preliminary Blood SPECIMEN COLLECTED 01/25/22 14:53 Blood Culture - Preliminary Blood SPECIMEN COLLECTED A&P Assessment and plan (1) Abdominal pain: 81-year-old male who presents with onset of severe abdominal pain with no other GI symptoms since yesterday afternoon. CT scan shows no evidence of bowel ischemia or pneumatosis but there is a segment of nonspecific small bowel wall thickening which correlates with the site of tenderness on palpation. This could be severe enteritis though as per CT report intussusception is a possibility. At this point patient is hemodynamically stable and feels better than last night when he was initially presented to the ER. Discussed treatment options with the patient and the family which would be diagnostic laparoscopy, possible bowel resection or conservative management with IV antibiotics and bowel rest. Since patient is feeling a bit better we will continue with IV antibiotics and and he has not been off anticoagulation for more than 48 hours which significantly increases his risk of bleeding if he were to proceed with surgery. Status: Acute Consult Attestations Medical Necessity Statement: As per attending physician Coding Level of Care Code Acute Bingo Cashier for [facility] Erika Diagnoses Abdominal pain R10.9
[2022-01-26 17:48] LABS: Glucose Point of Care 140 mg/dL (70-110)
[2022-01-26 19:52] LABS: Lactic Sepsis W/Reflex 0.9 mmol/L (0.5-2.2)
[2022-01-26 20:57] LABS: Glucose Point of Care 140 mg/dL (70-110)
[2022-01-27] VITALS (7 sets, daily range): BP systolic 126–147; BP diastolic 64–70; PULSE 65–89; RESP 13–22; TEMP 36.8–37.4; O2SAT 95–97
[2022-01-27] MEDS: cefTRIAXone 1,000 MG in sodium chloride 0.9% (plus) 50 ML 100 MG IV (00:20)
[2022-01-27] MEDS: sodium chloride 0.9% 1,000 ML 75 ML IV ×2 (00:22→12:09)
[2022-01-27 05:31] LABS: Basophils # 0.1 10^3/uL (0.0-0.1); Basophils % 0.6 %; Eosinophils # 0.1 10^3/uL (0.0-0.8); Eosinophils % 0.6 %; Hematocrit 39.7 % (42.0-52.0); Hemoglobin 12.9 g/dL (11.7-16.6); Lymphocytes % 5.9 %; Mean Corpuscular HGB Conc 32.5 g/dL (30.0-36.0); Mean Corpuscular Hemoglobin 30.5 pg (28.0-34.0); Mean Corpuscular Volume 93.9 fl (80-94); Mean Platelet Volume 9.5 fL (7.4-10.4); Monocytes # 1.1 10^3/uL (0.2-0.9); Monocytes % 6.8 %; Neutrophils # 13.78 10^3/uL (1.8-7.7); Neutrophils % 85.5 %; Nucleated Red Blood Cells % 0 %; Platelet Count 141 10^3/cmm (130-400); Red Blood Count 4.23 10^6/uL (4.1-5.3); Red Cell Distribution Width 14.1 % (12.1-15.1); White Blood Count 16.1 10^3/uL (4.0-10.0)
[2022-01-27 05:43] LABS: INR 1.43 (0.8-1.2)
[2022-01-27 05:51] LABS: Lactate (Lactic Acid level) 1.1 mmol/L (0.5-2.2)
[2022-01-27] MEDS: metroNIDAZOLE IV 500 MG/100 ML PREMIX 100 MG IV ×3 (05:51→23:29)
[2022-01-27 06:00] LABS: Alanine Aminotransferase 35 U/L (0-41); Albumin Level 2.8 g/dL (3.5-5.2); Alkaline Phosphatase 64 IU/L (40-130); Aspartate Amino Transferase 32 U/L (0-40); Blood Urea Nitrogen 8 mg/dL (8-23); Calcium 8.2 mg/dL (8.5-10.5); Carbon Dioxide 25 mmol/L (22-29); Chloride 106 mmol/L (98-107); Glucose 109 mg/dL (65-115); Osmolality Calculated 291 mOsm/kg (285-295); Phosphorus 1.8 mg/dL (2.5-4.5); Sodium 141 mmol/L (136-145); Total Bilirubin 0.6 mg/dL (0.15-1.2); Total Protein 5.8 g/dL (6.6-8.7)
--- NOTE | 2022-01-27 06:00 | XRR_ITS ---
PROCEDURE INFORMATION: Exam: XR Abdomen Exam date and time: 01/27/2022 5:35 AM Age: 81 years old Clinical indication: Abdominal pain; Localized; Lower; Additional info: Sbo TECHNIQUE: Imaging protocol: Radiologic exam of the abdomen. Views: 2 Views. Upright and supine views. COMPARISON: CR XR KUB portable [id number] 01/26/2022 12:52 PM FINDINGS: Lungs: Bibasilar pulmonary scarring noted. Gastrointestinal tract: No abnormally dilated air-filled bowel loops identified. Intraperitoneal space: Surgical clips in the right upper quadrant noted. Vasculature: Vascular phleboliths in the pelvis noted. Bones/joints: Unremarkable. XR/XR abdomen min 2V [id number] IMPRESSION: Nonobstructive bowel gas pattern.
[2022-01-27 06:10] LABS: NT Pro B Type Natriuretic Pept 1589 pg/mL (0-450)
[2022-01-27 06:12] LABS: Glucose Point of Care 117 mg/dL (70-110)
[2022-01-27] MEDS: pyridostigmine 60 mg Tablet PO ×3 (09:43→21:41)
[2022-01-27] MEDS: famotidine 20 mg/2 mL INJ IVP ×2 (09:43→21:41)
--- NOTE | 2022-01-27 11:09 | P.PN_ITS ---
Subjective Subjective: Patient feels a bit better today, no nausea or vomiting, no flatus. His abdominal pain is mainly around the umbilicus Medications: Reviewed: Yes Vitals/I&O/Wt Last Vital Signs Temp 98.2 F 01/27/22 08:00 Pulse 87 01/27/22 08:00 Resp 16 01/27/22 08:00 BP 143/64 01/27/22 08:00 Pulse Ox 97 01/27/22 08:00 O2 Del Method 01/27/22 08:00 01/26/22 01/27/22 01/27/22 22:59 06:59 14:59 Intake Total 460 / 2622.5 1100 / 2622.5 150 / 150 Output Total 50 / 300 250 / 300 125 / 125 Balance 410 / 2322.5 850 / 2322.5 25 / 25 Weight last 48 hrs Weight 136 lb Physical Exam Narrative: Abdomen: Soft, nondistended, tender superior to the umbilicus, the umbilicus has mild erythema Data : 01/27/22 05:23 01/27/22 05:23 Micro: Microbiology 01/26/22 05:45 Blood Culture - Preliminary Blood NEGATIVE TO DATE 01/25/22 14:53 Blood Culture - Preliminary Blood NEGATIVE TO DATE A&P Assessment and plan (1) Abdominal pain: 81-year-old male who was admitted to the hospital with severe abdominal pain. He denies any nausea or vomiting, overall feels a bit better and feels hungry He is hemodynamically stable and the tenderness is localized to the supraumbilical area, there is no significant guarding or rigidity. His white count is gone from 14 K to 16 K Abdominal x-ray shows air within the colon with a nonobstructive bowel gas pattern Start clear liquid diet Patient has now been off anticoagulation for 48 hours Discussed with the patient that we will continue with conservative measures including IV antibiotics at this point, though if he does not show significant improvement in the next 24 to 48 hours he may require surgical intervention. I have also explained to him that my partner Dr. Arroyo will be covering for me over the weekend Status: Acute Attestations Medical Necessity Statement*: As per primary Coding Level of Care Code Acute Manager [facility] Diagnoses Abdominal pain R10.9
[2022-01-27 11:34] LABS: Glucose Point of Care 105 mg/dL (70-110)
[2022-01-27] MEDS: heparin 5,000 unit/mL INJ 1 mL 5000 UNIT SUBCUT ×2 (11:55→23:30)
[2022-01-27] MEDS: morphine 4 mg/mL SDV 1 mL 2 MG IVP (11:59)
--- NOTE | 2022-01-27 13:47 | P.PN_ITS ---
Subjective Subjective: Patient was seen this morning, he has continues to have abdominal pain, abdomen less distended, no bowel movement, is not passing gas, no nausea, no vomiting Vitals/I&O/Wt Last Vital Signs Temp 98.4 F 01/27/22 11:33 Pulse 80 01/27/22 11:33 Resp 18 01/27/22 11:59 BP 131/68 01/27/22 11:33 Pulse Ox 96 01/27/22 11:33 O2 Del Method 01/27/22 11:33 01/26/22 01/27/22 01/27/22 22:59 06:59 14:59 Intake Total 460 / 1522.5 1100 / 2622.5 1033.75 / 1033.75 Output Total 50 / 50 250 / 300 125 / 125 Balance 410 / 1472.5 850 / 2322.5 908.75 / 908.75 Physical Exam Const: COMMON NORMALS: no acute distress and patient oriented x3 Resp: COMMON NORMALS: normal respiratory effort, No retractions, No use of accessory muscles and clear to auscultation bilaterally AUSCULTATION: clear to auscultation bilaterally Cardio: COMMON NORMALS: regular rate, regular rhythm, S1 normal heart sound present and S2 normal heart sound present RATE: regular rate RHYTHM: regular rhythm HEART SOUNDS: S1 normal heart sound present and S2 normal heart sound present GI: OTHER: Abdomen soft, slightly distended, diffuse abdominal tenderness, no guarding, no rebound, no rigidity Neuro: COMMON NORMALS: patient oriented x3 Psych: COMMON NORMALS: mental status grossly normal Data : 01/27/22 05:23 01/27/22 05:23 Micro: Microbiology 01/26/22 05:45 Blood Culture - Preliminary Blood NEGATIVE TO DATE 01/25/22 14:53 Blood Culture - Preliminary Blood NEGATIVE TO DATE A&P Assessment and plan (1) Volvulus: Status: Acute (2) Myasthenia gravis: Status: Acute Plan Admit to med/surg - Ct findings 1. Nonspecific segmental wall thickening with mesenteric inflammatory change/free fluid in the anterior mid abdominal region which shows an increased amount of fluid compared with the prior imaging. 2. Short segment intussusception should be included in the differential. Underlying lead point mass cannot be excluded. Short segment bowel with vascular compromise cannot be excluded. - currently pain relieved after morphine - Concern for bowel ischemia, although felt to be unlikely as lactic acid has improved, elevated lactate 4.2 --> 1.1 after hydration, trend every 24 hours - iv ceftriaxone and iv flagyl for empiric coverage - General surgery consult - hold xarelto in case surgical intervention is needed -NPO, bowel rest -Serial abdominal exams -Discussed continued close observation, versus surgical intervention, will await discussion with general surgery and patient Attestations Medical Necessity Statement*: Patient requires hospitalization for abdominal ischemia, abdominal pain, inpatient, greater than 2 midnights 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
[2022-01-27 17:03] LABS: Glucose Point of Care 114 mg/dL (70-110)
[2022-01-28] VITALS: BP 139/62; PULSE 75; RESP 15; TEMP 37; O2SAT 96
[2022-01-28] MEDS: cefTRIAXone 1,000 MG in sodium chloride 0.9% (plus) 50 ML 100 MG IV
[2022-01-28 04:00] VITALS: BP 140/66; PULSE 75; RESP 13; TEMP 36.7; O2SAT 97
[2022-01-28] MEDS: sodium chloride 0.9% 1,000 ML 75 ML IV ×2 (05:21→20:32)
[2022-01-28 05:56] LABS: Basophils # 0.1 10^3/uL (0.0-0.1); Basophils % 0.7 %; Eosinophils # 0.2 10^3/uL (0.0-0.8); Eosinophils % 1.4 %; Hematocrit 36.7 % (42.0-52.0); Hemoglobin 12.2 g/dL (11.7-16.6); Lymphocytes # 1.1 10^3/uL (0.8-4.8); Lymphocytes % 9.2 %; Mean Corpuscular HGB Conc 33.2 g/dL (30.0-36.0); Mean Corpuscular Hemoglobin 30.4 pg (28.0-34.0); Mean Corpuscular Volume 91.5 fl (80-94); Monocytes # 0.9 10^3/uL (0.2-0.9); Monocytes % 7.1 %; Neutrophils # 10.08 10^3/uL (1.8-7.7); Nucleated Red Blood Cells % 0 %; Platelet Count 159 10^3/cmm (130-400); Red Blood Count 4.01 10^6/uL (4.1-5.3); Red Cell Distribution Width 13.6 % (12.1-15.1); White Blood Count 12.4 10^3/uL (4.0-10.0)
[2022-01-28 06:11] LABS: Lactate (Lactic Acid level) 0.8 mmol/L (0.5-2.2)
[2022-01-28 06:21] LABS: Glucose Point of Care 114 mg/dL (70-110)
[2022-01-28 06:21] LABS: INR 1.27 (0.8-1.2)
[2022-01-28 06:33] LABS: Alanine Aminotransferase 27 U/L (0-41); Albumin Level 2.6 g/dL (3.5-5.2); Alkaline Phosphatase 73 IU/L (40-130); Anion Gap 11.7 (5-19); Aspartate Amino Transferase 23 U/L (0-40); Blood Urea Nitrogen 7 mg/dL (8-23); C Reactive Protein 148.6 mg/L (0.0-4.9); Calcium 7.9 mg/dL (8.5-10.5); Carbon Dioxide 26 mmol/L (22-29); Chloride 104 mmol/L (98-107); Globulin 2.9 g/dL (1.3-4.6); Glucose 109 mg/dL (65-115); NT Pro B Type Natriuretic Pept 2105 pg/mL (0-450); Osmolality Calculated 285 mOsm/kg (285-295); Phosphorus 1.7 mg/dL (2.5-4.5); Potassium 3.7 mmol/L (3.5-5.1); Sodium 138 mmol/L (136-145); Total Bilirubin 0.4 mg/dL (0.15-1.2); Total Protein 5.5 g/dL (6.6-8.7)
[2022-01-28 07:36] VITALS: BP 136/83; PULSE 73; RESP 18; TEMP 36.7; O2SAT 96
--- NOTE | 2022-01-28 08:14 | XRR_ITS ---
PROCEDURE INFORMATION: Exam: XR Abdomen Exam date and time: 01/28/2022 8:24 AM Age: 81 years old Clinical indication: Abdominal pain; Generalized; Prior surgery; Surgery type: Right inguinal TECHNIQUE: Imaging protocol: Radiologic exam of the abdomen. Views: Frontal supine view of the abdomen. 1 View. COMPARISON: CR XR abdomen min 2V [id number] 01/27/2022 5:35 AM FINDINGS: Gastrointestinal tract: Nonobstructive bowel gas pattern. Organs: Cholecystectomy clips. Bones/joints: Unremarkable. XR/XR KUB portable [id number] IMPRESSION: Nonobstructive bowel gas pattern.
[2022-01-28] MEDS: pyridostigmine 60 mg Tablet PO ×3 (08:30→20:32)
[2022-01-28] MEDS: metroNIDAZOLE IV 500 MG/100 ML PREMIX 100 MG IV ×3 (08:31→23:47)
[2022-01-28] MEDS: famotidine 20 mg/2 mL INJ IVP ×2 (08:35→21:40)
--- NOTE | 2022-01-28 10:22 | PM.PN ---
Subjective Subjective: Patient feels a bit better today, no nausea or vomiting, no flatus. His abdominal pain is mainly around the umbilicus but has improved Medications: Reviewed: Yes Vitals/I&O/Wt Last Vital Signs Temp 98.1 F 01/28/22 07:36 Pulse 73 01/28/22 07:36 Resp 18 01/28/22 07:36 BP 136/83 01/28/22 07:36 Pulse Ox 96 01/28/22 07:36 O2 Del Method 01/28/22 04:00 01/27/22 01/28/22 01/28/22 22:59 06:59 14:59 Intake Total 465 / 1498.75 1390 / 2888.75 580 / 580 Output Total 250 / 375 300 / 675 Balance 215 / 1123.75 1090 / 2213.75 580 / 580 Physical Exam Narrative: General: No acute distress, awake alert and oriented x3 Abdomen: Soft, nondistended, tender superior to the umbilicus, the umbilicus has mild erythema Data : 01/28/22 05:13 01/28/22 05:13 Micro: Microbiology 01/26/22 05:45 Blood Culture - Preliminary Blood NEGATIVE TO DATE A&P Assessment and plan (1) Abdominal pain: 81-year-old male who was admitted to the hospital with severe abdominal pain. He denies any nausea or vomiting, overall feels a bit better and feels hungry He is hemodynamically stable and the tenderness is localized to the supraumbilical area, there is no significant guarding or rigidity. His white count continues to trend down Abdominal x-ray shows air within the colon with a nonobstructive bowel gas pattern Clear liquid diet N.p.o. after midnight If he has not shown some improvement tomorrow we will need to consider a diagnostic laparoscopy with possible small bowel resection. Status: Acute Attestations Medical Necessity Statement*: Patient requires at least 1 more night in the hospital for treatment of his enteritis. 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
--- NOTE | 2022-01-28 10:26 | PC.SOCIAL ---
IMM update IMM updated with patient and family at bedside. Copy PG 2 provided. Verbalized an understanding. Initialled, dated, timed, and placed in chart.
[2022-01-28 11:09] LABS: Glucose Point of Care 189 mg/dL (70-110)
[2022-01-28] MEDS: heparin 5,000 unit/mL INJ 1 mL 5000 UNIT SUBCUT ×2 (11:18→23:47)
[2022-01-28 11:43] VITALS: BP 132/78; PULSE 71; RESP 18; TEMP 36.8; O2SAT 95
--- NOTE | 2022-01-28 12:53 | P.PN_ITS ---
Subjective Subjective: Patient was seen this morning, he continues to have abdominal pain, not passing gas, not passing flatus, abdomen still a bit distended, he is tolerating the clears well, no nausea, no vomiting, no fevers overnight Vitals/I&O/Wt Last Vital Signs Temp 98.2 F 01/28/22 11:43 Pulse 71 01/28/22 11:43 Resp 18 01/28/22 11:43 BP 132/78 01/28/22 11:43 Pulse Ox 95 01/28/22 11:43 O2 Del Method 01/28/22 11:43 01/27/22 01/28/22 01/28/22 22:59 06:59 14:59 Intake Total 465 / 1498.75 1390 / 2888.75 580 / 580 Output Total 250 / 375 300 / 675 425 / 425 Balance 215 / 1123.75 1090 / 2213.75 155 / 155 Physical Exam Const: COMMON NORMALS: no acute distress and patient oriented x3 Resp: COMMON NORMALS: normal respiratory effort, No retractions, No use of accessory muscles and clear to auscultation bilaterally AUSCULTATION: clear to auscultation bilaterally Cardio: COMMON NORMALS: regular rate, regular rhythm, S1 normal heart sound present and S2 normal heart sound present RATE: regular rate RHYTHM: regular rhythm HEART SOUNDS: S1 normal heart sound present and S2 normal heart sound present GI: OTHER: Abdomen soft, distended, decreased bowel sounds, diffuse tenderness, no guarding, no rebound, no rigidity Extremity: COMMON NORMALS: no pedal edema Neuro: COMMON NORMALS: patient oriented x3 Psych: COMMON NORMALS: mental status grossly normal Data : 01/28/22 05:13 01/28/22 05:13 A&P Assessment and plan (1) Volvulus: Status: Acute (2) Myasthenia gravis: Status: Acute Plan Admit to med/surg - Ct findings 1. Nonspecific segmental wall thickening with mesenteric inflammatory change/free fluid in the anterior mid abdominal region which shows an increased amount of fluid compared with the prior imaging. 2. Short segment intussusception should be included in the differential. Underlying lead point mass cannot be excluded. Short segment bowel with vascular compromise cannot be excluded. 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
--- NOTE | 2022-01-28 13:59 | PC.NURSE ---
patient had large soft/watery bm black in color with no tristan blood also able to pass gas
[2022-01-28 15:39] VITALS: BP 137/75; PULSE 74; RESP 18; TEMP 36.7; O2SAT 97
[2022-01-28 17:12] LABS: Glucose Point of Care 111 mg/dL (70-110)
[2022-01-28 19:46] VITALS: BP 158/75; PULSE 63; RESP 14; TEMP 36.9; O2SAT 97
[2022-01-28 21:10] LABS: Glucose Point of Care 139 mg/dL (70-110)
[2022-01-29] VITALS: BP 141/66; PULSE 69; RESP 13; TEMP 37.1; O2SAT 96
[2022-01-29] MEDS: cefTRIAXone 1,000 MG in sodium chloride 0.9% (plus) 50 ML 100 MG IV (00:53)
[2022-01-29 03:30] LABS: Basophils # 0.1 10^3/uL (0.0-0.1); Basophils % 0.9 %; Eosinophils # 0.2 10^3/uL (0.0-0.8); Eosinophils % 2.6 %; Hematocrit 35.8 % (42.0-52.0); Hemoglobin 12.1 g/dL (11.7-16.6); Lymphocytes # 1.1 10^3/uL (0.8-4.8); Lymphocytes % 14.4 %; Mean Corpuscular HGB Conc 33.8 g/dL (30.0-36.0); Mean Corpuscular Hemoglobin 30.8 pg (28.0-34.0); Mean Corpuscular Volume 91.1 fl (80-94); Mean Platelet Volume 9.4 fL (7.4-10.4); Monocytes # 0.7 10^3/uL (0.2-0.9); Monocytes % 8.7 %; Neutrophils # 5.54 10^3/uL (1.8-7.7); Nucleated Red Blood Cells % 0 %; Platelet Count 156 10^3/cmm (130-400); Red Blood Count 3.93 10^6/uL (4.1-5.3); Red Cell Distribution Width 13.7 % (12.1-15.1); White Blood Count 7.6 10^3/uL (4.0-10.0)
[2022-01-29 03:40] LABS: INR 1.24 (0.8-1.2)
[2022-01-29 03:51] LABS: Lactate (Lactic Acid level) 0.9 mmol/L (0.5-2.2)
[2022-01-29 04:00] VITALS: BP 110/52; PULSE 56; RESP 12; TEMP 36.7; O2SAT 97
[2022-01-29 04:01] LABS: Alanine Aminotransferase 26 U/L (0-41); Albumin Level 2.5 g/dL (3.5-5.2); Alkaline Phosphatase 74 IU/L (40-130); Aspartate Amino Transferase 28 U/L (0-40); Blood Urea Nitrogen 6 mg/dL (8-23); C Reactive Protein 74.3 mg/L (0.0-4.9); Calcium 7.8 mg/dL (8.5-10.5); Carbon Dioxide 25 mmol/L (22-29); Chloride 108 mmol/L (98-107); Glucose 110 mg/dL (65-115); Magnesium 1.9 mg/dL (1.7-2.3); NT Pro B Type Natriuretic Pept 2743 pg/mL (0-450); Osmolality Calculated 290 mOsm/kg (285-295); Phosphorus 2.1 mg/dL (2.5-4.5); Sodium 141 mmol/L (136-145); Total Bilirubin 0.3 mg/dL (0.15-1.2); Total Protein 5.5 g/dL (6.6-8.7)
[2022-01-29] MEDS: metroNIDAZOLE IV 500 MG/100 ML PREMIX 100 MG IV ×3 (06:02→22:46)
[2022-01-29 06:17] LABS: Glucose Point of Care 113 mg/dL (70-110)
[2022-01-29 07:55] VITALS: BP 108/61; PULSE 58; RESP 14; TEMP 36.7; O2SAT 99
[2022-01-29] MEDS: famotidine 20 mg/2 mL INJ IVP ×2 (09:04→22:10)
[2022-01-29] MEDS: pyridostigmine 60 mg Tablet PO ×3 (09:04→20:49)
[2022-01-29] MEDS: FUROsemide 10 mg/mL SDV 4mL 40 MG IVP (09:04)
[2022-01-29] MEDS: sodium chloride 0.9% 1,000 ML 50 ML IV (09:04)
[2022-01-29 11:55] VITALS: BP 112/64; PULSE 62; RESP 14; TEMP 36.6; O2SAT 96
[2022-01-29 12:09] LABS: Glucose Point of Care 124 mg/dL (70-110)
--- NOTE | 2022-01-29 12:26 | PM.PN ---
Subjective Subjective: Patient had 3 bowel movements overnight. His abdominal pain has improved. Denies any nausea or vomiting Vitals/I&O/Wt Last Vital Signs Temp 97.9 F 01/29/22 11:55 Pulse 62 01/29/22 11:55 Resp 14 01/29/22 11:55 BP 112/64 01/29/22 11:55 Pulse Ox 96 01/29/22 11:55 O2 Del Method 01/29/22 11:55 01/28/22 01/29/22 01/29/22 22:59 06:59 14:59 Intake Total 1440 / 2500 150 / 2650 1280 / 1280 Output Total 1050 / 1475 1000 / 2475 250 / 250 Balance 390 / 1025 -850 / 175 1030 / 1030 Physical Exam Narrative: General: No acute distress, awake alert and oriented x3 Abdomen: Soft, nondistended, moderately tender to palpation periumbilically, but improved. The erythema at the umbilicus is improved as well, no guarding rebound or masses Data : 01/29/22 03:23 01/29/22 03:23 A&P Assessment and plan (1) Abdominal pain: 81-year-old male who was admitted to the hospital with severe abdominal pain. He denies any nausea or vomiting, overall feels a bit better and feels hungry He is hemodynamically stable and the tenderness is localized to the supraumbilical area, there is no significant guarding or rigidity. His white count is now normal Abdominal x-ray shows air within the colon with a nonobstructive bowel gas pattern Clear liquid diet He is much improved from yesterday. Therefore we will continue to observe him. 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
[2022-01-29] MEDS: heparin 5,000 unit/mL INJ 1 mL 5000 UNIT SUBCUT (12:43)
--- NOTE | 2022-01-29 13:27 | P.PN_ITS ---
Subjective Subjective: Patient was seen this morning, he denies any fevers, no chills, he did have have a bowel movement, he tells me he had several bowel movements, passing gas, abdomen feels less distended, surgical intervention has been held off, no nausea, vomiting, tolerating clear Vitals/I&O/Wt Last Vital Signs Temp 97.9 F 01/29/22 11:55 Pulse 62 01/29/22 11:55 Resp 14 01/29/22 11:55 BP 112/64 01/29/22 11:55 Pulse Ox 96 01/29/22 11:55 O2 Del Method 01/29/22 11:55 01/28/22 01/29/22 01/29/22 22:59 06:59 14:59 Intake Total 1440 / 2500 150 / 2650 1280 / 1280 Output Total 1050 / 1475 1000 / 2475 950 / 950 Balance 390 / 1025 -850 / 175 330 / 330 Physical Exam Const: COMMON NORMALS: no acute distress and patient oriented x3 Resp: COMMON NORMALS: normal respiratory effort, No retractions, No use of accessory muscles and clear to auscultation bilaterally AUSCULTATION: clear to auscultation bilaterally Cardio: COMMON NORMALS: regular rate, regular rhythm, S1 normal heart sound present and S2 normal heart sound present RATE: regular rate RHYTHM: regular rhythm HEART SOUNDS: S1 normal heart sound present and S2 normal heart sound present GI: OTHER: Abdomen soft, slightly distended, present bowel sounds, no guarding, no rebound, no rigidity Extremity: COMMON NORMALS: no pedal edema Neuro: COMMON NORMALS: patient oriented x3 Psych: COMMON NORMALS: mental status grossly normal Data : 01/29/22 03:23 01/29/22 03:23 A&P Assessment and plan (1) Volvulus: Status: Acute (2) Myasthenia gravis: Status: Acute Plan Admit to med/surg - Ct findings 1. Nonspecific segmental wall thickening with mesenteric inflammatory change/free fluid in the anterior mid abdominal region which shows an increased amount of fluid compared with the prior imaging. 2. Short segment intussusception should be included in the differential. Underlying lead point mass cannot be excluded. Short segment bowel with vascular compromise cannot be excluded. -Has had 3 bowel movements, passing gas, abdominal exam is improved - Concern for bowel ischemia, although felt to be unlikely as lactic acid has improved, elevated lactate 4.2 --> 1.1 after hydration, trend every 24 hours - iv ceftriaxone and iv flagyl for empiric coverage - General surgery consult -Start therapeutic Lovenox for now, for possible surgical invention if required, will switch to Xarelto on discharge, -Currently on clear liquids -Serial abdominal exams -Continue to advance diet as tolerated as per surgery -Stop fluids -1 dose of Lasix Attestations Medical Necessity Statement*: Patient requires hospitalization for severe colitis, Coding Level of Care Code 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 Diagnoses Volvulus K56.2 Myasthenia gravis G70.00
[2022-01-29 14:58] VITALS: BP 116/66; PULSE 63; RESP 18; TEMP 36.6; O2SAT 98
[2022-01-29 17:06] LABS: Glucose Point of Care 104 mg/dL (70-110)
[2022-01-29 20:00] VITALS: BP 144/64; PULSE 74; RESP 17; TEMP 37.1; O2SAT 97
[2022-01-29 21:37] LABS: Glucose Point of Care 155 mg/dL (70-110)
[2022-01-29] MEDS: insulin lispro 100 unit/1 mL SUBCUT (21:57)
[2022-01-30] VITALS: BP 145/70; PULSE 70; RESP 16; TEMP 36.8; O2SAT 96
[2022-01-30] MEDS: cefTRIAXone 1,000 MG in sodium chloride 0.9% (plus) 50 ML 100 MG IV (00:37)
[2022-01-30] MEDS: enoxaparin 60 mg/0.6 mL Syringe SUBCUT ×2 (00:38→12:40)
[2022-01-30 04:00] VITALS: BP 132/64; PULSE 72; RESP 17; TEMP 36.6; O2SAT 96
[2022-01-30 05:23] LABS: Basophils # 0.1 10^3/uL (0.0-0.1); Basophils % 1.1 %; Eosinophils # 0.3 10^3/uL (0.0-0.8); Eosinophils % 4.1 %; Hematocrit 35.6 % (42.0-52.0); Hemoglobin 12.3 g/dL (11.7-16.6); Lymphocytes # 1.1 10^3/uL (0.8-4.8); Lymphocytes % 17.6 %; Mean Corpuscular HGB Conc 34.6 g/dL (30.0-36.0); Mean Corpuscular Hemoglobin 30.2 pg (28.0-34.0); Mean Corpuscular Volume 87.5 fl (80-94); Mean Platelet Volume 9.7 fL (7.4-10.4); Monocytes # 0.5 10^3/uL (0.2-0.9); Monocytes % 8.1 %; Neutrophils % 68.5 %; Nucleated Red Blood Cells % 0 %; Platelet Count 170 10^3/cmm (130-400); Red Blood Count 4.07 10^6/uL (4.1-5.3); Red Cell Distribution Width 13.7 % (12.1-15.1); White Blood Count 6.3 10^3/uL (4.0-10.0)
[2022-01-30 05:58] LABS: Alanine Aminotransferase 30 U/L (0-41); Albumin Level 2.6 g/dL (3.5-5.2); Alkaline Phosphatase 63 IU/L (40-130); Anion Gap 12.4 (5-19); Aspartate Amino Transferase 42 U/L (0-40); Blood Urea Nitrogen 6 mg/dL (8-23); Carbon Dioxide 27 mmol/L (22-29); Chloride 105 mmol/L (98-107); Glucose 102 mg/dL (65-115); NT Pro B Type Natriuretic Pept 1770 pg/mL (0-450); Osmolality Calculated 290 mOsm/kg (285-295); Phosphorus 2.7 mg/dL (2.5-4.5); Potassium 3.4 mmol/L (3.5-5.1); Sodium 141 mmol/L (136-145); Total Bilirubin 0.3 mg/dL (0.15-1.2); Total Protein 5.6 g/dL (6.6-8.7)
[2022-01-30] MEDS: metroNIDAZOLE IV 500 MG/100 ML PREMIX 100 MG IV ×3 (06:03→22:39)
[2022-01-30 06:29] LABS: Glucose Point of Care 119 mg/dL (70-110)
[2022-01-30 08:00] VITALS: BP 146/72; PULSE 60; RESP 16; TEMP 36.8; O2SAT 97
--- NOTE | 2022-01-30 09:33 | PC.SOCIAL ---
IMM update IMM updated with patient. Verbalized an understanding. Copy Pg 2 provided. Initialled, dated, timed, and placed in chart.
[2022-01-30] MEDS: pyridostigmine 60 mg Tablet PO ×3 (09:54→20:52)
[2022-01-30] MEDS: famotidine 20 mg/2 mL INJ IVP ×2 (09:55→22:39)
[2022-01-30 11:03] LABS: Glucose Point of Care 135 mg/dL (70-110)
[2022-01-30 11:44] VITALS: BP 149/78; PULSE 69; RESP 16; TEMP 36.5; O2SAT 99
--- NOTE | 2022-01-30 14:44 | P.PN_ITS ---
Subjective Subjective: Patient feels a lot better today, denies any nausea or vomiting, tolerating clear liquid diet, had bowel movements Medications: Reviewed: Yes Vitals/I&O/Wt Last Vital Signs Temp 97.7 F 01/30/22 11:44 Pulse 69 01/30/22 11:44 Resp 16 01/30/22 11:44 BP 149/78 01/30/22 11:44 Pulse Ox 99 01/30/22 11:44 O2 Del Method 01/30/22 11:44 01/29/22 01/30/22 01/30/22 22:59 06:59 14:59 Intake Total 580 / 2010 150 / 2010 460 / 460 Output Total 250 / 1350 Balance 580 / 660 -100 / 660 460 / 460 Physical Exam Narrative: Abdomen: Soft, nondistended, minimally tender Data : 01/30/22 05:08 01/30/22 05:08 A&P Assessment and plan (1) Abdominal pain: 81-year-old male who was admitted to the hospital with severe abdominal pain. He denies any nausea or vomiting, overall feels a bit better and feels hungry He is hemodynamically stable and the tenderness is localized to the supraumbilical area, there is no significant guarding or rigidity. 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
[2022-01-30 15:57] VITALS: BP 135/73; PULSE 82; RESP 16; TEMP 36.7; O2SAT 96
[2022-01-30 17:15] LABS: Glucose Point of Care 139 mg/dL (70-110)
--- NOTE | 2022-01-30 17:43 | P.PN_ITS ---
Subjective Subjective: He had some pain in his abdomen briefly after eating lunch, but this is resolved. Overall abdominal tenderness is still mildly present, but better compared to admission. No vomiting. Loose stool, which he feels is not diarrhea. Vitals/I&O/Wt Last Vital Signs Temp 98.1 F 01/30/22 15:57 Pulse 82 01/30/22 15:57 Resp 16 01/30/22 15:57 BP 135/73 01/30/22 15:57 Pulse Ox 96 01/30/22 15:57 O2 Del Method 01/30/22 15:57 01/30/22 01/30/22 01/30/22 06:59 14:59 22:59 Intake Total 150 / 2010 460 / 460 700 / 1160 Output Total 250 / 1350 300 / 300 Balance -100 / 660 460 / 460 400 / 860 Physical Exam Const: COMMON NORMALS: patient oriented x3 and alert GENERAL APPEARANCE: cooperative ORIENTATION/CONSCIOUSNESS: Yes awake HENMT: COMMON NORMALS: oropharynx normal Neck/C-Spine: COMMON NORMALS: no JVD Resp: COMMON NORMALS: normal respiratory effort and clear to auscultation bilaterally AUSCULTATION: clear to auscultation bilaterally Cardio: COMMON NORMALS: no JVD, regular rhythm, S1 normal heart sound present, S2 normal heart sound present and No murmurs present (Cardio) RHYTHM: regular rhythm HEART SOUNDS: S1 normal heart sound present and S2 normal heart sound present GI: COMMON NORMALS: Normal to inspection, nondistended, normoactive bowel sounds present and Soft to palpation PALPATION: Yes Soft to palpation and Yes Tenderness to palpation present (GI) Details: other (Mildly) Extremity: COMMON NORMALS: no joint enlargement and no pedal edema Neuro: COMMON NORMALS: patient oriented x3 and moves all extremities SENSORIUM/ORIENTATION: Yes alert Skin: COMMON NORMALS: no rashes or lesions noted GENERAL SKIN EXAM: no rashes or lesions noted Data : 01/30/22 05:08 01/30/22 05:08 Micro: Microbiology 01/25/22 14:53 Blood Culture - Final Blood NO GROWTH AFTER 5 DAYS A&P Assessment and plan (1) Abdominal pain: Trial of liquid diet today. Consideration of possible discharge home tomorrow with completion of antibiotic course. Discussed with lab, C diff pending Status: Acute (2) Volvulus: Questionable finding of possible intussusception on presentation. At this time does not appear to have any signs of obstruction. No vomiting. Having bowel movements. No blood in stool or black stools. Abdominal tenderness has been improving. Discussed with him to let us know in case of any change in his symptoms. Status: Acute (3) Myasthenia gravis: Status: Acute Attestations Medical Necessity Statement*: Continue admission for assessment management of enteritis, in a gentleman with history of C diff and recent antibiotics, possible intussusseption segment on imaging. 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
[2022-01-30 20:00] VITALS: BP 131/69; PULSE 70; RESP 17; TEMP 36.8; O2SAT 97
[2022-01-30 20:39] LABS: Glucose Point of Care 163 mg/dL (70-110)
[2022-01-30] MEDS: insulin lispro 100 unit/1 mL SUBCUT (20:52)
[2022-01-31] VITALS: BP 117/63; PULSE 65; RESP 17; TEMP 37.3; O2SAT 97
[2022-01-31] MEDS: cefTRIAXone 1,000 MG in sodium chloride 0.9% (plus) 50 ML 100 MG IV (00:01)
[2022-01-31] MEDS: enoxaparin 60 mg/0.6 mL Syringe SUBCUT (00:01)
[2022-01-31 04:00] VITALS: BP 141/69; PULSE 59; RESP 17; TEMP 37.4; O2SAT 97
[2022-01-31 05:52] LABS: Basophils # 0.1 10^3/uL (0.0-0.1); Basophils % 1.2 %; Eosinophils # 0.2 10^3/uL (0.0-0.8); Eosinophils % 3.4 %; Hematocrit 39.6 % (42.0-52.0); Hemoglobin 13.1 g/dL (11.7-16.6); Lymphocytes # 1.6 10^3/uL (0.8-4.8); Lymphocytes % 23.3 %; Mean Corpuscular HGB Conc 33.1 g/dL (30.0-36.0); Mean Corpuscular Hemoglobin 30.2 pg (28.0-34.0); Mean Corpuscular Volume 91.2 fl (80-94); Mean Platelet Volume 9.7 fL (7.4-10.4); Monocytes # 0.6 10^3/uL (0.2-0.9); Monocytes % 8.2 %; Neutrophils # 4.27 10^3/uL (1.8-7.7); Neutrophils % 63.3 %; Nucleated Red Blood Cells % 0 %; Platelet Count 195 10^3/cmm (130-400); Red Blood Count 4.34 10^6/uL (4.1-5.3); Red Cell Distribution Width 13.8 % (12.1-15.1); White Blood Count 6.7 10^3/uL (4.0-10.0)
[2022-01-31] MEDS: metroNIDAZOLE IV 500 MG/100 ML PREMIX 100 MG IV (06:23)
[2022-01-31 06:26] LABS: Alanine Aminotransferase 36 U/L (0-41); Albumin Level 2.7 g/dL (3.5-5.2); Alkaline Phosphatase 69 IU/L (40-130); Aspartate Amino Transferase 55 U/L (0-40); Blood Urea Nitrogen 5 mg/dL (8-23); Calcium 8.7 mg/dL (8.5-10.5); Carbon Dioxide 27 mmol/L (22-29); Chloride 108 mmol/L (98-107); Globulin 3.3 g/dL (1.3-4.6); Glucose 103 mg/dL (65-115); Magnesium 1.9 mg/dL (1.7-2.3); NT Pro B Type Natriuretic Pept 1484 pg/mL (0-450); Osmolality Calculated 298 mOsm/kg (285-295); Sodium 145 mmol/L (136-145); Total Bilirubin 0.3 mg/dL (0.15-1.2)
[2022-01-31 06:51] LABS: Glucose Point of Care 124 mg/dL (70-110)
[2022-01-31 07:54] VITALS: BP 145/74; PULSE 67; RESP 15; TEMP 36.8; O2SAT 96
[2022-01-31] MEDS: pyridostigmine 60 mg Tablet PO (08:55)
[2022-01-31] MEDS: famotidine 20 mg/2 mL INJ IVP (10:16)
[2022-01-31 11:32] LABS: Glucose Point of Care 186 mg/dL (70-110)
[2022-01-31 11:48] VITALS: BP 131/71; PULSE 72; RESP 15; TEMP 36.6; O2SAT 97
--- NOTE | 2022-01-31 12:25 | P.DS_ITS ---
Discharge Providers Date of Admission: 01/25/22 20:14 Date of Discharge: January 31, 2022 Attending Provider at Admission: Anju Abel MD Attending Provider at Discharge: Jeanmarie Wilder Diagnoses at Discharge Discharge Diagnosis (1) Abdominal pain: (2) Volvulus: Status: Acute (3) Myasthenia gravis: Status: Acute Reason for Visit Reason for Visit: abd pain Hospital Course Hospital Course Pleasant 81-year-old gentleman with recent hospitalization after presenting with possible sepsis, likely secondary to periodontal disease after recent dental procedures, with resolution of symptoms with antibiotic therapy, also with incidentally noted bradycardia due to which beta-blockers were discontinued, after discharge on 01/20 return to the hospital on 01/25 due to abdominal pain, diarrhea, although has been using laxatives. He has had history of C. difficile colitis in the past. C. difficile PCR was checked and was negative. CT angiogram of abdomen pelvis on presentation also showed segmental thickening with mesenteric inflammation and possible short segment intussusception. Short segment bowel with vascular compromise could not be excluded. He was assessed by surgery, not found to have need for surgical intervention. Symptoms gradually improved with conservative management, and empirically treated with ceftriaxone and Flagyl. His symptoms of abdominal pain, enteritis significantly improved. He has been tolerating clear liquids. Today denies abdominal pain, minimal tenderness on palpation. He has been having bowel movements. Has not had any vomiting. From surgical perspective okay for discharge today, will complete empiric antibiotic course with Cipro and Flagyl. He is asked to follow-up in office. He should keep his prior appointments for reassessment with his dentist for peridental disease and tooth extraction. Physical Exam Const: COMMON NORMALS: patient oriented x3 and alert GENERAL APPEARANCE: cooperative ORIENTATION/CONSCIOUSNESS: Yes awake HENMT: COMMON NORMALS: oropharynx normal Neck/C-Spine: COMMON NORMALS: no JVD Resp: COMMON NORMALS: normal respiratory effort and clear to auscultation bilaterally AUSCULTATION: clear to auscultation bilaterally Cardio: COMMON NORMALS: no JVD, regular rhythm, S1 normal heart sound present, S2 normal heart sound present and No murmurs present (Cardio) RHYTHM: regular rhythm HEART SOUNDS: S1 normal heart sound present and S2 normal heart sound present GI: COMMON NORMALS: Normal to inspection, nondistended, normoactive bowel sounds present, Soft to palpation and non-tender PALPATION: Yes Soft to palpation Extremity: COMMON NORMALS: no joint enlargement and no pedal edema Neuro: COMMON NORMALS: patient oriented x3 and moves all extremities SENSORIUM/ORIENTATION: Yes alert Skin: COMMON NORMALS: no rashes or lesions noted GENERAL SKIN EXAM: no rashes or lesions noted Discharge Data Studies Completed and Pending Completed Studies During Hospitalization Category Date Time Status CT abdomen pelvis wo con [id number] Stat Cat Scan 01/25/22 12:40 Completed CTA abdomen [CT angio abdomen [id number]] Stat Cat Scan 01/25/22 15:24 Completed XR KUB portable [id number] Routine Exams 01/26/22 12:06 Completed XR KUB portable [id number] Routine Exams 01/28/22 08:14 Completed XR abdomen min 2V [id number] Routine Exams 01/27/22 06:00 Completed XR chest 1V portable [id number] Routine Exams 01/25/22 21:47 Completed Pending at discharge Category Date Time Status Complete Blood Count w/Auto AM LABS Lab 02/01/22 04:00 Ordered Comprehensive Metabolic Panel AM LABS Lab 02/01/22 04:00 Ordered Magnesium AM LABS Lab 02/01/22 04:00 Ordered NT Pro B Type Natriuretic Pept QAM Lab 02/01/22 06:00 Ordered Phosphorus AM LABS Lab 02/01/22 04:00 Ordered Radiology Impressions Abdomen/Pelvis CT 01/25/22 12:40 IMPRESSION: 1. There is mild constipation and fluid retention throughout the colon. No obstruction. 2. Prior appendectomy. 3. Mild asymmetric thickening of the bladder wall was described also on the prior study from 08/10/2021 without change. 4. Large LEFT renal cyst. 5. Prior cholecystectomy. 6. No renal obstruction. 7. Fat-containing LEFT inguinal hernia. ADDENDUM: 01/25/22 1526 IMPRESSION: Focal short segment loop of ischemic small bowel in the central abdomen just above the umbilicus with pneumatosis. No free air is identified. Volvulus-like appearance of a very short segment small bowel loop. Surgical consultation necessary. Notified Maxim Louis DO at 01/25/2022 3:19 PM. Abdomen CTA 01/25/22 15:24 IMPRESSION: 1. Nonspecific segmental wall thickening with mesenteric inflammatory change/free fluid in the anterior mid abdominal region which shows an increased amount of fluid compared with the prior imaging. 2. Short segment intussusception should be included in the differential. Underlying lead point mass cannot be excluded. Short segment bowel with vascular compromise cannot be excluded. Chest X-Ray 01/25/22 21:47 IMPRESSION: No focal acute pulmonary disease. Abdomen X-Ray 01/27/22 06:00 IMPRESSION: Nonobstructive bowel gas pattern. KUB X-Ray 01/28/22 08:14 IMPRESSION: Nonobstructive bowel gas pattern. Laboratory Results WBC 6.7 10^3/uL (4.0-10.0) 01/31/22 05:30 RBC 4.34 10^6/uL (4.1-5.3) 01/31/22 05:30 Hgb 13.1 g/dL (11.7-16.6) 01/31/22 05:30 Hct 39.6 % (42.0-52.0) L 01/31/22 05:30 MCV 91.2 fl (80-94) 01/31/22 05:30 MCH 30.2 pg (28.0-34.0) 01/31/22 05:30 MCHC 33.1 g/dL (30.0-36.0) 01/31/22 05:30 RDW 13.8 % (12.1-15.1) 01/31/22 05:30 Plt Count 195 10^3/cmm (130-400) 01/31/22 05:30 MPV 9.7 fL (7.4-10.4) 01/31/22 05:30 Neut % (Auto) 63.3 % 01/31/22 05:30 Lymph % (Auto) 23.3 % 01/31/22 05:30 Catron % (Auto) 8.2 % 01/31/22 05:30 Eos % (Auto) 3.4 % 01/31/22 05:30 Baso % (Auto) 1.2 % 01/31/22 05:30 Neut # (Auto) 4.27 10^3/uL (1.8-7.7) 01/31/22 05:30 Lymph # (Auto) 1.6 10^3/uL (0.8-4.8) 01/31/22 05:30 Catron # (Auto) 0.6 10^3/uL (0.2-0.9) 01/31/22 05:30 Eos # (Auto) 0.2 10^3/uL (0.0-0.8) 01/31/22 05:30 Baso # (Auto) 0.1 10^3/uL (0.0-0.1) 01/31/22 05:30 Nucleated RBC % (auto) 0 % 01/31/22 05:30 Nucleated RBCs # 0.0 /100WBC 01/31/22 05:30 PT 15.90 SECONDS (12.1-14.9) H 01/29/22 03:23 INR 1.24 (0.8-1.2) H 01/29/22 03:23 Sodium 145 mmol/L (136-145) 01/31/22 05:30 Potassium 4.0 mmol/L (3.5-5.1) 01/31/22 05:30 Chloride 108 mmol/L (98-107) H 01/31/22 05:30 Carbon Dioxide 27 mmol/L (22-29) 01/31/22 05:30 Anion Gap 14.0 (5-19) 01/31/22 05:30 BUN 5 mg/dL (8-23) L 01/31/22 05:30 Creatinine 0.7 mg/dL (0.7-1.2) 01/31/22 05:30 GFR Calculation Not Reportable 01/31/22 05:30 Glucose 103 mg/dL (65-115) 01/31/22 05:30 POC Glucose 186 mg/dL (70-110) H 01/31/22 10:45 Calculated Osmolality 298 mOsm/kg (285-295) H 01/31/22 05:30 Lactic Acid 0.9 mmol/L (0.5-2.2) 01/26/22 19:20 Lactate 0.9 mmol/L (0.5-2.2) 01/29/22 03:23 Calcium 8.7 mg/dL (8.5-10.5) 01/31/22 05:30 Phosphorus 3.0 mg/dL (2.5-4.5) 01/31/22 05:30 Magnesium 1.9 mg/dL (1.7-2.3) 01/31/22 05:30 Total Bilirubin 0.3 mg/dL (0.15-1.2) 01/31/22 05:30 AST 55 U/L (0-40) H 01/31/22 05:30 ALT 36 U/L (0-41) 01/31/22 05:30 Alkaline Phosphatase 69 IU/L (40-130) 01/31/22 05:30 C-Reactive Protein 74.3 mg/L (0.0-4.9) H 01/29/22 03:23 NT-Pro-B Natriuret Pep 1484 pg/mL (0-450) H 01/31/22 05:30 NT-Pro-B Natriuret Pep Cancelled 01/31/22 05:30 Total Protein 6.0 g/dL (6.6-8.7) L 01/31/22 05:30 Albumin 2.7 g/dL (3.5-5.2) L 01/31/22 05:30 Globulin 3.3 g/dL (1.3-4.6) 01/31/22 05:30 Lipase 87 U/L (13-60) H 01/25/22 12:45 Procalcitonin 0.28 ng/mL (0-0.5) 01/26/22 05:45 Urine Color Dark yellow (Yellow) 01/25/22 14:15 Urine Appearance Clear (CLEAR) 01/25/22 14:15 Urine pH 7 (5-7) 01/25/22 14:15 Ur Specific [place] 1.010 (1.005-1.030) 01/25/22 14:15 Urine Protein Neg (Negative) 01/25/22 14:15 Urine Glucose (UA) Norm (Normal) 01/25/22 14:15 Urine Ketones 1+ (Negative) H 01/25/22 14:15 Urine Blood 2+ (Negative) H 01/25/22 14:15 Urine Nitrate Negative (Negative) 01/25/22 14:15 Urine Bilirubin Neg (Negative) 01/25/22 14:15 Urine Urobilinogen Norm mg/dL (Negative) 01/25/22 14:15 Ur Leukocyte Esterase Trace (Negative) H 01/25/22 14:15 Urine RBC 0-4 /hpf (0-2) H 01/25/22 14:15 Urine WBC 0-4 /hpf (0-5) H 01/25/22 14:15 Ur Squamous Epith Cells None /hpf (0-5) 01/25/22 14:15 Amorphous Sediment Not Reportable 01/25/22 14:15 Urine Bacteria None /hpf (NONE) 01/25/22 14:15 Urine Mucus N /hpf 01/25/22 14:15 Vitals Last Vital Signs Temp 97.9 F 01/31/22 11:48 Pulse 72 01/31/22 11:48 Resp 15 01/31/22 11:48 BP 131/71 01/31/22 11:48 Pulse Ox 97 01/31/22 11:48 O2 Del Method 01/31/22 11:48 Discharge Plan Discharge Patient Disposition: Home Condition: Stable Prescriptions: New metronidazole 500 mg tablet 500 mg PO Q8H 5 Days Qty: 15 0RF ciprofloxacin HCl 500 mg tablet 500 mg PO BID Qty: 10 0RF Continued Levemir FlexTouch U-100 Insuln 100 unit/mL (3 mL) insulin pen 18 unit SUBCUT BEDTIME pyridostigmine bromide 60 mg tablet 60 mg PO TID multivitamin Tablet 1 tab PO DAILY simvastatin 40 mg tablet 40 mg PO BEDTIME ramipril 5 mg capsule 5 mg PO DAILY rivaroxaban 20 mg tablet 20 mg PO BEDTIME Rx Instructions: must administer with evening meal insulin aspart U-100 [Novolog U-100 Insulin aspart] 100 unit/mL solution See Rx Instructions .ROUTE .COMPLEX Rx Instructions: per sliding scale chlorhexidine gluconate 0.12 % mouthwash 15 ml PO BID acetaminophen [Tylenol] 325 mg Capsule 325 mg PO QID PRN (Reason: Pain) Discharge Orders: Discharge Order (Routine); Ordered 01/31/22 Ordered By: Jeanmarie Wilder Referrals: Primary, doctor [Other] - 4-7 days Jerry Cardona MD [Physician] - 1 week Discharge Diet: Advance as tolerated, Diabetic and Full LIquid Discharge Activity: Increase activity as tolerated Activity Restrictions/Additional Instructions: If he continues to do well with liquid diet, advance gradually to soft diet and then your usual consistency diet. Please follow-up with your dentist to plan for tooth extraction. Discharge Attestations Time Spent in Discharge Care*: greater than 30 min Quality Metrics Clinical Quality Measures [ No reported AMI, CVA or VTE this stay] Coding Level of Care Code Acute Chg FW DC note Diagnoses Abdominal pain R10.9 Volvulus K56.2 Myasthenia gravis G70.00
[2022-01-31] MEDS: insulin lispro 100 unit/1 mL SUBCUT (13:08)
--- NOTE | 2022-01-31 13:36 | PM.PN ---
Subjective Subjective: Patient denies significant abdominal pain, nausea, vomiting, had a bowel movement. Medications: Reviewed: Yes Vitals/I&O/Wt Last Vital Signs Temp 97.9 F 01/31/22 11:48 Pulse 72 01/31/22 11:48 Resp 15 01/31/22 11:48 BP 131/71 01/31/22 11:48 Pulse Ox 97 01/31/22 11:48 O2 Del Method 01/31/22 11:48 01/30/22 01/31/22 01/31/22 22:59 06:59 14:59 Intake Total 820 / 1430 150 / 1430 340 / 340 Output Total 625 / 1175 550 / 1175 Balance 195 / 255 -400 / 255 340 / 340 Physical Exam Narrative: Abdomen: soft, NT, ND Data : 01/31/22 05:30 01/31/22 05:30 Micro: Microbiology 01/26/22 05:45 Blood Culture - Final Blood NO GROWTH AFTER 5 DAYS 01/30/22 10:58 C.difficile Toxin B Gene (PCR) - Final Stool Routine Collection 01/25/22 14:53 Blood Culture - Final Blood NO GROWTH AFTER 5 DAYS A&P Assessment and plan (1) Abdominal pain: Patient doing well , keen to go home Advance diet as tolerated C diff: neg Dc/ home on 5 more days of oral abx F/u PRN (2) Myasthenia gravis: Status: Acute Attestations Medical Necessity Statement*: as per primary Coding Level of Care Code Acute [employer] [facility] Erika Diagnoses Abdominal pain R10.9 Myasthenia gravis G70.00
[2022-01-31 13:54] VITALS: BP 131/71; PULSE 72; RESP 15; TEMP 36.6; O2SAT 97
== END 2022-01-31 13:55 | disposition home or self-care (01) | DRG 390 ==
LOC: ER 19:03 → MEDSURG 20:23
PROVIDERS: Emergency Medicine; Family Medicine; Admitting Provider Student in an Organized Health Care Education/Training Program; Emergency Provider Emergency Medicine; Visit Provider Internal Medicine
DX: K56.2 Volvulus (principal); G70.00 Myasthenia gravis without (acute) exacerbation; K52.9 Noninfective gastroenteritis and colitis, unspecified; E11.9 Type 2 diabetes mellitus without complications; I50.9 Heart failure, unspecified
CPT/HCPCS: 36415; 36416; 71045; 74018; 74019; 74175; 74176; 80053; 81001; 82962; 83605; 83690; 83735; 83880; 84100; 84145; 85025; 85610; 86140; 87040; 87493; 93005; 96365; 96367; 96372; 96375; 96376; 99285; J0696; J0744; J1644; J1650; J1815; J1940; J2270; J2405; J3490; J7030; Q9967; S0030

== ENCOUNTER → 2022-02-07 08:31 | Outpatient (BNVA) | payer MEDICARE, SELFPAY | PROVIDERS: Visit Provider Surgery | DX: R10.9 Unspecified abdominal pain (principal) | CPT/HCPCS: 99214 ==

== ENCOUNTER → 2022-03-27 12:26 | Outpatient (BNVA) | payer MEDICARE, SELFPAY | PROVIDERS: Visit Provider Nurse Practitioner Family | DX: Z20.822 Contact with and (suspected) exposure to COVID-19 (principal) | CPT/HCPCS: 87426 ==

== ENCOUNTER → 2022-04-20 15:04 | Outpatient (BNVA) | payer MEDICARE, SELFPAY | PROVIDERS: PCP Family Medicine; Visit Provider Family Medicine | DX: E11.9 Type 2 diabetes mellitus without complications (principal); I50.9 Heart failure, unspecified; Z13.220 Encounter for screening for lipoid disorders; Z13.6 Encounter for screening for cardiovascular disorders; Z23 Encounter for immunization | CPT/HCPCS: 80053; 80061; 83036 ==

== ENCOUNTER → 2022-08-08 11:41 | Outpatient (BNVA) | payer MEDICARE, SELFPAY | PROVIDERS: PCP Family Medicine; Visit Provider Family Medicine | DX: R30.0 Dysuria (principal); E11.9 Type 2 diabetes mellitus without complications; I50.9 Heart failure, unspecified; R50.9 Fever, unspecified | CPT/HCPCS: 80053; 81000; 83036; 85025; 87086 ==

== ENCOUNTER → 2022-08-15 12:42 | Outpatient (BNVA) | payer MEDICARE, SELFPAY | PROVIDERS: PCP Family Medicine; Visit Provider Surgery | DX: R13.10 Dysphagia, unspecified (principal) | CPT/HCPCS: 99203 ==

== ENCOUNTER 2022-08-25 06:03 | Day surgery (SDC) | payer MEDICARE, SELFPAY ==
[2022-08-23 10:29] VITALS: BMI 21.2
[2022-08-25] MEDS: sodium chloride 0.9% 1,000 ML 30 ML IV (06:27)
[2022-08-25 06:29] VITALS: BP 164/79; PULSE 62; RESP 18; TEMP 36.1; O2SAT 96
[2022-08-25 06:44] LABS: Glucose Point of Care 151 mg/dL (70-110)
--- NOTE | 2022-08-25 07:16 | ANES.PREANE2 ---
Pre-Anesthetic Assessment Height/Weight: Height 1.73 m Weight 63.503 kg Temp Pulse Resp BP Pulse Ox O2 Del Method 97.0 F L 62 18 164/79 96 08/25/22 06:29 08/25/22 06:29 08/25/22 06:29 08/25/22 06:29 08/25/22 06:29 08/25/22 06:29 Preop Diagnosis: dysphagia Operation Date: 08/25/22 08:00 Proposed Procedures p EGD Dilation W/ Balloon 98163 EGD w/ ball dial , R13.10(Not Applicable) - Jeffery Arroyo DO Familial anesthetic complications: none Was Beta Demarcus taken within 24 hours: Yes Was Clonidine taken within 24 hours: N/A Last intake: Intake Last Liquid Date 08/24/22 Last Liquid Time 19:00 Last Solid Date 08/24/22 Last Solid Time 19:00 Last Intake: 19:00 Social No alcohol and No tobacco Exam alert, oriented x 3, clear to auscultation bilaterally and regular rate & rhythm Airway Submandibular: within normal limits Cervical ROM: within normal limits Mallampati: Class II Dentition: full Pulmonary None reported CV/HEM Congestive Heart Failure Chronic Renal Insufficiency Hepatic None reported GI Gastroesophageal Reflux Disease Metabolic Diabetes Mellitus Musc/skel Lower Back Pain myasthenia gravis Neuropsych None reported Anesthetic Plan ASA status: 3 Anesthesia: MAC Risk of > 500 ml blood loss (7ml/kg in children): No Medications/Allergies Home Medications Medication Instructions Recorded Confirmed Last Taken Type insulin aspart U-100 100 unit/mL See Rx Instructions .Route .COMPLEX 09/02/21 08/25/22 08/24/22 History subcutaneous solution (Novolog U-100 Insulin aspart) insulin detemir U-100 100 unit/mL 18 unit SUBCUT BEDTIME 09/02/21 08/25/22 08/24/22 History (3 mL) subcutaneous pen (Levemir FlexTouch U-100 Insulin) multivitamin 1 tab PO DAILY 09/02/21 08/25/22 08/24/22 History pyridostigmine bromide 60 mg 60 mg PO TID 09/02/21 08/25/22 08/24/22 History tablet (Mestinon) acetaminophen 325 mg capsule 325 mg PO QID PRN Fever 01/17/22 08/25/22 08/24/22 History (Tylenol) acyclovir 200 mg capsule 200 mg PO DAILY 04/20/22 08/25/22 08/24/22 History simvastatin 40 mg tablet 40 mg PO BEDTIME 90 days #90 tabs 04/23/22 08/25/22 08/24/22 Rx pantoprazole 20 mg tablet,delayed 20 mg PO DAILY 90 days #90 tabs 08/08/22 08/25/22 08/24/22 Rx release propranolol 10 mg tablet 10 mg PO BID PRN tremor 30 days 08/08/22 08/25/22 08/24/22 Rx #60 tabs clotrimazole-betamethasone 1 1 applic topical BID 2 weeks #45 08/14/22 08/25/22 08/24/22 Rx %-0.05 % topical cream grams blood sugar diagnostic (True #10 ea 08/15/22 08/25/22 08/24/22 History Metrix Glucose Test Strip) lancets 33 gauge (TRUEplus Lancets) #100 ea 08/15/22 08/25/22 08/24/22 History pen needle, diabetic 32 gauge x #50 ea 08/15/22 08/25/22 08/24/22 History 5/32 (Droplet Pen Needle) rivaroxaban 20 mg tablet (Xarelto) 20 mg PO BEDTIME 08/23/22 08/25/22 08/22/22 History Allergies Allergy/AdvReac Type Severity Reaction Status Date / Time Penicillins Allergy ALGY-Hives Verified 08/23/22 10:23 Current Medications Generic Name Dose Route Start Last Admin Trade Name Freq PRN Reason Stop Dose Admin Sodium Chloride 1,000 mls @ 30 mls/hr 08/24/22 14:15 08/25/22 06:27 Sodium Chloride 0.9% IV 08/25/22 14:14 30 mls/hr .Q24H BING Administration PFSH Anesthesia Medical History C. difficile colitis Diabetes mellitus Dysphagia Myasthenia gravis Periodontal disease Sinus bradycardia Surgical History Hx of appendectomy Hx of cholecystectomy Family History Father , AT 73 Heart disease Mother , AT 64 Diabetes Social History Smoking and tobacco status: never smoked Alcohol intake: never Marital status: Current occupational status: retired and disabled History of recent travel: No Data Anesthesia Cardiac Studies: No Data to Display
--- NOTE | 2022-08-25 08:04 | W.PM.OPSUD ---
Surgery/Procedure H&P Update DATE OF PROCEDURE: August 25, 2022 DATE H&P PERFORMED: 08/15/22 H&P UPDATE INFORMATION: I have reviewed H&P completed within last 30 days, I have examined patient prior to procedure and No changes to prior documentation PREOP DIAGNOSIS: dysphagia PLANNED PROCEDURE: Operation Date: 08/25/22 08:00 Proposed Procedures p EGD Dilation W/ Balloon 48259 EGD w/ ele bravo , R13.10(Not Applicable) - Jeffery Arroyo DO
[2022-08-25 08:28] VITALS: BP 126/71; PULSE 77; RESP 18; TEMP 36.1; O2SAT 96
[2022-08-25 08:38] VITALS: BP 119/71; PULSE 74; RESP 18; O2SAT 99
--- NOTE | 2022-08-25 17:58 | ANE.PACU2 ---
Inpatient post-anesthesia follow up: Airway intact: Yes Vital signs: Temperature 97.0 F Pulse Rate 74 Respiratory Rate 18 Blood Pressure 119/71 Pulse Oximetry 99 Oxygen Delivery Me thod Nasal Cannula Oxygen Flow Rate 2 Fraction of Inspir ed Oxygen Hydration adequate: Yes Nausea and vomiting: No Pain level: 1 Mental status: Baseline
== END 2022-08-25 09:03 | disposition home or self-care (01) ==
PROVIDERS: PCP Family Medicine; Visit Provider Surgery
DX: R13.10 Dysphagia, unspecified (principal); K22.2 Esophageal obstruction; K29.80 Duodenitis without bleeding; K29.50 Unspecified chronic gastritis without bleeding; B96.81 Helicobacter pylori [H. pylori] as the cause of diseases classified elsewhere; I50.9 Heart failure, unspecified; K21.9 Gastro-esophageal reflux disease without esophagitis; E11.9 Type 2 diabetes mellitus without complications; Z79.4 Long term (current) use of insulin
CPT/HCPCS: 36416; 43239; 43249; 82962; 88305; 88342; J2704; J7030

== ENCOUNTER → 2022-09-06 17:28 | Outpatient (BNVA) | payer MEDICARE, SELFPAY | PROVIDERS: PCP Family Medicine; Visit Provider Surgery | DX: Z09 Encounter for follow-up examination after completed treatment for conditions other than malignant neoplasm (principal) | CPT/HCPCS: 99024; 99212 ==

== ENCOUNTER → 2022-11-13 14:48 | Outpatient (BNVA) | payer MEDICARE, SELFPAY | PROVIDERS: PCP Family Medicine; Visit Provider Nurse Practitioner Family | DX: J02.9 Acute pharyngitis, unspecified (principal) | CPT/HCPCS: 87071; 87880 ==

== ENCOUNTER → 2022-12-08 09:39 | Outpatient (BNVA) | payer MEDICARE, SELFPAY | PROVIDERS: PCP Family Medicine; Visit Provider Otolaryngology | DX: R49.0 Dysphonia (principal); J38.01 Paralysis of vocal cords and larynx, unilateral; G70.00 Myasthenia gravis without (acute) exacerbation; J34.2 Deviated nasal septum; M27.0 Developmental disorders of jaws | CPT/HCPCS: 31575; 99205 ==

== ENCOUNTER → 2022-12-12 12:05 | Outpatient (BNVA) | payer MEDICARE, SELFPAY | PROVIDERS: PCP Family Medicine; Visit Provider Family Medicine | DX: J18.9 Pneumonia, unspecified organism (principal); J84.112 Idiopathic pulmonary fibrosis | CPT/HCPCS: 71046 ==

== ENCOUNTER 2022-12-22 09:20 | Outpatient (CLI) | payer MEDICARE, SELFPAY ==
[2022-12-22] MEDS: iohexol 350 mg/mL 500 mL Btl (per mL) IV (09:26)
--- NOTE | 2022-12-22 09:30 | CT_ITS ---
WS: [id number] CT HEAD TECHNIQUE: Noncontrast and contrast-enhanced CT of the head. CLINICAL INFORMATION: R49.0 - Dysphonia COMPARISON: None. DLP: 2690.[address] scans at [facility] use at least one of these dose optimization techniques: automated e xposure control; mA and/or kV adjustment per patient size (includes targeted exams where dose is matc hed to clinical indication); or iterative reconstruction. FINDINGS: No evidence of an intracranial hemorrhage or mass effect. Ventricular system and basal cisterns are p atent. Moderate small vessel changes. Moderate parenchymal volume loss. No hydrocephalus. Intracrania l vascular calcification. Tiny chronic lacunar infarct LEFT caudate. No abnormal intracranial enhancement. Fluid and mild mucosal thickening ethmoid air cells and frontal ethmoidal recesses. Mastoid air cells are well aerated. Normal posterior nasopharynx. CT/CT head wo/w con [id number] IMPRESSION: 1. No evidence of intracranial hemorrhage or mass effect. 2. Moderate small vessel changes with moderate parenchymal volume loss. 3. No abnormal intracranial enhancement. 4. Mild ethmoid sinusitis
--- NOTE | 2022-12-22 10:00 | CT_ITS ---
WS: [id number] CT NECK TECHNIQUE: Contrast-enhanced CT of the neck with coronal and sagittal reformatted images. CLINICAL INFORMATION: evaulation of vocal cord paralysis COMPARISON: None. DLP: 2690.[address] scans at [facility] use at least one of these dose optimization techniques: automated e xposure control; mA and/or kV adjustment per patient size (includes targeted exams where dose is matc hed to clinical indication); or iterative reconstruction. FINDINGS: Lung apices are well aerated. Fibrosis LEFT greater than RIGHT lung apex. Normal thyroid gland. Aorti c calcification. Mastoid air cells appear well aerated. Normal posterior nasopharynx. Normal paraphar yngeal fat. Dental artifact degrades some images at the tongue base. No evidence of supraglottic or glottic mass. Normal Subglottic airway. Medial deviation of the LEFT t rue vocal cord with rotation of the arytenoid suspicious for LEFT vocal cord paralysis. Normal saliva ry glands. Mild spondylitic changes cervical spine. No cervical lymphadenopathy. CT/CT neck w con* [id number] IMPRESSION: 1. 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 Recommend endoscopy correlation. 2. No evidence of supraglottic or glottic mass. Normal posterior nasopharynx. 3. No cervical lymphadenopathy. 4. Normal salivary glands.
--- NOTE | 2022-12-22 10:30 | CT_ITS ---
WS: [id number] CT chest w con* [id number] HISTORY: evaluation of vocal cord paralysis TECHNIQUE: Axial imaging performed through the thorax. Coronal and sagittal reformats are submitted. All CT scans at [facility] use at least one of these dose optimization techniques: automated exposure control; mA and/or kV adjustment per patient size (includes targeted exams where dose is mat ched to clinical indication); or iterative reconstruction. CONTRAST: Omnipaque 350; 100 mL IV. DLP: 2690.36 mGy.cm COMPARISON: Chest radiograph 12/12/2022 Lungs and central airway: Chronic interstitial thickening throughout both lungs. Bronchiectasis versu s subpleural cysts associated with emphysema at the RIGHT lung base. Subpleural opacification in the posterior LEFT apex measuring 5 x 11 mm. There are a a few scattered granulomata. Pleura: Normal. No pleural effusion. Heart and pericardium: Normal size heart with no pericardial effusion. Mediastinum and jono: No adenopathy of any significance. There are a few lymph nodes in the AP window and along the trachea. No significant adenopathy. No mass abutting the recurrent laryngeal nerve pat hway is evident. There are a few small hilar lymph nodes with the largest 11 mm on the RIGHT. Vessels: Moderate atherosclerosis aorta. Normal size pulmonary artery. Chest wall and lower neck: No soft tissue masses. Upper abdomen: Prior cholecystectomy. Osseous structures: No destructive process. CT/CT chest w con* [id number] IMPRESSION: 1. No mediastinal or paratracheal mass identified. 2. Mild pulmonary interstitial lung disease. Mild honeycombing versus subpleur al cysts associated with emphysema at the RIGHT lung base. 3. Focal irregular opacification in the posterior LEFT upper lobe measures 5 x 11 mm. Most likely a focal scar. This can be followed up in 3 months by noncon trast chest CT. 4. Prior cholecystectomy.
== END 2022-12-22 09:21 | disposition home or self-care (01) ==
PROVIDERS: PCP Family Medicine; Visit Provider Otolaryngology
DX: J38.01 Paralysis of vocal cords and larynx, unilateral (principal); R49.0 Dysphonia; J43.9 Emphysema, unspecified
CPT/HCPCS: 70470; 70491; 71260; Q9967

== ENCOUNTER 2022-12-25 15:51 | Emergency (ER) | payer MEDICARE, SELFPAY ==
[2022-12-25 15:54] VITALS: BP 134/78; PULSE 71; RESP 16; TEMP 36.9; O2SAT 98; BMI 20.3
--- NOTE | 2022-12-25 16:00 | XR_ITS ---
WS: [email or web address] CHEST XRAY TECHNIQUE: Portable chest. CLINICAL INFORMATION: dyspnea/cough COMPARISON: December 12, 2022 FINDINGS: Heart: Cardiomegaly. Aortic calcification. Lungs: Advanced chronic emphysematous changes. Fibrotic opacity RIGHT lower lobe likely chronic fibro sis. No focal pneumonia or pleural fluid. Bones: Osteopenia. XR/XR chest 1V portable [id number] IMPRESSION: 1. No acute chest findings. 2. Fibrotic opacities in the lung bases are unchanged since the prior radiogra ph December 12, 2022. 3. Advanced chronic emphysematous changes.
--- NOTE | 2022-12-25 16:00 | CTR_ITS ---
PROCEDURE INFORMATION: Exam: CT Abdomen And Pelvis With Contrast Exam date and time: 12/25/2022 4:50 PM Age: 82 years old Clinical indication: Abdominal pain; Generalized; Prior surgery; Surgery date: 6+ months; Surgery type: Appy, christofer; Additional info: Abd pain TECHNIQUE: Imaging protocol: Computed tomography of the abdomen and pelvis with contrast. Radiation optimization: All CT scans at this facility use at least one of these dose optimization techniques: automated exposure control; mA and/or kV adjustment per patient size (includes targeted exams where dose is matched to clinical indication); or iterative reconstruction. Contrast material: OMNI 350; Contrast volume: 100 ml; Contrast route: INTRAVENOUS (IV); REPORTING DATA: Count of CT and Cardiac NM exams in prior 12 months: This patient has received 5 known CTs and 0 known cardiac nuclear medicine studies in the 12 months prior to the current study. COMPARISON: CT abdomen pelvis wo con [id number] 01/25/2022 1:08 PM RADIATION DOSE METRICS: Total DLP (mGy-cm): 419 FINDINGS: Lungs: Emphysematous changes. Bibasilar atelectasis versus infiltrate. Liver: Right hepatic lobe cyst, negative for follow-up advised. Gallbladder and bile ducts: Cholecystectomy. Mild to moderate biliary dilation, likely related to prior cholecystectomy. Pancreas: Normal. No ductal dilation. Spleen: Normal. No splenomegaly. Adrenal glands: Normal. No mass. Kidneys and ureters: Left kidney cyst, negative follow-up advised. Stomach and bowel: Wall thickening and edema seen a loop of small bowel in the left mid abdomen, may reflect a localized enteritis, a mass lesion is also a consideration, finding is best seen series 3, image 42. Diverticulosis. Appendix: No evidence of appendicitis. Intraperitoneal space: Unremarkable. No free air. No significant fluid collection. Vasculature: Unremarkable. No abdominal aortic aneurysm. Lymph nodes: Unremarkable. No enlarged lymph nodes. Urinary bladder: Urinary bladder wall thickening may be due to chronic outflow obstruction, infection or nondistention are also considerations depending on the clinical scenario. Reproductive: Nodular prostate gland enlargement. Bones/joints: Unremarkable. No acute fracture. Soft tissues: Unremarkable. CT/CT abdomen pelvis w con* [id number] IMPRESSION: 1. Wall thickening and edema seen a loop of small bowel in the left mid abdomen, may reflect a localized enteritis, a mass lesion is also a consideration, finding is best seen series 3, image 42. 2. Emphysematous changes. 3. Bibasilar atelectasis versus infiltrate. 4. Cholecystectomy. 5. Mild to moderate biliary dilation, likely related to prior cholecystectomy. 6. Left kidney cyst, negative follow-up advised. 7. Nodular prostate gland enlargement. 8. Urinary bladder wall thickening may be due to chronic outflow obstruction, infection or nondistention are also considerations depending on the clinical scenario. 9. Diverticulosis without diverticulitis. 10. Right hepatic lobe cyst, negative for follow-up advised. COMMENTS: Consistent with the [employer]'s Incidental Findings Committee white paper (J Am Umesh Radiol 2018): Any incidental renal lesion less than 1 cm or classified as too small to characterize, or any incidental cystic renal lesion characterized as simple-appearing, is likely benign. No follow-up imaging is recommended for these lesions per consensus recommendations based on imaging criteria.
--- NOTE | 2022-12-25 16:06 | W.ED.ABDPA2 ---
HPI - Abdominal Pain General: Chief Complaint: Abdominal Pain Stated Complaint: Abd Pain Time Seen by Provider: 12/25/22 15:55 Source: patient Mode of arrival: ambulatory History of Present Illness: 82-year-old male who presents to the emergency room with complaints of 25 pound weight loss over the last 3 months. Nauseous intermittent abdominal pain poor appetite denies diarrhea. No vomiting no hematochezia or melena. No dysuria urgency or frequency or hematuria patient is a former smoker. Denies any shortness of breath was treated for pneumonia with antibiotics approximately a month ago. He is diabetic he started a recent changes yesterday with chronic long-term medications. He has had a cholecystectomy and appendectomy. He has seen Dr. [place] for chronic voice hoarseness recently MD elicited complaint: abdominal pain Onset (ago): month(s) Location: Diffuse Quality: aching Radiation: none Migration to: no migration Exacerbating factors: nothing Relieving factors: nothing Associated Symptoms: Reports anorexia and bloating; Denies belching, change in bowel habits, change in stool character, chills, coffee ground emesis, constipation, GI cramping, diarrhea, dyspepsia, dysuria, excessive flatus, fever(s), heartburn, hematochezia, hematuria, hematemesis, fecal incontinence, loose stools, melena, nausea, poor appetite, syncope and vomiting Review of Systems Const: Denies: fever(s) or chills ENMT: Denies: throat pain, ear or mastoid pain, nasal discharge or nasal congestion Card: Denies: chest pain or syncope Resp: Denies: dyspnea, productive cough or non-productive cough GI: Reports: abdominal pain and bloating; Denies: nausea, vomiting, hematemesis, coffee ground emesis, heartburn, diarrhea, constipation, GI cramping, belching, excessive flatus, fecal incontinence, change in bowel habits, change in stool character, hematochezia or melena : Denies: dysuria, urinary frequency, urinary urgency or hematuria Skin/Breast: Denies: rash or pruritus PFSH ED PFSH: Medical History C. difficile colitis Diabetes mellitus Dysphagia Myasthenia gravis Periodontal disease Sinus bradycardia Surgical History Hx of appendectomy Hx of cholecystectomy Family History Father , AT 73 Heart disease Mother , AT 64 Diabetes Social History Smoking and tobacco status: never smoked Alcohol intake: never Substance/Drug Use: never Marital status: Current occupational status: retired and disabled Physical Exam Const: GENERAL APPEARANCE: cooperative ORIENTATION/CONSCIOUSNESS: Yes awake, Yes oriented to person, Yes oriented to place and Yes oriented to time HENMT: COMMON NORMALS: normocephalic, atraumatic and hearing grossly normal bilaterally HEAD & SCALP: normocephalic and atraumatic Resp: COMMON NORMALS: normal respiratory effort, No retractions, No use of accessory muscles and clear to auscultation bilaterally AUSCULTATION: clear to auscultation bilaterally Cardio: COMMON NORMALS: regular rate, regular rhythm and No murmurs present (Cardio) RATE: regular rate RHYTHM: regular rhythm GI: COMMON NORMALS: Soft to palpation and No hepatosplenomegaly present AUSCULTATION: Yes normoactive bowel sounds PALPATION: Yes Soft to palpation, No Tenderness to palpation present (GI), No Guarding due to palpation present (GI) and Yes No hepatosplenomegaly present Extremity: COMMON NORMALS: normal to inspection, capillary refill normal, no clubbing, cyanosis or edema, no calf tenderness and no pedal edema Neuro: SENSORIUM/ORIENTATION: Yes oriented to person, Yes oriented to place and Yes oriented to time Skin: COMMON NORMALS: no rashes or lesions noted GENERAL SKIN EXAM: no rashes or lesions noted Course Vital Signs: Vital signs: Vital Signs Temperature 98.4 F 12/25/22 15:54 Pulse Rate 66 12/25/22 18:37 Respiratory Rate 17 12/25/22 18:37 Blood Pressure 154/80 12/25/22 18:37 Pulse Oximetry 100 12/25/22 18:37 Oxygen Delivery Me thod Room Air 12/25/22 15:54 MDM - Abdominal Pain Medical Decision Making CT shows a small bowel thickening possible mass. This should have further evaluation as an outpatient. Laboratory tests otherwise reviewed he is not acutely ill there is no emergent condition present but he certainly does require further work-up. Recommend he follow-up with his primary care doctor for referral to GI or general surgery. Continue to use nutritional supplements such as boost Sustacal or Ensure. Return if has further problems. Differential Diagnosis Likely abdominal pain, calculus of kidney, constipation, diverticulitis, pancreatitis and small bowel obstruction Medical Records I reviewed the patient's medical records. Lab Data 12/25/22 16:14 12/25/22 16:14 Labs/Radiology: Radiology Impressions Abdomen/Pelvis CT 12/25/22 16:00 IMPRESSION: 1. Wall thickening and edema seen a loop of small bowel in the left mid abdomen, may reflect a localized enteritis, a mass lesion is also a consideration, finding is best seen series 3, image 42. 2. Emphysematous changes. 3. Bibasilar atelectasis versus infiltrate. 4. Cholecystectomy. 5. Mild to moderate biliary dilation, likely related to prior cholecystectomy. 6. Left kidney cyst, negative follow-up advised. 7. Nodular prostate gland enlargement. 8. Urinary bladder wall thickening may be due to chronic outflow obstruction, infection or nondistention are also considerations depending on the clinical scenario. 9. Diverticulosis without diverticulitis. 10. Right hepatic lobe cyst, negative for follow-up advised. COMMENTS: Consistent with the [employer]'s Incidental Findings Committee white paper (J Am Umesh Radiol 2018): Any incidental renal lesion less than 1 cm or classified as too small to characterize, or any incidental cystic renal lesion characterized as simple-appearing, is likely benign. No follow-up imaging is recommended for these lesions per consensus recommendations based on imaging criteria. Chest X-Ray 12/25/22 16:00 IMPRESSION: 1. No acute chest findings. 2. Fibrotic opacities in the lung bases are unchanged since the prior radiograph December 12, 2022. 3. Advanced chronic emphysematous changes. Laboratory Results WBC 11.1 10^3/uL (4.0-10.0) H 12/25/22 16:14 RBC 4.72 10^6/uL (4.1-5.3) 12/25/22 16:14 Hgb 14.0 g/dL (11.7-16.6) 12/25/22 16:14 Hct 42.2 % (42.0-52.0) 12/25/22 16:14 MCV 89.4 fl (80-94) 12/25/22 16:14 MCH 29.7 pg (28.0-34.0) 12/25/22 16:14 MCHC 33.2 g/dL (30.0-36.0) 12/25/22 16:14 RDW 12.9 % (12.1-15.1) 12/25/22 16:14 Plt Count 284 10^3/cmm (130-400) 12/25/22 16:14 MPV 9.6 fL (7.4-10.4) 12/25/22 16:14 Neut % (Auto) 73.8 % 12/25/22 16:14 Lymph % (Auto) 13.5 % 12/25/22 16:14 [place] % (Auto) 10.3 % 12/25/22 16:14 Eos % (Auto) 1.3 % 12/25/22 16:14 Baso % (Auto) 0.4 % 12/25/22 16:14 Neut # (Auto) 8.22 10^3/uL (1.8-7.7) H 12/25/22 16:14 Lymph # (Auto) 1.5 10^3/uL (0.8-4.8) 12/25/22 16:14 [place] # (Auto) 1.2 10^3/uL (0.2-0.9) H 12/25/22 16:14 Eos # (Auto) 0.1 10^3/uL (0.0-0.8) 12/25/22 16:14 Baso # (Auto) 0.1 10^3/uL (0.0-0.1) 12/25/22 16:14 Nucleated RBC % (auto) 0 % 12/25/22 16:14 Nucleated RBCs # 0.0 /100WBC 12/25/22 16:14 Sodium 138 mmol/L (136-145) 12/25/22 16:14 Potassium 4.1 mmol/L (3.5-5.1) 12/25/22 16:14 Chloride 101 mmol/L (98-107) 12/25/22 16:14 Carbon Dioxide 26 mmol/L (22-29) 12/25/22 16:14 Anion Gap 15.1 (5-19) 12/25/22 16:14 BUN 11 mg/dL (8-23) 12/25/22 16:14 Creatinine 0.8 mg/dL (0.7-1.2) 12/25/22 16:14 GFR Calculation Not Reportable 12/25/22 16:14 Glucose 95 mg/dL (65-115) 12/25/22 16:14 Calculated Osmolality 285 mOsm/kg (285-295) 12/25/22 16:14 Calcium 9.3 mg/dL (8.5-10.5) 12/25/22 16:14 Total Bilirubin 0.5 mg/dL (0.15-1.2) 12/25/22 16:14 AST 10 U/L (0-40) 12/25/22 16:14 ALT 6 U/L (0-41) 12/25/22 16:14 Alkaline Phosphatase 72 U/L (40-130) 12/25/22 16:14 Total Protein 7.2 g/dL (6.6-8.7) 12/25/22 16:14 Albumin 3.4 g/dL (3.5-5.2) L 12/25/22 16:14 Globulin 3.8 g/dL (1.3-4.6) 12/25/22 16:14 Lipase 49 U/L (13-60) 12/25/22 16:14 Urine Color Colorless (Yellow) 12/25/22 14:32 Urine Appearance Clear (CLEAR) 12/25/22 14:32 Urine pH 7 (5-7) 12/25/22 14:32 Ur Specific [place] 1.005 (1.005-1.030) 12/25/22 14:32 Urine Protein Neg (Negative) 12/25/22 14:32 Urine Glucose (UA) Norm (Normal) 12/25/22 14:32 Urine Ketones Negative (Negative) 12/25/22 14:32 Urine Blood 2+ (Negative) H 12/25/22 14:32 Urine Nitrate Negative (Negative) 12/25/22 14:32 Urine Bilirubin Neg (Negative) 12/25/22 14:32 Urine Urobilinogen Norm mg/dL (Negative) 12/25/22 14:32 Ur Leukocyte Esterase Negative (Negative) 12/25/22 14:32 Urine RBC None /hpf (0-2) 12/25/22 14:32 Urine WBC None /hpf (0-5) 12/25/22 14:32 Ur Squamous Epith Cells None /hpf (0-5) 12/25/22 14:32 Amorphous Sediment Not Reportable 12/25/22 14:32 Urine Bacteria Trace /hpf (NONE) 12/25/22 14:32 Discharge Plan Discharge Patient Disposition: Home Clinical Impression: Small bowel mass Condition: Stable Prescriptions: No Action Levemir FlexTouch U-100 Insuln 100 unit/mL (3 mL) insulin pen 18 unit SUBCUT BEDTIME pyridostigmine bromide [Mestinon] 60 mg tablet 60 mg PO TID multivitamin Tablet 1 tab PO DAILY acyclovir 200 mg capsule 200 mg PO DAILY 90 Days Qty: 90 1RF pantoprazole 40 mg tablet,delayed release (DR/EC) 40 mg PO DAILY 90 Days Qty: 90 1RF Hold Instructions: Resume on 10/06/22. propranolol 10 mg tablet 10 mg PO BID PRN (Reason: tremor) 90 Days Qty: 180 1RF tamsulosin [Flomax] 0.4 mg capsule 0.4 mg PO DAILY 30 Days Qty: 30 0RF permethrin 5 % cream 1 applic topical Q14D Qty: 120 3RF Rx Instructions: apply second treatment 14 days after first loratadine [Claritin] 10 mg tablet 10 mg PO DAILY simvastatin 40 mg tablet 40 mg PO BEDTIME 90 Days Qty: 90 3RF clotrimazole-betamethasone 1-0.05 % cream 1 applic topical BID 14 Days Qty: 45 0RF Rx Instructions: apply to penis 2 times daily (DME) lancets [TRUEplus Lancets] 33 gauge misc See Rx Instructions .ROUTE .MEDSUPPLY Qty: 100 Rx Instructions: As directed (DME) True Metrix Glucose Test Strip Strip See Rx Instructions .ROUTE .MEDSUPPLY Qty: 10 Rx Instructions: As directed (DME) pen needle, diabetic [Droplet Pen Needle] 32 gauge x 5/32 needle See Rx Instructions .ROUTE .MEDSUPPLY Qty: 50 Rx Instructions: As directed benzonatate 100 mg capsule 100 mg PO BID PRN (Reason: cough) Qty: 60 2RF levofloxacin 750 mg tablet 750 mg PO DAILY 7 Days Qty: 7 0RF miscellaneous medical supply Misc See Rx Instructions miscellaneous .COMPLEX Qty: 1 11RF Rx Instructions: as directed; droplet pen needle 30g 5/32n 4mm, 1 box, qt at needed insulin aspart U-100 [Novolog U-100 Insulin aspart] 100 unit/mL solution 10 unit SUBCUT TID MDD 45 30 Days Qty: 10 5RF insulin aspart U-100 [Novolog FlexPen U-100 Insulin] 100 unit/mL (3 mL) insulin pen 10 unit SUBCUT TID Qty: 15 5RF Rx Instructions: Inject 10 units three times daily not to exceed 45 units daily acetaminophen [Tylenol] 325 mg Capsule 325 mg PO QID PRN (Reason: Fever) Xarelto 20 mg tablet 20 mg PO BEDTIME Rx Instructions: must administer with evening meal 340B Discharge Orders: Discharge ED (Routine); Ordered 12/25/22 Ordered By: Maxim Louis Referrals: Toshia Tapia MD [Primary Care Provider] - Discharge Diet: Usual diet Discharge Activity: Increase activity as tolerated Patient Instructions: Opioid Safety, Pain Management Activity Restrictions/Additional Instructions: Follow-up with your doctor for further evaluation of the CT findings in the emergency room today. Continue to use nutritional supplements such as boost Ensure Sustacal. Coding Level of Care Code ED Director Workers [employer] for [employer]
[2022-12-25] MEDS: sodium chloride 0.9% 1,000 ML 999 ML IV (16:20)
[2022-12-25 16:21] LABS: Basophils # 0.1 10^3/uL (0.0-0.1); Basophils % 0.4 %; Eosinophils # 0.1 10^3/uL (0.0-0.8); Eosinophils % 1.3 %; Hematocrit 42.2 % (42.0-52.0); Lymphocytes # 1.5 10^3/uL (0.8-4.8); Lymphocytes % 13.5 %; Mean Corpuscular HGB Conc 33.2 g/dL (30.0-36.0); Mean Corpuscular Hemoglobin 29.7 pg (28.0-34.0); Mean Corpuscular Volume 89.4 fl (80-94); Mean Platelet Volume 9.6 fL (7.4-10.4); Monocytes # 1.2 10^3/uL (0.2-0.9); Monocytes % 10.3 %; Neutrophils # 8.22 10^3/uL (1.8-7.7); Neutrophils % 73.8 %; Nucleated Red Blood Cells % 0 %; Platelet Count 284 10^3/cmm (130-400); Red Blood Count 4.72 10^6/uL (4.1-5.3); Red Cell Distribution Width 12.9 % (12.1-15.1); White Blood Count 11.1 10^3/uL (4.0-10.0)
--- NOTE | 2022-12-25 16:21 | PC.NURSE ---
PT PLACED ON CONTINUOUS SPO2, NIBP, AND CM.
[2022-12-25 16:37] LABS: Alanine Aminotransferase 6 U/L (0-41); Albumin Level 3.4 g/dL (3.5-5.2); Alkaline Phosphatase 72 U/L (40-130); Anion Gap 15.1 (5-19); Aspartate Amino Transferase 10 U/L (0-40); Blood Urea Nitrogen 11 mg/dL (8-23); Calcium 9.3 mg/dL (8.5-10.5); Carbon Dioxide 26 mmol/L (22-29); Chloride 101 mmol/L (98-107); Globulin 3.8 g/dL (1.3-4.6); Glucose 95 mg/dL (65-115); Lipase 49 U/L (13-60); Osmolality Calculated 285 mOsm/kg (285-295); Potassium 4.1 mmol/L (3.5-5.1); Sodium 138 mmol/L (136-145); Total Bilirubin 0.5 mg/dL (0.15-1.2); Total Protein 7.2 g/dL (6.6-8.7)
[2022-12-25] MEDS: iohexol 350 mg/mL 500 mL Btl (per mL) IV (16:57)
[2022-12-25 17:03] LABS: Urine Color Colorless (Yellow)
[2022-12-25 17:04] LABS: Add Urine Culture? No; Add Urine Microscopic? YES; Bacteria Urine TRACE /hpf; Bilirubin Urine Neg (Negative); Blood Urine 2+ (Negative); Glucose Urine UA Norm (Normal); Ketones Urine Negative (Negative); Leukocyte Esterase Urine Negative (Negative); Nitrate Urine Negative (Negative); Protein Urine Neg (Negative); Specific Gravity, Urine 1.005 (1.005-1.030); Urine Appearance Clear (CLEAR); Urobilinogen Urine Norm (Negative); pH Urine 7 (5-7)
[2022-12-25 18:37] VITALS: BP 154/80; PULSE 66; RESP 17; O2SAT 100
== END 2022-12-25 18:39 | disposition home or self-care (01) ==
PROVIDERS: Emergency Provider Family Medicine; PCP Family Medicine
DX: K63.9 Disease of intestine, unspecified (principal); Z79.4 Long term (current) use of insulin; E11.9 Type 2 diabetes mellitus without complications
CPT/HCPCS: 71045; 74177; 80053; 81001; 83690; 85025; 99285; J7030; Q9967

== ENCOUNTER → 2023-01-05 15:16 | Outpatient (BNVA) | payer MEDICARE, SELFPAY | PROVIDERS: PCP Family Medicine; Visit Provider Emergency Medicine | DX: J02.9 Acute pharyngitis, unspecified (principal) | CPT/HCPCS: 87071; 87880 ==

== ENCOUNTER → 2023-02-12 10:25 | Outpatient (BNVA) | payer MEDICARE, SELFPAY | PROVIDERS: PCP Family Medicine; Visit Provider Otolaryngology | DX: J38.01 Paralysis of vocal cords and larynx, unilateral (principal); R49.0 Dysphonia; K21.9 Gastro-esophageal reflux disease without esophagitis | CPT/HCPCS: 99213; 99214 ==

== ENCOUNTER → 2023-04-18 09:45 | Outpatient (BNVA) | payer MEDICARE, SELFPAY | PROVIDERS: PCP Family Medicine; Visit Provider Family Medicine | DX: E78.5 Hyperlipidemia, unspecified; Z79.4 Long term (current) use of insulin; E11.9 Type 2 diabetes mellitus without complications | CPT/HCPCS: 80053; 80061; 83036 ==

== ENCOUNTER → 2023-09-18 12:59 | Outpatient (BNVA) | payer MEDICARE, SELFPAY | PROVIDERS: PCP Family Medicine; Visit Provider Nurse Practitioner Family | DX: R30.0 Dysuria (principal); R82.90 Unspecified abnormal findings in urine; L98.9 Disorder of the skin and subcutaneous tissue, unspecified | CPT/HCPCS: 81000 ==

== ENCOUNTER → 2023-10-17 10:44 | Outpatient (BNVA) | payer MEDICARE, SELFPAY | PROVIDERS: PCP Family Medicine; Visit Provider Family Medicine | DX: N40.1 Benign prostatic hyperplasia with lower urinary tract symptoms (principal); R35.1 Nocturia; E11.9 Type 2 diabetes mellitus without complications; E78.5 Hyperlipidemia, unspecified; G70.00 Myasthenia gravis without (acute) exacerbation; G25.0 Essential tremor; K29.70 Gastritis, unspecified, without bleeding; Z79.4 Long term (current) use of insulin; K21.9 Gastro-esophageal reflux disease without esophagitis; A60.00 Herpesviral infection of urogenital system, unspecified; K29.30 Chronic superficial gastritis without bleeding; E78.2 Mixed hyperlipidemia | CPT/HCPCS: 80053; 83036; 85025 ==

== ENCOUNTER → 2023-12-12 11:39 | Outpatient (BNVA) | payer MEDICARE, SELFPAY | PROVIDERS: PCP Family Medicine; Visit Provider Family Medicine | DX: J06.9 Acute upper respiratory infection, unspecified (principal); J44.9 Chronic obstructive pulmonary disease, unspecified | CPT/HCPCS: 71046; 80053; 85025 ==

== ENCOUNTER → 2024-04-22 10:24 | Outpatient (BNVA) | payer MEDICARE, SELFPAY | PROVIDERS: PCP Family Medicine; Visit Provider Family Medicine | DX: E11.9 Type 2 diabetes mellitus without complications (principal); Z79.4 Long term (current) use of insulin | CPT/HCPCS: 80053; 80061; 83036 ==

== ENCOUNTER → 2024-10-15 10:26 | Outpatient (BNVA) | payer MEDICARE, SELFPAY | PROVIDERS: PCP Family Medicine; Visit Provider Nurse Practitioner | DX: R25.2 Cramp and spasm (principal); Z79.899 Other long term (current) drug therapy | CPT/HCPCS: 80048; 83735; 84443 ==

== ENCOUNTER → 2024-11-04 10:54 | Outpatient (BNVA) | payer MEDICARE, SELFPAY | PROVIDERS: PCP Family Medicine; Visit Provider Family Medicine | DX: E78.2 Mixed hyperlipidemia (principal); E11.9 Type 2 diabetes mellitus without complications; Z79.4 Long term (current) use of insulin | CPT/HCPCS: 80048; 80061; 83036 ==

== ENCOUNTER → 2025-02-11 11:27 | Outpatient (BNVA) | payer MEDICARE, SELFPAY | PROVIDERS: PCP Family Medicine; Visit Provider Family Medicine | DX: E11.9 Type 2 diabetes mellitus without complications (principal); Z79.4 Long term (current) use of insulin | CPT/HCPCS: 80048; 83036 ==

== ENCOUNTER → 2025-03-17 10:12 | Outpatient (BNVA) | payer MEDICARE, SELFPAY | PROVIDERS: PCP Family Medicine; Referring Provider Family Medicine; Visit Provider Family Medicine | DX: E11.9 Type 2 diabetes mellitus without complications (principal); Z79.4 Long term (current) use of insulin | CPT/HCPCS: 83036 ==

== ENCOUNTER → 2025-04-03 08:57 | Outpatient (BNVA) | payer MEDICARE, SELFPAY | PROVIDERS: PCP Family Medicine; Visit Provider Nurse Practitioner | DX: R50.9 Fever, unspecified (principal) | CPT/HCPCS: 87400; 87426 ==

== ENCOUNTER → 2025-04-27 10:27 | Outpatient (BNVA) | payer MEDICARE, SELFPAY | PROVIDERS: PCP Family Medicine; Visit Provider Nurse Practitioner | DX: R53.83 Other fatigue (principal) | CPT/HCPCS: 82607; 85025 ==